=== PATIENT | female | born 1960 | race Caucasian/White ===

== ENCOUNTER 2017-10-04 19:43 | Emergency (ER) | payer OTHER ==
[2017-10-04 20:24] VITALS: BP 194/84
[2017-10-04] MEDS ORDERED: LORazepam 0.5 MG Tab PO ONE (21:39)
--- NOTE | 2017-10-04 23:25 | EDM.PDOC ---
ED HPI GENERAL MEDICAL PROBLEM - General Chief Complaint: Cardiovascular Problem Stated Complaint: HIGH BLOOD PRES. Time Seen by Provider: 10/04/17 20:50 Source of Information: Reports: Patient History Limitations: Reports: No Limitations - History of Present Illness INITIAL COMMENTS - FREE TEXT/NARRATIVE: 57-year-old female presents for evaluation and treatment of high blood pressure. Patient reports that her blood pressure was 190/106 at home. She contacted her primary care provider who instructed her to take a second dose of 5 mg amlodipine as well as 25 mg of HCTZ. In addition to these medications she did take her normal 5 mg of amlodipine and valsartan 320 mg. Upon arrival to the ER the patient's blood pressure is 194/84. Due to the ER being dizzy when I entered the room her blood pressure is now 142/68. Patient Denies any chest pain, shortness of breath, vision changes. Reports that she does have a headache but attributes this to a right ear ache. She is currently on amoxicillin for a right otitis media. She did feel nauseous earlier but has not had any vomiting. - Related Data Allergies Allergy/AdvReac Type Severity Reaction Status Date / Time No Known Allergies Allergy Verified 10/04/17 20:24 Home Meds: Home Meds LORazepam [Ativan] 0.5 mg PO ASDIRECTED PRN #10 tablet 03/26/16 [Rx] Levothyroxine 25 mcg PO ACBREAKFAST 03/26/16 [History] Sertraline [Zoloft] 50 mg PO BEDTIME 03/26/16 [History] Valsartan [Diovan] 160 mg PO BID #30 tablet 03/26/16 [Rx] Amoxicillin [Amoxil] 875 mg PO BID 10/04/17 [History] Past Medical History Cardiovascular History: Reports: Hypertension Psychiatric History: Reports: Depression Endocrine/Metabolic History: Reports: Hypothyroidism Social & Family History - Family History Cardiac: Reports: Hypertension, Stent - Tobacco Use Smoking Status *Q: Never Smoker Second Hand Smoke Exposure: No - Caffeine Use Caffeine Use: Reports: Coffee - Alcohol Use Days Per Week of Alcohol Use: 0 - Recreational Drug Use Recreational Drug Use: No ED ROS GENERAL - Review of Systems Review Of Systems: See Below HEENT: Reports: Ear Pain (Right). Denies: Vision Change Respiratory: Denies: Shortness of Breath Cardiovascular: Reports: Blood Pressure Problem. Denies: Chest Pain GI/Abdominal: Reports: Nausea (Earlier now resolved). Denies: Vomiting Neurological: Reports: Headache ED EXAM, GENERAL - Physical Exam Exam: See Below Exam Limited By: No Limitations General Appearance: Alert, WD/WN, No Apparent Distress Eye Exam: Bilateral Eye: Normal Inspection, PERRL Ears: Normal External Exam Ear Exam: Left Ear: TM normal (Right tympanic membrane is obscured by cerumen) Nose: Normal Inspection Throat/Mouth: Normal Inspection, Normal Lips, Normal Voice, No Airway Compromise Respiratory/Chest: No Respiratory Distress, Lungs Clear, Normal Breath Sounds Cardiovascular: Normal Peripheral Pulses, Regular Rate, Rhythm, No Murmur Neurological: Alert, Oriented, Normal Cognition Psychiatric: Normal Affect, Normal Mood Skin Exam: Warm, Dry, Normal Color EKG INTERPRETATION EKG Date: 10/04/17 Time: 21:55 Rhythm: NSR Rate (Beats/Min): 54 Lebeau: Normal P-Wave: Present QRS: Normal ST-T: Normal QT: Normal EKG Interpretation Comments: NSR at 54 bpm. No acute changes. Reviewed by myself and Dr. Moctezuma. Course - Vital Signs Last Recorded V/S: Last Vital Signs Temp 36.2 C 10/04/17 20:17 Pulse 62 10/04/17 20:17 Resp 17 10/04/17 20:17 BP 194/84 H 10/04/17 20:17 Pulse Ox 100 10/04/17 20:17 - Orders/Labs/Meds Labs: Laboratory Tests 10/04/17 10/04/17 10/04/17 Range/Units 21:50 21:50 21:52 WBC 12.06 H (3.98-10.04) K/mm3 RBC 4.67 (3.98-5.22) M/mm3 Hgb 13.5 (11.2-15.7) gm/L Hct 40.4 (34.1-44.9) % MCV 86.5 (79.4-94.8) fl MCH 28.9 (25.6-32.2) pg MCHC 33.4 (32.2-35.5) g/dl RDW Std Deviation 41.8 (36.4-46.3) fL Plt Count 354 (182-369) K/mm3 MPV 9.9 (9.4-12.3) fl Neut % (Auto) 70.5 (34.0-71.1) % Lymph % (Auto) 17.0 L (19.3-51.7) % Glynn % (Auto) 7.0 (4.7-12.5) % Eos % (Auto) 4.9 (0.7-5.8) Baso % (Auto) 0.2 (0.1-1.2) % Neut # (Auto) 8.50 H (1.56-6.13) K/mm3 Lymph # (Auto) 2.05 (1.18-3.74) K/mm3 Glynn # (Auto) 0.84 H (0.24-0.36) K/mm3 Eos # (Auto) 0.59 H (0.04-0.36) K/mm3 Baso # (Auto) 0.03 (0.01-0.08) K/mm3 Sodium 141 (136-145) mEq/L Potassium 3.8 (3.5-5.1) mEq/L Chloride 102 (98-107) mEq/L Carbon Dioxide 29 (21-32) mEq/L Anion Gap 13.8 (5-15) BUN 14 (7-18) mg/dL Creatinine 0.8 (0.55-1.02) mg/dL Est Cr Clr Drug Dosing 59.89 mL/min Estimated GFR (MDRD) > 60 (>60) mL/min BUN/Creatinine Ratio 17.5 (14-18) Glucose 116 H (74-106) mg/dL Calcium 9.4 (8.5-10.1) mg/dL Total Bilirubin 0.3 (0.2-1.0) mg/dL AST 20 (15-37) U/L ALT 44 (14-59) U/L Alkaline Phosphatase 104 (46-116) U/L Total Protein 7.3 (6.4-8.2) g/dl Albumin 3.9 (3.4-5.0) g/dl Globulin 3.4 gm/dL Albumin/Globulin Ratio 1.2 (1-2) Urine Color Yellow (Yellow) Urine Appearance Clear (Clear) Urine pH 5.5 (5.0-8.0) Ur Specific [place] 1.020 (1.005-1.030) Urine Protein Negative (Negative) Urine Glucose (UA) Negative (Negative) Urine Ketones Negative (Negative) Urine Occult Blood Negative (Negative) Urine Nitrite Negative (Negative) Urine Bilirubin Negative (Negative) Urine Urobilinogen 0.2 (0.2-1.0) Ur Leukocyte Esterase Negative (Negative) Urine RBC 0-5 (0-5) /hpf Urine WBC 0-5 (0-5) /hpf Ur Epithelial Cells 0-5 (0-5) /hpf Urine Bacteria Not seen (FEW) /hpf Urine Mucus Not seen (FEW) /hpf Meds: Medications Discontinued Medications Generic Name Dose Route Start Last Admin Trade Name Freq PRN Reason Stop Dose Admin Lorazepam 0.5 mg 10/04/17 21:39 10/04/17 21:47 Ativan PO 10/04/17 21:40 0.5 mg ONETIME ONE Administration - Re-Assessments/Exams Free Text/Narrative Re-Assessment/Exam: 10/04/17 23:23 I did give the patient some Ativan here in the ER as her blood pressures likely due to anxiety upon my arrival her blood pressure is greatly improved treating her at this point would cause hypotension. I reviewed the labs and EKG with the patient. Nothing emergent tonight. I informed her we'll discharge her as we try to lower blood pressure slowly over time. Sounds like she needs some medication adjustments. She is working with her primary care provider already on this and encouraged her to continue doing so. She should check her blood pressure at home and she is not doing this already. Patient's blood pressure has consistently been in the 140s systolic since receiving Ativan. I will discharge her home tonight. Discharge instructions as documented. Departure - Departure Time of Disposition: 23:23 Disposition: Home, Self-Care 01 Condition: Fair Clinical Impression: Hypertension Instructions: Hypertension, [id number] Referrals: Saad Macias MD [Primary Care Provider] - Forms: ED Department Discharge Additional Instructions: Check your blood pressure 2 or 3 times a week at different points throughout the day after a 5-15 minute rest. Do not take your blood pressure if your are experiencing any pain, or anxious or ill. If your blood pressure is high, wait 10-15 minutes and recheck your b/p. Record this in a log. continue with your current plan of care. May take your HCTZ daily as prescribed by your PCP. Follow-up with your primary care provider within 2 weeks for recheck of your symptoms. Recommend bringing your blood pressure log to that appointment. Please return to the ER if your symptoms change or worsen.
== END 2017-10-04 23:30 | disposition home or self-care (01) ==
LOC: JD.ED 19:43
DX: I10 Essential (primary) hypertension (principal)
CPT/HCPCS: 36415; 80053; 81001; 85025; 93005; 99283; A9270

== ENCOUNTER 2020-04-23 14:36 | Inpatient (IN) | payer OTHER ==
[2020-04-23] MEDS ORDERED: Sodium Chloride 0.9% 10 ML Syringe FLUSH PRN (15:11)
[2020-04-23] MEDS ORDERED: Sodium Chloride 0.9% 1,000 ML IV SCH (15:15)
--- NOTE | 2020-04-23 15:57 | CR ---
PROCEDURE INFORMATION: Exam: XR Chest, 1 View Exam date and time: 04/23/2020 3:00 PM Age: 60 years old Clinical indication: Chest pain; Patient HX: Covid positive, short of breath when walking and has cough TECHNIQUE: Imaging protocol: XR of the chest Views: 1 view. COMPARISON: No relevant prior studies available. FINDINGS: Lungs: Very minimal patchy opacity right mid and left lower lungs. Pleural space: Unremarkable. No pleural effusion. No pneumothorax. Heart/Mediastinum: Unremarkable. No cardiomegaly. Bones/joints: Unremarkable. IMPRESSION: Minimal bilateral ground-glass lung opacities suggest minimal bilateral pneumonia. Thank you for allowing us to participate in the care of your patient. Dictated and Authenticated by: Chas Hughes MD 04/23/2020 4:49 PM Central Time ([place] & [place]) [facility]
--- NOTE | 2020-04-23 15:58 | EDM.PDOC ---
ED HPI GENERAL MEDICAL PROBLEM - General Chief Complaint: Respiratory Problem Stated Complaint: COVID + AND SOB Time Seen by Provider: 04/23/20 14:50 Source of Information: Reports: Patient History Limitations: Reports: No Limitations - History of Present Illness INITIAL COMMENTS - FREE TEXT/NARRATIVE: The patient presents with shortness of breath, cough and fever. She was isis gnosed with COVID 19 and she is about 7 days out from symptoms start. She has pulse oximeter at home and her oxygen saturations have gone down to the mid 80s. She has a productive cough. She also has no appetite. She has no chest pain. She has no abdominal pain, nausea or vomiting. She has a history of asthma and she is on medications for that. Her is a technology coach and teacher and he brou ght it home. He is better and back at work. Onset: Gradual Duration: Day(s): (7) Severity: Moderate Improves with: Reports: None Worsens with: Reports: None Associated Symptoms: Reports: Cough, Fever/Chills, Shortness of Breath. Denies: Chest Pain, Headaches, Nausea/Vomiting Chest Pain Score (Numeric/FACES): 3 - Related Data Allergies Allergy/AdvReac Type Severity Reaction Status Date / Time No Known Allergies Allergy Verified 04/23/20 14:49 Home Meds: Home Meds LORazepam [Ativan] 0.5 mg PO ASDIRECTED PRN #10 tablet 03/26/16 [Rx] Levothyroxine 25 mcg PO ACBREAKFAST 03/26/16 [History] Sertraline [Zoloft] 50 mg PO BEDTIME 03/26/16 [History] Valsartan [Diovan] 160 mg PO BID #30 tablet 03/26/16 [Rx] Amoxicillin [Amoxil] 875 mg PO BID 10/04/17 [History] Past Medical History Cardiovascular History: Reports: Hypertension Respiratory History: Reports: Asthma Psychiatric History: Reports: Depression Endocrine/Metabolic History: Reports: Hypothyroidism - Infectious Disease History Infectious Disease History: Reports: Novel Coronavirus Social & Family History - Family History Cardiac: Reports: Hypertension, Stent - Tobacco Use Tobacco Use Status *Q: Never Tobacco User Second Hand Smoke Exposure: No - Caffeine Use Caffeine Use: Reports: Coffee - Recreational Drug Use Recreational Drug Use: No ED ROS GENERAL - Review of Systems Review Of Systems: See Below Constitutional: Reports: Fever, Chills, Malaise, Weakness, Fatigue HEENT: Reports: No Symptoms Respiratory: Reports: Shortness of Breath, Cough Cardiovascular: Reports: No Symptoms Endocrine: Reports: No Symptoms GI/Abdominal: Reports: No Symptoms : Reports: No Symptoms Musculoskeletal: Reports: No Symptoms ED EXAM, GENERAL - Physical Exam Exam: See Below Exam Limited By: No Limitations General Appearance: Alert, No Apparent Distress Ears: Normal External Exam Nose: Normal Inspection Head: Atraumatic, Normocephalic Neck: Normal Inspection Respiratory/Chest: No Respiratory Distress, Lungs Clear, Normal Breath Sounds Cardiovascular: Regular Rate, Rhythm, No Edema, No Murmur GI/Abdominal: Soft, Non-Tender, No Organomegaly, No Mass Back Exam: Normal Inspection Course - Vital Signs Last Recorded V/S: Last Vital Signs Temp 97.3 F 04/23/20 14:44 Pulse 73 04/23/20 14:44 Resp 20 04/23/20 14:44 BP 161/59 H 04/23/20 14:44 Pulse Ox 95 04/23/20 14:44 - Orders/Labs/Meds Orders: Active Orders 24 hr Category Date Time Status Cardiac Monitoring [RC] . DIRECTED Care 04/23/20 15:11 Active Oxygen Therapy [RC] PRN Care 04/23/20 15:11 Active Peripheral IV Care [RC] . DIRECTED Care 04/23/20 15:12 Active Sodium Chloride 0.9% [Normal Saline] 1,000 ml Med 04/23/20 15:15 Active IV .BOLUS Sodium Chloride 0.9% [Saline Flush] Med 04/23/20 15:11 Active 10 ml FLUSH ASDIRECTED PRN Peripheral IV Insertion Adult [OM.PC] Stat Oth 04/23/20 15:11 Ordered Medication Orders Sodium Chloride (Normal Saline) 1,000 mls @ 1,000 mls/hr IV .BOLUS CORBY Last Admin: 04/23/20 15:33 Dose: 1,000 mls/hr Documented by: CARROL Sodium Chloride (Saline Flush) 10 ml FLUSH ASDIRECTED PRN PRN Reason: Keep Vein Open Last Admin: 04/23/20 15:33 Dose: 10 ml Documented by: CARROL Labs: Laboratory Tests 04/23/20 04/23/20 04/23/20 Range/Units 15:41 15:41 15:41 WBC 7.50 (3.98-10.04) K/mm3 RBC 4.52 (3.98-5.22) M/mm3 Hgb 12.8 (11.2-15.7) gm/dl Hct 38.9 (34.1-44.9) % MCV 86.1 (79.4-94.8) fl MCH 28.3 (25.6-32.2) pg MCHC 32.9 (32.2-35.5) g/dl RDW Std Deviation 42.0 (36.4-46.3) fL Plt Count 289 (182-369) K/mm3 MPV 9.4 (9.4-12.3) fl Neut % (Auto) 73.2 H (34.0-71.1) % Lymph % (Auto) 16.4 L (19.3-51.7) % Benson % (Auto) 9.3 (4.7-12.5) % Eos % (Auto) 0.5 L (0.7-5.8) Baso % (Auto) 0.3 (0.1-1.2) % Neut # (Auto) 5.49 (1.56-6.13) K/mm3 Lymph # (Auto) 1.23 (1.18-3.74) K/mm3 Benson # (Auto) 0.70 H (0.24-0.36) K/mm3 Eos # (Auto) 0.04 (0.04-0.36) K/mm3 Baso # (Auto) 0.02 (0.01-0.08) K/mm3 Manual Slide Review Not Reportable D-Dimer, Quantitative 0.56 H (0.19-0.50) mg/L Sodium 138 (136-145) mEq/L Potassium 3.0 L (3.5-5.1) mEq/L Chloride 99 (98-107) mEq/L Carbon Dioxide 31 (21-32) mEq/L Anion Gap 11.0 (5-15) BUN 13 (7-18) mg/dL Creatinine 0.9 (0.55-1.02) mg/dL Est Cr Clr Drug Dosing 51.26 mL/min Estimated GFR (MDRD) > 60 (>60) mL/min BUN/Creatinine Ratio 14.4 (14-18) Glucose 100 (80-115) mg/dL Lactic Acid (0.4-2.0) mmol/L Calcium 8.7 (8.5-10.1) mg/dL Total Bilirubin 0.4 (0.2-1.0) mg/dL AST 24 (15-37) U/L ALT 44 (14-59) U/L Alkaline Phosphatase 77 (46-116) U/L C-Reactive Protein 5.3 H* (<1.0) mg/dL Total Protein 6.9 (6.4-8.2) g/dl Albumin 3.2 L (3.4-5.0) g/dl Globulin 3.7 gm/dL Albumin/Globulin Ratio 0.9 L (1-2) 04/23/20 Range/Units 15:41 WBC (3.98-10.04) K/mm3 RBC (3.98-5.22) M/mm3 Hgb (11.2-15.7) gm/dl Hct (34.1-44.9) % MCV (79.4-94.8) fl MCH (25.6-32.2) pg MCHC (32.2-35.5) g/dl RDW Std Deviation (36.4-46.3) fL Plt Count (182-369) K/mm3 MPV (9.4-12.3) fl Neut % (Auto) (34.0-71.1) % Lymph % (Auto) (19.3-51.7) % Benson % (Auto) (4.7-12.5) % Eos % (Auto) (0.7-5.8) Baso % (Auto) (0.1-1.2) % Neut # (Auto) (1.56-6.13) K/mm3 Lymph # (Auto) (1.18-3.74) K/mm3 Benson # (Auto) (0.24-0.36) K/mm3 Eos # (Auto) (0.04-0.36) K/mm3 Baso # (Auto) (0.01-0.08) K/mm3 Manual Slide Review D-Dimer, Quantitative (0.19-0.50) mg/L Sodium (136-145) mEq/L Potassium (3.5-5.1) mEq/L Chloride (98-107) mEq/L Carbon Dioxide (21-32) mEq/L Anion Gap (5-15) BUN (7-18) mg/dL Creatinine (0.55-1.02) mg/dL Est Cr Clr Drug Dosing mL/min Estimated GFR (MDRD) (>60) mL/min BUN/Creatinine Ratio (14-18) Glucose (80-115) mg/dL Lactic Acid 1.3 (0.4-2.0) mmol/L Calcium (8.5-10.1) mg/dL Total Bilirubin (0.2-1.0) mg/dL AST (15-37) U/L ALT (14-59) U/L Alkaline Phosphatase (46-116) U/L C-Reactive Protein (<1.0) mg/dL Total Protein (6.4-8.2) g/dl Albumin (3.4-5.0) g/dl Globulin gm/dL Albumin/Globulin Ratio (1-2) Meds: Medications Generic Name Dose Route Start Last Admin Trade Name Freq PRN Reason Stop Dose Admin Sodium Chloride 1,000 mls @ 1,000 mls/hr 04/23/20 15:15 04/23/20 15:33 Normal Saline IV 1,000 mls/hr .BOLUS CORBY Administration Sodium Chloride 10 ml 04/23/20 15:11 04/23/20 15:33 Saline Flush FLUSH 10 ml ASDIRECTED PRN Administration Keep Vein Open Discontinued Medications Generic Name Dose Route Start Last Admin Trade Name Ric PRN Reason Stop Dose Admin Dexamethasone 6 mg 04/23/20 16:37 Dexamethasone IVPUSH 04/23/20 16:38 ONETIME ONE - Re-Assessments/Exams Free Text/Narrative Re-Assessment/Exam: 04/23/20 15:58 I ordered oxygen PRN, IV NS 1L bolus, CXR and labs. 04/23/20 16:44 Her CXR shows minimal bilateral ground-glass lung opacities suggest minimal jumana ateral pneumonia. Her CBC looks good. Her D-dimer is elevated slightly at 0.56. Her K is low at 3. Her CRP is elevated at 5.3. Her oxygen saturations dropped down to 87% here. I put her on some oxygen and ordered dexamethasone 6mg IV. I feel she needs to be admitted. I called Dr Fernando and he agreed to the admission. Departure - Departure Time of Disposition: 16:50 Disposition: Admitted As Inpatient 64 Condition: Poor Clinical Impression: COVID-19, Pneumonia due to COVID-19 virus, Hypoxia - Discharge Information Forms: ED Department Discharge Sepsis Event Note (ED) - Evaluation Sepsis Screening Result: No Definite Risk - Focused Exam Vital Signs: Vital Signs Temp Pulse Resp BP Pulse Ox 04/23/20 14:44 97.3 F 73 20 161/59 H 95 - My Orders Last 24 Hours: My Active Orders 04/23/20 15:11 Cardiac Monitoring [RC] . DIRECTED Oxygen Therapy [RC] PRN Sodium Chloride 0.9% [Saline Flush] 10 ml FLUSH ASDIRECTED PRN Peripheral IV Insertion Adult [OM.PC] Stat 04/23/20 15:12 Peripheral IV Care [RC] . DIRECTED 04/23/20 15:15 Sodium Chloride 0.9% [Normal Saline] 1,000 ml IV .BOLUS - Assessment/Plan Last 24 Hours: My Active Orders 04/23/20 15:11 Cardiac Monitoring [RC] . DIRECTED Oxygen Therapy [RC] PRN Sodium Chloride 0.9% [Saline Flush] 10 ml FLUSH ASDIRECTED PRN Peripheral IV Insertion Adult [OM.PC] Stat 04/23/20 15:12 Peripheral IV Care [RC] . DIRECTED 04/23/20 15:15 Sodium Chloride 0.9% [Normal Saline] 1,000 ml IV .BOLUS
[2020-04-23] MEDS ORDERED: Dexamethasone 4 MG/ML SDV IVPUSH ONE (16:37)
[2020-04-23] MEDS ORDERED: Potassium Chloride 20 MEQ Tab.ER PO ONE ×2 (19:30→22:45)
[2020-04-23] MEDS ORDERED: Acetaminophen 325 MG Tab PO PRN (20:06)
[2020-04-23] MEDS ORDERED: Ondansetron 4 MG/2 ML SDV IV PRN (20:06)
--- NOTE | 2020-04-23 20:12 | PCM.HP.2 ---
H&P History of Present Illness - General Date of Service: 04/23/20 Admit Problem/Dx: Admission Diagnosis/Problem Admission Diagnosis/Problem Hypoxia - History of Present Illness Initial Comments - Free Text/Narative: Patient comes in today with worsening shortness of breath, cough, and fever. Patient's developed Covid my couple of weeks ago when she tested positive, and started developing symptoms, 7 days ago. She had a higher fever today and her pulse oximetry at home had gone down into the mid 80s. She has a friend who is a respiratory therapist who could Mr. to go to the emergency room for further evaluation. Patient does have a history of asthma that sounds like a cough variant asthma. She is had a decrease in appetite but denies any nausea, vomiting, or diarrhea. In the emergency department patient was found to be hypoxemic requiring 2 L to keep her oxygen saturations above 90%. Re commendation for her to be admitted for further treatment and respiratory support Chest Pain Score (Numeric/FACES): 3 - Related Data Allergies/Adverse Reactions: Allergies Allergy/AdvReac Type Severity Reaction Status Date / Time No Known Allergies Allergy Verified 04/23/20 18:40 Home Medications: Home Meds Sertraline [Zoloft] 100 mg PO BEDTIME 03/26/16 [History] Azelastine HCl 2 spray NASBOTH BEDTIME 04/23/20 [History] Fluticasone Propionate [Flonase] 2 spray NASBOTH DAILY 04/23/20 [History] Fluticasone/Vilanterol [Breo Ellipta 200-25 MCG Inhalation Kit] 1 puff INH BEDTIME 04/23/20 [History] LORazepam [Ativan] 0.5 mg PO Q6H PRN 04/23/20 [History] Tiotropium [place] [Spiriva Respimat] 2 puff INH DAILY 04/23/20 [History] amLODIPine [Norvasc] 10 mg PO BEDTIME 04/23/20 [History] hydroCHLOROthiazide [Hydrochlorothiazide] 25 mg PO BEDTIME 04/23/20 [History] Past Medical History HEENT History: Reports: Allergic Rhinitis, Impaired Vision, Other (See Below) Other HEENT History: wears glasses Cardiovascular History: Reports: Heart Murmur, Hypertension Respiratory History: Reports: Asthma, Bronchitis, Recurrent, Other (See Below) Other Respiratory History: chronic cough Psychiatric History: Reports: Anxiety, Depression Endocrine/Metabolic History: Reports: Hypothyroidism - Infectious Disease History Infectious Disease History: Reports: Novel Coronavirus - Past Surgical History HEENT Surgical History: Reports: None Cardiovascular Surgical History: Reports: None Respiratory Surgical History: Reports: None Social & Family History - Family History Family Medical History: Noncontributory Cardiac: Reports: Hypertension, Stent - Tobacco Use Tobacco Use Status *Q: Never Tobacco User Second Hand Smoke Exposure: No - Caffeine Use Caffeine Use: Reports: Coffee Caffeine Use Comment: 1 coffee per day - Recreational Drug Use Recreational Drug Use: No H&P Review of Systems - Review of Systems: Review Of Systems: Comprehensive ROS is negative, except as noted in HPI. Exam - Exam Exam: See Below - Vital Signs Vital Signs: Last Vital Signs Temp 99.3 F 04/23/20 18:34 Pulse 67 04/23/20 18:38 Resp 20 04/23/20 18:34 BP 142/77 H 04/23/20 18:38 Pulse Ox 96 04/23/20 18:38 Weight: 220 lb 11.2 oz - Exam Quality Assessment: Supplemental Oxygen General: Alert, Oriented, 4 HEENT: Conjunctiva Clear, EOMI, Hearing Intact, Mucosa Moist & [place]: Supple, Trachea Midline, 2 Lungs: Clear to Auscultation, Normal Respiratory Effort Cardiovascular: Regular Rate, Regular Rhythm GI/Abdominal Exam: Normal Bowel Sounds, Soft, Non-Tender, No Organomegaly, No Distention, No Abnormal Bruit, No Mass Back Exam: Normal Inspection Extremities: Normal Inspection, Normal Range of Motion, Non-Tender, No Pedal Edema, Normal Capillary Refill Peripheral Pulses: 2+: Posterior Tibial (L), Posterior Tibial (R), Dorsalis Pedis (L), Dorsalis Pedis (R) Skin: Warm, Dry, Intact Neuro Extensive - Mental Status: Alert, Oriented x3, Normal Mood/Affect, Normal Cognition, Memory Intact Neuro Extensive - Motor, Sensory, Reflexes: CN II-XII Intact Psychiatric: Alert, Normal Affect, Normal Mood - Patient Data Lab Results Last 24 hrs: Laboratory Results - last 24 hr 04/23/20 04/23/20 04/23/20 Range/Units 15:41 15:41 15:41 WBC 7.50 (3.98-10.04) K/mm3 RBC 4.52 (3.98-5.22) M/mm3 Hgb 12.8 (11.2-15.7) gm/dl Hct 38.9 (34.1-44.9) % MCV 86.1 (79.4-94.8) fl MCH 28.3 (25.6-32.2) pg MCHC 32.9 (32.2-35.5) g/dl RDW Std Deviation 42.0 (36.4-46.3) fL Plt Count 289 (182-369) K/mm3 MPV 9.4 (9.4-12.3) fl Neut % (Auto) 73.2 H (34.0-71.1) % Lymph % (Auto) 16.4 L (19.3-51.7) % [place] % (Auto) 9.3 (4.7-12.5) % Eos % (Auto) 0.5 L (0.7-5.8) Baso % (Auto) 0.3 (0.1-1.2) % Neut # (Auto) 5.49 (1.56-6.13) K/mm3 Lymph # (Auto) 1.23 (1.18-3.74) K/mm3 [place] # (Auto) 0.70 H (0.24-0.36) K/mm3 Eos # (Auto) 0.04 (0.04-0.36) K/mm3 Baso # (Auto) 0.02 (0.01-0.08) K/mm3 Manual Slide Review Not Reportable D-Dimer, Quantitative 0.56 H (0.19-0.50) mg/L Sodium 138 (136-145) mEq/L Potassium 3.0 L (3.5-5.1) mEq/L Chloride 99 (98-107) mEq/L Carbon Dioxide 31 (21-32) mEq/L Anion Gap 11.0 (5-15) BUN 13 (7-18) mg/dL Creatinine 0.9 (0.55-1.02) mg/dL Est Cr Clr Drug Dosing 51.26 mL/min Estimated GFR (MDRD) > 60 (>60) mL/min BUN/Creatinine Ratio 14.4 (14-18) Glucose 100 (80-115) mg/dL Lactic Acid (0.4-2.0) mmol/L Calcium 8.7 (8.5-10.1) mg/dL Total Bilirubin 0.4 (0.2-1.0) mg/dL AST 24 (15-37) U/L ALT 44 (14-59) U/L Alkaline Phosphatase 77 (46-116) U/L C-Reactive Protein 5.3 H* (<1.0) mg/dL Total Protein 6.9 (6.4-8.2) g/dl Albumin 3.2 L (3.4-5.0) g/dl Globulin 3.7 gm/dL Albumin/Globulin Ratio 0.9 L (1-2) 04/23/20 Range/Units 15:41 WBC (3.98-10.04) K/mm3 RBC (3.98-5.22) M/mm3 Hgb (11.2-15.7) gm/dl Hct (34.1-44.9) % MCV (79.4-94.8) fl MCH (25.6-32.2) pg MCHC (32.2-35.5) g/dl RDW Std Deviation (36.4-46.3) fL Plt Count (182-369) K/mm3 MPV (9.4-12.3) fl Neut % (Auto) (34.0-71.1) % Lymph % (Auto) (19.3-51.7) % [place] % (Auto) (4.7-12.5) % Eos % (Auto) (0.7-5.8) Baso % (Auto) (0.1-1.2) % Neut # (Auto) (1.56-6.13) K/mm3 Lymph # (Auto) (1.18-3.74) K/mm3 [place] # (Auto) (0.24-0.36) K/mm3 Eos # (Auto) (0.04-0.36) K/mm3 Baso # (Auto) (0.01-0.08) K/mm3 Manual Slide Review D-Dimer, Quantitative (0.19-0.50) mg/L Sodium (136-145) mEq/L Potassium (3.5-5.1) mEq/L Chloride (98-107) mEq/L Carbon Dioxide (21-32) mEq/L Anion Gap (5-15) BUN (7-18) mg/dL Creatinine (0.55-1.02) mg/dL Est Cr Clr Drug Dosing mL/min Estimated GFR (MDRD) (>60) mL/min BUN/Creatinine Ratio (14-18) Glucose (80-115) mg/dL Lactic Acid 1.3 (0.4-2.0) mmol/L Calcium (8.5-10.1) mg/dL Total Bilirubin (0.2-1.0) mg/dL AST (15-37) U/L ALT (14-59) U/L Alkaline Phosphatase (46-116) U/L C-Reactive Protein (<1.0) mg/dL Total Protein (6.4-8.2) g/dl Albumin (3.4-5.0) g/dl Globulin gm/dL Albumin/Globulin Ratio (1-2) Result Diagrams: 04/23/20 15:41 04/23/20 15:41 Imaging Impressions Last 24 hrs: Chest x-ray: Minimal bilateral groundglass lung opacities suggest minimal bilateral pneumonia. Sepsis Event Note - Evaluation Sepsis Screening Result: No Definite Risk - Focused Exam Vital Signs: Vital Signs Temp Temp Pulse Pulse Resp BP BP 04/23/20 18:38 67 142/77 H 04/23/20 18:34 99.3 F 67 20 04/23/20 14:44 97.3 F 73 20 161/59 H Pulse Ox 04/23/20 18:38 96 04/23/20 18:34 96 04/23/20 14:44 95 - Problem List (1) Asthma SNOMED Code(s): 034428648 ICD Code: J45.909 - UNSPECIFIED ASTHMA, UNCOMPLICATED Status: Acute Current Visit: Yes (2) Hypoxia SNOMED Code(s): 797579459 ICD Code: R09.02 - HYPOXEMIA Status: Acute Current Visit: Yes (3) Pneumonia due to COVID-19 virus SNOMED Code(s): 728936574147915077 ICD Code: U07.1 - COVID-19; J12.89 - OTHER VIRAL PNEUMONIA Status: Acute Current Visit: Yes Problem List Initiated/Reviewed/Updated: Yes Orders Last 24hrs: Active Orders 24 hr Category Date Time Status Patient Status [ADT] Routine ADT 04/23/20 18:47 Active Cardiac Monitoring [RC] . DIRECTED Care 04/23/20 15:11 Active Nurse Communication: Isolation [RC] ASDIRECTED Care 04/23/20 20:07 Ordered Oxygen Therapy [RC] PRN Care 04/23/20 15:11 Active Peripheral IV Care [RC] . DIRECTED Care 04/23/20 15:12 Active RT Incentive Spirometry [RC] ASDIRECTED Care 04/23/20 20:06 Ordered Up ad Amina [RC] ASDIRECTED Care 04/23/20 20:06 Ordered VTE/DVT Education [RC] PER UNIT ROUTINE Care 04/23/20 20:06 Ordered Verify Patient Consent Obtain [RC] ASDIRECTED Care 04/23/20 20:06 Ordered Vital Signs [RC] Q4H Care 04/23/20 20:06 Ordered Regular Diet [DIET] Diet 04/23/20 Dinner Ordered ABO/RH TYPE [BBK] Routine Lab 04/23/20 20:06 Ordered FRESH FROZEN PLASMA [BBK] Routine Lab 04/23/20 20:06 Ordered Acetaminophen [TylenoL] Med 04/23/20 20:06 Ordered 650 mg PO Q4H PRN Aspirin [Halfprin] Med 04/23/20 20:15 Ordered 81 mg PO DAILY Azelastine HCl [Azelastine HCl] Med 04/23/20 21:00 Ordered 2 spray NASBOTH BEDTIME Enoxaparin [Lovenox] Med 04/24/20 09:00 Ordered 40 mg SUBCUT DAILY Fluticasone Propionate [[place] Digihaler] Med 04/24/20 09:00 Ordered 2 spray NASBOTH DAILY Fluticasone/Vilanterol Med 04/23/20 21:00 Ordered 1 puff INH BEDTIME LORazepam Med 04/23/20 20:10 Ordered 0.5 mg PO Q6H PRN Ondansetron [Zofran] Med 04/23/20 20:06 Ordered 4 mg IV Q4H PRN Remdesivir (Eua) [Remdesivir (EUA)] 100 mg Med 04/24/20 20:15 Ordered Sodium Chloride 0.9% [Normal Saline] 100 ml IV Q24H Remdesivir (Eua) [Remdesivir (EUA)] 200 mg Med 04/23/20 20:06 Ordered Sodium Chloride 0.9% [Normal Saline] 250 ml IV ONETIME Sertraline [Zoloft] Med 04/23/20 21:00 Ordered 100 mg PO BEDTIME Sodium Chloride 0.9% [Normal Saline] 1,000 ml Med 04/23/20 15:15 Active IV .BOLUS Sodium Chloride 0.9% [Saline Flush] Med 04/23/20 15:11 Active 10 ml FLUSH ASDIRECTED PRN Tiotropium [place] [Spiriva Respimat] Med 04/24/20 09:00 Ordered 2 puff INH DAILY amLODIPine [Norvasc] Med 04/23/20 21:00 Ordered 10 mg PO BEDTIME dexAMETHasone Med 04/24/20 09:00 Ordered 6 mg PO DAILY hydroCHLOROthiazide Med 04/23/20 21:00 Ordered 25 mg PO BEDTIME Isolation [COMM] Stat Oth 04/23/20 20:06 Ordered Peripheral IV Insertion Adult [OM.PC] Stat Oth 04/23/20 15:11 Ordered RT Acapella [RESPCARE] Routine Oth 04/23/20 20:06 Ordered Transfuse Fresh Frozen Plasma [COMM] Routine Oth 04/23/20 20:06 Ordered Resuscitation Status Routine Resus Stat 04/23/20 20:06 Ordered Medication Orders Acetaminophen (Tylenol) 650 mg PO Q4H PRN PRN Reason: Pain (Mild 1-3)/fever Amlodipine Besylate (Norvasc) 10 mg PO BEDTIME CORBY Aspirin (Halfprin) 81 mg PO DAILY CORBY Dexamethasone (Dexamethasone) 6 mg PO DAILY CORBY Stop: 05/03/20 09:01 Enoxaparin Sodium (Lovenox) 40 mg SUBCUT DAILY CORBY Hydrochlorothiazide (Hydrochlorothiazide) 25 mg PO BEDTIME CORBY Sodium Chloride (Normal Saline) 1,000 mls @ 1,000 mls/hr IV .BOLUS CORBY Last Admin: 04/23/20 15:33 Dose: 1,000 mls/hr Documented by: CARROL Remdesivir 200 mg/ Sodium (Chloride) 250 mls @ 250 mls/hr IV ONETIME ONE Stop: 04/23/20 20:07 Remdesivir 100 mg/ Sodium (Chloride) 100 mls @ 100 mls/hr IV Q24H CORBY Stop: 04/27/20 21:14 Non-Formulary Medication (Azelastine Hcl [Azelastine Hcl]) 2 spray NASBOTH BEDTIME CORBY Non-Formulary Medication (Fluticasone Propionate [[place] Digihaler]) 2 spray NASBOTH DAILY CORBY Non-Formulary Medication (Fluticasone/Vilanterol) 1 puff INH BEDTIME CORBY Non-Formulary Medication (Lorazepam) 0.5 mg PO Q6H PRN PRN Reason: Anxiety Non-Formulary Medication (Tiotropium [place] [Spiriva Respimat]) 2 puff INH DAILY CORBY Ondansetron HCl (Zofran) 4 mg IV Q4H PRN PRN Reason: Nausea/Vomiting Sertraline HCl (Zoloft) 100 mg PO BEDTIME CORBY Sodium Chloride (Saline Flush) 10 ml FLUSH ASDIRECTED PRN PRN Reason: Keep Vein Open Last Admin: 04/23/20 15:33 Dose: 10 ml Documented by: CARROL Assessment/Plan Comment:: Assessment 60-year-old female with asthma, hypertension, and morbid obesity presents with worsening COVID-19 symptoms and hypoxemia. Chest x-ray consistent with mild pneumonia. She requires 2 L of oxygen per minute via nasal cannula to keep oxygen saturations in the mid 90s. Hypokalemia Plan * Admit to medical floor on telemetry and continuous pulse oximetry * Start remdesivir, dexamethasone (given in ER), and convalescent plasma * I spoke with Suzanne Lu to provide information about convalescent p lasma. I offered the "fax sheet for patients and parents/caregivers, for COVID-19 convalescent plasma to read and review. I stated that therapy has been approved by an emergency use authorization process and has not fully been FDA reviewed or approved. I shared potential risks from the therapy including transmission of blood borne pathogen such as HIV and hepatitis C, allergic and transfusion related reactions, post transfusion purpura. Additionally theoretical risks include a phenomenon called antibodydependent enhancement of infection such as is seen in dengue or attenuation of an immune response that may make patients more susceptible to reinfection. * FiO2 to keep SPO2 between 88 and 94%. * Incentive spirometer and Acapella * RT to consult and treat * VTE prophylaxis with Lovenox. Patient will be started on Lovenox 40 mg every 12 hours secondary to her obesity. * Aspirin 81 mg daily * Potassium 40 mEq p.o. x1 * Repeat lab work in the morning * Continue home medications for asthma and hypertension * No antibiotics at this time. * Encourage good nutrition high-protein intake. * CODE STATUS: Full code - Mortality Measure Prognosis:: Good
[2020-04-23] MEDS ORDERED: LORazepam 0.5 MG Tab PO PRN (20:18)
[2020-04-23] MEDS ORDERED: amLODIPine 5 MG Tab PO SCH (21:00)
[2020-04-23] MEDS: Formoterol/Mometasone 200-5 MCG 8.8 GM Inhaler IH SCH (21:02)
[2020-04-23] MEDS: Glycopyrrolate 15.6 MCG Cap.W.Dev Kit of 6 IH SCH (21:03)
[2020-04-23] MEDS: Sertraline 50 MG Tab PO SCH (22:02)
[2020-04-23] MEDS: Hydrochlorothiazide 25 MG Tab PO SCH (22:03)
[2020-04-23] MEDS: Aspirin 81 MG Tab.EC PO SCH (22:03)
[2020-04-23] MEDS ORDERED: Albuterol 6.7 GM Inhaler INH PRN (22:52)
[2020-04-23] MEDS ORDERED: Sodium Chloride 0.9% 250 ML ONE (23:16)
[2020-04-24] MEDS: Formoterol/Mometasone 200-5 MCG 8.8 GM Inhaler IH SCH ×2 (05:34→20:24)
[2020-04-24] MEDS: Glycopyrrolate 15.6 MCG Cap.W.Dev Kit of 6 IH SCH ×2 (05:35→20:24)
[2020-04-24] MEDS ORDERED: FLUTICASONE PROPIONATE NASBOTH SCH (09:00)
[2020-04-24] MEDS: Aspirin 81 MG Tab.EC PO SCH (10:35)
[2020-04-24] MEDS: Enoxaparin 40 MG/0.4 ML Syringe SUBCUT SCH (10:35)
--- NOTE | 2020-04-24 11:54 | PCM.PN ---
- General Info Date of Service: 04/24/20 Admission Dx/Problem (Free Text): Admission Diagnosis/Problem Admission Diagnosis/Problem Hypoxia Subjective Update: Patient reports that she feels much better than yesterday. However, she states she still does not have a taste or smell. Continues on 2 L per nasal cannula. Functional Status: Reports: Pain Controlled, Tolerating Diet, Urinating, Incentive Spirometry - Review of Systems General: Reports: Fatigue. Denies: Appetite (Is not able to taste or smell.) HEENT: Reports: No Symptoms Pulmonary: Reports: Shortness of Breath, Cough. Denies: Sputum Cardiovascular: Reports: No Symptoms Gastrointestinal: Reports: No Symptoms Genitourinary: Reports: No Symptoms Musculoskeletal: Reports: No Symptoms Skin: Reports: No Symptoms Neurological: Reports: No Symptoms Psychiatric: Reports: No Symptoms - Patient Data Vitals - Most Recent: Last Vital Signs Temp 98.1 F 04/24/20 08:04 Pulse 60 04/24/20 11:09 Resp 16 04/24/20 11:09 BP 135/96 H 04/24/20 11:09 Pulse Ox 95 04/24/20 11:09 Weight - Most Recent: 222 lb 4.8 oz I&O - Last 24 Hours: Intake & Output 04/23/20 04/24/20 04/24/20 22:59 06:59 14:59 Intake Total 2084 Output Total 2300 Balance -216 Lab Results Last 24 Hours: Laboratory Results - last 24 hr 04/23/20 04/23/20 04/23/20 Range/Units 15:41 15:41 15:41 WBC 7.50 (3.98-10.04) K/mm3 RBC 4.52 (3.98-5.22) M/mm3 Hgb 12.8 (11.2-15.7) gm/dl Hct 38.9 (34.1-44.9) % MCV 86.1 (79.4-94.8) fl MCH 28.3 (25.6-32.2) pg MCHC 32.9 (32.2-35.5) g/dl RDW Std Deviation 42.0 (36.4-46.3) fL Plt Count 289 (182-369) K/mm3 MPV 9.4 (9.4-12.3) fl Neut % (Auto) 73.2 H (34.0-71.1) % Lymph % (Auto) 16.4 L (19.3-51.7) % [place] % (Auto) 9.3 (4.7-12.5) % Eos % (Auto) 0.5 L (0.7-5.8) Baso % (Auto) 0.3 (0.1-1.2) % Neut # (Auto) 5.49 (1.56-6.13) K/mm3 Lymph # (Auto) 1.23 (1.18-3.74) K/mm3 [place] # (Auto) 0.70 H (0.24-0.36) K/mm3 Eos # (Auto) 0.04 (0.04-0.36) K/mm3 Baso # (Auto) 0.02 (0.01-0.08) K/mm3 Manual Slide Review Not Reportable D-Dimer, Quantitative 0.56 H (0.19-0.50) mg/L Sodium 138 (136-145) mEq/L Potassium 3.0 L (3.5-5.1) mEq/L Chloride 99 (98-107) mEq/L Carbon Dioxide 31 (21-32) mEq/L Anion Gap 11.0 (5-15) BUN 13 (7-18) mg/dL Creatinine 0.9 (0.55-1.02) mg/dL Est Cr Clr Drug Dosing 51.26 mL/min Estimated GFR (MDRD) > 60 (>60) mL/min BUN/Creatinine Ratio 14.4 (14-18) Glucose 100 (80-115) mg/dL Lactic Acid (0.4-2.0) mmol/L Calcium 8.7 (8.5-10.1) mg/dL Phosphorus (2.6-4.7) mg/dL Magnesium (1.8-2.4) mg/dl Total Bilirubin 0.4 (0.2-1.0) mg/dL AST 24 (15-37) U/L ALT 44 (14-59) U/L Alkaline Phosphatase 77 (46-116) U/L C-Reactive Protein 5.3 H* (<1.0) mg/dL Total Protein 6.9 (6.4-8.2) g/dl Albumin 3.2 L (3.4-5.0) g/dl Globulin 3.7 gm/dL Albumin/Globulin Ratio 0.9 L (1-2) Blood Type 04/23/20 04/23/20 04/24/20 Range/Units 15:41 15:41 09:04 WBC 6.47 (3.98-10.04) K/mm3 RBC 4.75 (3.98-5.22) M/mm3 Hgb 13.4 (11.2-15.7) gm/dl Hct 40.4 (34.1-44.9) % MCV 85.1 (79.4-94.8) fl MCH 28.2 (25.6-32.2) pg MCHC 33.2 (32.2-35.5) g/dl RDW Std Deviation 42.0 (36.4-46.3) fL Plt Count 313 (182-369) K/mm3 MPV 9.5 (9.4-12.3) fl Neut % (Auto) 81.0 H (34.0-71.1) % Lymph % (Auto) 15.1 L (19.3-51.7) % [place] % (Auto) 3.1 L (4.7-12.5) % Eos % (Auto) 0 L (0.7-5.8) Baso % (Auto) 0.2 (0.1-1.2) % Neut # (Auto) 5.24 (1.56-6.13) K/mm3 Lymph # (Auto) 0.98 L (1.18-3.74) K/mm3 [place] # (Auto) 0.20 L (0.24-0.36) K/mm3 Eos # (Auto) 0.00 L (0.04-0.36) K/mm3 Baso # (Auto) 0.01 (0.01-0.08) K/mm3 Manual Slide Review D-Dimer, Quantitative (0.19-0.50) mg/L Sodium (136-145) mEq/L Potassium (3.5-5.1) mEq/L Chloride (98-107) mEq/L Carbon Dioxide (21-32) mEq/L Anion Gap (5-15) BUN (7-18) mg/dL Creatinine (0.55-1.02) mg/dL Est Cr Clr Drug Dosing mL/min Estimated GFR (MDRD) (>60) mL/min BUN/Creatinine Ratio (14-18) Glucose (80-115) mg/dL Lactic Acid 1.3 (0.4-2.0) mmol/L Calcium (8.5-10.1) mg/dL Phosphorus (2.6-4.7) mg/dL Magnesium (1.8-2.4) mg/dl Total Bilirubin (0.2-1.0) mg/dL AST (15-37) U/L ALT (14-59) U/L Alkaline Phosphatase (46-116) U/L C-Reactive Protein (<1.0) mg/dL Total Protein (6.4-8.2) g/dl Albumin (3.4-5.0) g/dl Globulin gm/dL Albumin/Globulin Ratio (1-2) Blood Type B POSITIVE 04/24/20 04/24/20 Range/Units 09:04 09:04 WBC (3.98-10.04) K/mm3 RBC (3.98-5.22) M/mm3 Hgb (11.2-15.7) gm/dl Hct (34.1-44.9) % MCV (79.4-94.8) fl MCH (25.6-32.2) pg MCHC (32.2-35.5) g/dl RDW Std Deviation (36.4-46.3) fL Plt Count (182-369) K/mm3 MPV (9.4-12.3) fl Neut % (Auto) (34.0-71.1) % Lymph % (Auto) (19.3-51.7) % [place] % (Auto) (4.7-12.5) % Eos % (Auto) (0.7-5.8) Baso % (Auto) (0.1-1.2) % Neut # (Auto) (1.56-6.13) K/mm3 Lymph # (Auto) (1.18-3.74) K/mm3 [place] # (Auto) (0.24-0.36) K/mm3 Eos # (Auto) (0.04-0.36) K/mm3 Baso # (Auto) (0.01-0.08) K/mm3 Manual Slide Review D-Dimer, Quantitative 0.50 (0.19-0.50) mg/L Sodium 139 (136-145) mEq/L Potassium 3.3 L (3.5-5.1) mEq/L Chloride 100 (98-107) mEq/L Carbon Dioxide 28 (21-32) mEq/L Anion Gap 14.3 (5-15) BUN 10 (7-18) mg/dL Creatinine 0.8 (0.55-1.02) mg/dL Est Cr Clr Drug Dosing 57.67 mL/min Estimated GFR (MDRD) > 60 (>60) mL/min BUN/Creatinine Ratio 12.5 L (14-18) Glucose 160 H (80-115) mg/dL Lactic Acid (0.4-2.0) mmol/L Calcium 9.1 (8.5-10.1) mg/dL Phosphorus 2.4 L (2.6-4.7) mg/dL Magnesium 1.9 (1.8-2.4) mg/dl Total Bilirubin 0.4 (0.2-1.0) mg/dL AST 20 (15-37) U/L ALT 47 (14-59) U/L Alkaline Phosphatase 84 (46-116) U/L C-Reactive Protein 6.0 H* (<1.0) mg/dL Total Protein 7.6 (6.4-8.2) g/dl Albumin 3.4 (3.4-5.0) g/dl Globulin 4.2 gm/dL Albumin/Globulin Ratio 0.8 L (1-2) Blood Type Med Orders - Current: Current Medications Acetaminophen (Tylenol) 650 mg PO Q4H PRN PRN Reason: Pain (Mild 1-3)/fever Albuterol (Proventil Hfa) 0 gm INH Q4H PRN PRN Reason: Shortness of Breath Amlodipine Besylate (Norvasc) 10 mg PO BEDTIME [facility] Aspirin (Halfprin) 81 mg PO DAILY [facility] Last Admin: 04/24/20 10:35 Dose: 81 mg Documented by: Dexamethasone (Dexamethasone) 6 mg PO DAILY [facility] Stop: 05/02/20 09:01 Enoxaparin Sodium (Lovenox) 40 mg SUBCUT DAILY [facility] Last Admin: 04/24/20 10:35 Dose: 40 mg Documented by: Fluticasone Propionate (Flonase) 0 gm NASBOTH DAILY [facility] Glycopyrrolate (Seebri Neohaler) 15.6 mcg IH BIDRT [facility] Last Admin: 04/24/20 05:35 Dose: 1 cap Documented by: Hydrochlorothiazide (Hydrochlorothiazide) 25 mg PO BEDTIME [facility] Last Admin: 04/23/20 22:03 Dose: 25 mg Documented by: Remdesivir 100 mg/ Sodium (Chloride) 100 mls @ 100 mls/hr IV Q24H [facility] Stop: 04/27/20 21:59 Lorazepam (Ativan) 0.5 mg PO Q6H PRN PRN Reason: Anxiety Mometasone Furoate/Formoterol Fumar (Dulera 200-5 Mcg) 2 puff [facility] BIDRT [facility] Last Admin: 04/24/20 05:34 Dose: 2 puff Documented by: Azelastine Hcl Nasal (Pinole Ptom) 2 spray .XX BEDTIME [facility] Ondansetron HCl (Zofran) 4 mg IV Q4H PRN PRN Reason: Nausea/Vomiting Potassium Chloride (Klor-Con M20) 40 meq PO Q4H [facility] Stop: 04/24/20 15:31 Sertraline HCl (Zoloft) 100 mg PO BEDTIME [facility] Last Admin: 04/23/20 22:02 Dose: 100 mg Documented by: Sodium Chloride (Saline Flush) 10 ml FLUSH ASDIRECTED PRN PRN Reason: Keep Vein Open Last Admin: 04/23/20 15:33 Dose: 10 ml Documented by: Discontinued Medications Amlodipine Besylate (Norvasc) 10 mg PO BEDTIME [facility] Last Admin: 04/23/20 22:04 Dose: 10 mg Documented by: Dexamethasone (Dexamethasone) 6 mg IVPUSH ONETIME ONE Stop: 04/23/20 16:38 Last Admin: 04/23/20 16:44 Dose: 6 mg Documented by: Sodium Chloride (Normal Saline) 1,000 mls @ 1,000 mls/hr IV .BOLUS [facility] Last Admin: 04/23/20 15:33 Dose: 1,000 mls/hr Documented by: Remdesivir 200 mg/ Sodium (Chloride) 250 mls @ 250 mls/hr IV ONETIME ONE Stop: 04/23/20 21:59 Last Admin: 04/23/20 22:07 Dose: 250 mls/hr Documented by: Sodium Chloride (Normal Saline) Confirm Administered Dose 250 mls @ as directed .ROUTE .STK-MED ONE Stop: 04/23/20 23:17 Last Admin: 04/24/20 00:32 Dose: Not Given Documented by: Potassium Chloride (Klor-Con M20) 40 meq PO ONETIME ONE Stop: 04/23/20 22:46 Last Admin: 04/23/20 22:49 Dose: 40 meq Documented by: - Exam Quality Assessment: Supplemental Oxygen (2 L per nasal cannula.), DVT Prophylaxis (Lovenox) General: Alert, Oriented, Cooperative, No Acute Distress HEENT: Pupils Equal, Pupils Reactive, Mucous Membr. Moist/[place]: Supple, Trachea Midline. No: Lymphadenopathy Lungs: Clear to Auscultation, Normal Respiratory Effort Cardiovascular: Regular Rate, Regular Rhythm, No Murmurs GI/Abdominal Exam: Normal Bowel Sounds, Soft, Non-Tender, No Distention (Female) Exam: Deferred Back Exam: Normal Inspection, Full Range of Motion Extremities: Normal Inspection, Normal Range of Motion, Non-Tender, No Pedal Edema, Normal Capillary Refill Peripheral Pulses: 2+: Radial (L), Radial (R), Dorsalis Pedis (L), Dorsalis Pedis (R) Skin: Warm, Dry, Intact Neurological: No New Focal Deficit Psy/Mental Status: Alert, Normal Affect, Normal Mood Sepsis Event Note - Evaluation Sepsis Screening Result: No Definite Risk - Focused Exam Vital Signs: Vital Signs Temp Pulse Pulse Resp BP BP Pulse Ox 04/24/20 11:09 60 16 135/96 H 95 04/24/20 08:38 04/24/20 08:04 98.1 F 56 L 16 137/87 99 04/24/20 07:37 04/24/20 06:16 98.2 F 62 20 111/58 L 95 04/24/20 05:35 04/24/20 01:06 98.2 F 58 L 20 115/63 95 04/24/20 00:55 98.2 F 58 L 20 115/63 95 04/24/20 00:40 98.2 F 61 61 20 107/53 L 107/53 L 95 04/24/20 00:20 98.2 F 62 20 108/58 L 93 L 04/24/20 00:19 98.2 F 62 20 108/58 L 93 L 04/24/20 00:02 98.2 F 61 20 108/58 L 93 L 04/23/20 23:47 98.2 F 65 65 22 H 117/68 117/68 95 Pulse Ox 04/24/20 11:09 04/24/20 08:38 92 L 04/24/20 08:04 04/24/20 07:37 97 04/24/20 06:16 04/24/20 05:35 96 04/24/20 01:06 04/24/20 00:55 04/24/20 00:40 04/24/20 00:20 04/24/20 00:19 04/24/20 00:02 04/23/20 23:47 - Problem List & Annotations (1) Asthma SNOMED Code(s): 011089589 Code(s): J45.909 - UNSPECIFIED ASTHMA, UNCOMPLICATED Status: Acute Priority: High Current Visit: Yes (2) COVID-19 SNOMED Code(s): 982231626 Code(s): U07.1 - COVID-19 Status: Acute Priority: High Current Visit: Yes (3) Hypoxia SNOMED Code(s): 413834588 Code(s): R09.02 - HYPOXEMIA Status: Acute Priority: High Current Visit: Yes (4) Pneumonia due to COVID-19 virus SNOMED Code(s): 739196346953440025 Code(s): U07.1 - COVID-19; J12.89 - OTHER VIRAL PNEUMONIA Status: Acute Priority: High Current Visit: Yes - Problem List Review Problem List Initiated/Reviewed/Updated: Yes - My Orders Last 24 Hours: My Active Orders 04/24/20 11:30 Potassium Chloride [Klor-Con M20] 40 meq PO Q4H 04/25/20 05:11 C-REACTIVE PROTEIN [CHEM] DAILY COMPREHENSIVE METABOLIC PN,CMP [CHEM] DAILY D-DIMER QUANTITATIVE [COAG] DAILY MAGNESIUM [CHEM] DAILY PHOSPHORUS [CHEM] DAILY 04/25/20 08:45 CBC WITH AUTO DIFF [HEME] DAILY 04/26/20 05:11 C-REACTIVE PROTEIN [CHEM] DAILY COMPREHENSIVE METABOLIC PN,CMP [CHEM] DAILY D-DIMER QUANTITATIVE [COAG] DAILY MAGNESIUM [CHEM] DAILY PHOSPHORUS [CHEM] DAILY 04/26/20 08:45 CBC WITH AUTO DIFF [HEME] DAILY 04/27/20 05:11 C-REACTIVE PROTEIN [CHEM] DAILY COMPREHENSIVE METABOLIC PN,CMP [CHEM] DAILY D-DIMER QUANTITATIVE [COAG] DAILY MAGNESIUM [CHEM] DAILY PHOSPHORUS [CHEM] DAILY 04/27/20 08:45 CBC WITH AUTO DIFF [HEME] DAILY 04/28/20 05:11 C-REACTIVE PROTEIN [CHEM] DAILY COMPREHENSIVE METABOLIC PN,CMP [CHEM] DAILY D-DIMER QUANTITATIVE [COAG] DAILY MAGNESIUM [CHEM] DAILY PHOSPHORUS [CHEM] DAILY 04/28/20 08:45 CBC WITH AUTO DIFF [HEME] DAILY 04/29/20 05:11 C-REACTIVE PROTEIN [CHEM] DAILY COMPREHENSIVE METABOLIC PN,CMP [CHEM] DAILY D-DIMER QUANTITATIVE [COAG] DAILY MAGNESIUM [CHEM] DAILY PHOSPHORUS [CHEM] DAILY 04/29/20 08:45 CBC WITH AUTO DIFF [HEME] DAILY - Assessment Assessment:: Assessment 60-year-old female with asthma, hypertension, and morbid obesity presents with worsening COVID-19 symptoms and hypoxemia. Chest x-ray consistent with mild pneumonia. She requires 2 L of oxygen per minute via nasal cannula to keep oxygen saturations in the mid 90s. Hypokalemia 04/24/20 * Patient has received 2 units of convalescent plasma * Day 2 of remdesivir and dexamethasone. * Incentive spirometer and Acapella every hour while awake. * Respiratory therapy to titrate oxygen. * Lab work reveals: D-dimer 0.50 down from 0.56, potassium 3.3 which is up from 3.0, phosphorus 2.4, magnesium 1.9, C-reactive protein 6.0 which is down from 5.3. * Albuterol HFA as needed for shortness of breath and/or wheezing. - Plan Plan:: Assessment 60-year-old female with asthma, hypertension, and morbid obesity presents with worsening COVID-19 symptoms and hypoxemia. Chest x-ray consistent with mild pneumonia. She requires 2 L of oxygen per minute via nasal cannula to keep oxygen saturations in the mid 90s. Hypokalemia Plan * Admit to medical floor on telemetry and continuous pulse oximetry * Start remdesivir, dexamethasone (given in ER), and convalescent plasma * I spoke with Suzanne Lu to provide information about convalescent plasma. I offered the "fax sheet for patients and parents/caregivers, for COVID-19 convalescent plasma to read and review. I stated that therapy has been approved by an emergency use authorization process and has not fully been FDA reviewed or approved. I shared potential risks from the therapy including transmission of blood borne pathogen such as HIV and hepatitis C, allergic and transfusion related reactions, post transfusion purpura. Additionally theoretical risks include a phenomenon called antibodydependent enhancement of infection such as is seen in dengue or attenuation of an immune response that may make patients more susceptible to reinfection. * FiO2 to keep SPO2 between 88 and 94%. * Incentive spirometer and Acapella * RT to consult and treat * VTE prophylaxis with Lovenox. Patient will be started on Lovenox 40 mg every 12 hours secondary to her obesity. * Aspirin 81 mg daily * Potassium 40 mEq p.o. x1 * Repeat lab work in the morning * Continue home medications for asthma and hypertension * No antibiotics at this time. * Encourage good nutrition high-protein intake. * CODE STATUS: Full code 04/24/20 * Continue remdesivir and dexamethasone. * Respiratory therapy to continue titrating oxygen. * Continue incentive spirometer and Acapella. * Lovenox for DVT prophylaxis * Potassium 40 mEq every 4 hours x 2 doses today. * Repeat labs in the morning. * Patient is a full code. * Patient will be here for at least 5 days due to the treatment for Covid.
[2020-04-24] MEDS: Fluticasone Propionate Nasal Spray 16 GM Bottle NASBOTH SCH (11:55)
[2020-04-24] MEDS: Potassium Chloride 20 MEQ Tab.ER PO SCH ×2 (11:56→15:50)
[2020-04-24] MEDS: Dexamethasone 4 MG Tab PO SCH (11:58)
[2020-04-24] MEDS ORDERED: AZELASTINE HCL SCH (21:00)
[2020-04-24] MEDS: amLODIPine 10 MG Tab PO SCH (21:23)
[2020-04-24] MEDS: Hydrochlorothiazide 25 MG Tab PO SCH (21:23)
[2020-04-24] MEDS: REMDESIVIR (EUA) 100 MG in Sodium Chloride 0.9% 100 ML IV SCH (21:24)
[2020-04-24] MEDS: Sertraline 50 MG Tab PO SCH (21:24)
[2020-04-25] MEDS: Glycopyrrolate 15.6 MCG Cap.W.Dev Kit of 6 IH SCH ×2 (05:36→20:17)
[2020-04-25] MEDS: Formoterol/Mometasone 200-5 MCG 8.8 GM Inhaler IH SCH ×2 (05:36→20:17)
[2020-04-25] MEDS: Dexamethasone 4 MG Tab PO SCH (09:38)
[2020-04-25] MEDS: Hydrochlorothiazide 25 MG Tab PO SCH (09:39)
[2020-04-25] MEDS: Aspirin 81 MG Tab.EC PO SCH (09:39)
[2020-04-25] MEDS: Fluticasone Propionate Nasal Spray 16 GM Bottle NASBOTH SCH (09:39)
[2020-04-25] MEDS: Enoxaparin 40 MG/0.4 ML Syringe SUBCUT SCH (09:39)
[2020-04-25] MEDS ORDERED: Calcium Carbonate 500 MG Tab.Chew PO PRN (10:27)
[2020-04-25] MEDS ORDERED: Melatonin 3 MG Tab PO PRN (10:27)
--- NOTE | 2020-04-25 13:44 | PCM.PN ---
<Canales,DeAnn M - Last Filed: 04/25/20 13:39> - General Info Date of Service: 04/25/20 Admission Dx/Problem (Free Text): Admission Diagnosis/Problem Admission Diagnosis/Problem Hypoxia Subjective Update: Reports that she is feeling so much better. She is currently on room air. States she still does not have any taste or smell. Functional Status: Reports: Pain Controlled, Tolerating Diet, Ambulating, Urinating, Incentive Spirometry - Review of Systems General: Reports: No Symptoms HEENT: Reports: No Symptoms Pulmonary: Reports: Shortness of Breath, Cough, Sputum. Denies: Wheezing Cardiovascular: Reports: No Symptoms Gastrointestinal: Reports: No Symptoms Genitourinary: Reports: No Symptoms Musculoskeletal: Reports: No Symptoms Skin: Reports: No Symptoms Neurological: Reports: No Symptoms Psychiatric: Reports: No Symptoms - Patient Data Vitals - Most Recent: Last Vital Signs Temp 98.6 F 04/25/20 07:57 Pulse 61 04/25/20 07:57 Resp 16 04/25/20 07:57 BP 120/84 04/25/20 07:57 Pulse Ox 94 L 04/25/20 07:57 Weight - Most Recent: 101.786 kg I&O - Last 24 Hours: Intake & Output 04/24/20 04/25/20 04/25/20 22:59 06:59 14:59 Intake Total 2220 1600 Output Total 1850 1200 Balance 370 400 Lab Results Last 24 Hours: Laboratory Results - last 24 hr 04/25/20 04/25/20 04/25/20 Range/Units 05:11 05:11 05:11 WBC 9.35 (3.98-10.04) K/mm3 RBC 4.51 (3.98-5.22) M/mm3 Hgb 12.6 (11.2-15.7) gm/dl Hct 39.3 (34.1-44.9) % MCV 87.1 (79.4-94.8) fl MCH 27.9 (25.6-32.2) pg MCHC 32.1 L (32.2-35.5) g/dl RDW Std Deviation 42.8 (36.4-46.3) fL Plt Count 348 (182-369) K/mm3 MPV 10.7 (9.4-12.3) fl Neut % (Auto) 77.4 H (34.0-71.1) % Lymph % (Auto) 15.8 L (19.3-51.7) % [place] % (Auto) 6.2 (4.7-12.5) % Eos % (Auto) 0 L (0.7-5.8) Baso % (Auto) 0.1 (0.1-1.2) % Neut # (Auto) 7.23 H (1.56-6.13) K/mm3 Lymph # (Auto) 1.48 (1.18-3.74) K/mm3 [place] # (Auto) 0.58 H (0.24-0.36) K/mm3 Eos # (Auto) 0.00 L (0.04-0.36) K/mm3 Baso # (Auto) 0.01 (0.01-0.08) K/mm3 D-Dimer, Quantitative 0.27 (0.19-0.50) mg/L Sodium 140 (136-145) mEq/L Potassium 4.1 (3.5-5.1) mEq/L Chloride 104 (98-107) mEq/L Carbon Dioxide 25 (21-32) mEq/L Anion Gap 15.1 H (5-15) BUN 15 (7-18) mg/dL Creatinine 0.9 (0.55-1.02) mg/dL Est Cr Clr Drug Dosing 51.26 mL/min Estimated GFR (MDRD) > 60 (>60) mL/min BUN/Creatinine Ratio 16.7 (14-18) Glucose 147 H (80-115) mg/dL Calcium 8.8 (8.5-10.1) mg/dL Phosphorus 2.7 (2.6-4.7) mg/dL Magnesium 2.0 (1.8-2.4) mg/dl Total Bilirubin 0.2 (0.2-1.0) mg/dL AST 23 (15-37) U/L ALT 50 (14-59) U/L Alkaline Phosphatase 78 (46-116) U/L C-Reactive Protein 3.4 H* (<1.0) mg/dL Total Protein 7.1 (6.4-8.2) g/dl Albumin 3.3 L (3.4-5.0) g/dl Globulin 3.8 gm/dL Albumin/Globulin Ratio 0.9 L (1-2) Med Orders - Current: Current Medications Acetaminophen (Tylenol) 650 mg PO Q4H PRN PRN Reason: Pain (Mild 1-3)/fever Albuterol (Proventil Hfa) 0 gm INH Q4H PRN PRN Reason: Shortness of Breath Amlodipine Besylate (Norvasc) 10 mg PO BEDTIME PENDING SALE TO [facility] Last Admin: 04/24/20 21:23 Dose: 10 mg Documented by: Aspirin (Halfprin) 81 mg PO DAILY PENDING SALE TO [facility] Last Admin: 04/25/20 09:39 Dose: 81 mg Documented by: Calcium Carbonate/Glycine (Tums) 1,000 mg PO Q2HR PRN PRN Reason: Indigestion Dexamethasone (Dexamethasone) 6 mg PO DAILY PENDING SALE TO [facility] Stop: 05/02/20 09:01 Last Admin: 04/25/20 09:38 Dose: 6 mg Documented by: Enoxaparin Sodium (Lovenox) 40 mg SUBCUT DAILY PENDING SALE TO [facility] Last Admin: 04/25/20 09:39 Dose: 40 mg Documented by: Fluticasone Propionate (Flonase) 0 gm NASBOTH DAILY PENDING SALE TO [facility] Last Admin: 04/25/20 09:39 Dose: 1 spray Documented by: Glycopyrrolate (Seebri Neohaler) 15.6 mcg IH BIDRT PENDING SALE TO [facility] Last Admin: 04/25/20 05:36 Dose: 1 cap Documented by: Hydrochlorothiazide (Hydrochlorothiazide) 25 mg PO DAILY PENDING SALE TO [facility] Last Admin: 04/25/20 09:39 Dose: 25 mg Documented by: Remdesivir 100 mg/ Sodium (Chloride) 100 mls @ 100 mls/hr IV Q24H PENDING SALE TO [facility] Stop: 04/27/20 21:59 Last Admin: 04/24/20 21:24 Dose: 100 mls/hr Documented by: Lorazepam (Ativan) 0.5 mg PO Q6H PRN PRN Reason: Anxiety Melatonin (Melatonin) 9 mg PO BEDTIME PRN PRN Reason: Insomnia Mometasone Furoate/Formoterol Fumar (Dulera 200-5 Mcg) 2 puff IH BIDRT PENDING SALE TO [facility] Last Admin: 04/25/20 05:36 Dose: 2 puff Documented by: Azelastine Hcl Nasal ([place]tom) 2 spray .XX BEDTIME PENDING SALE TO [facility] Last Admin: 04/24/20 21:00 Dose: Not Given Documented by: Ondansetron HCl (Zofran) 4 mg IV Q4H PRN PRN Reason: Nausea/Vomiting Sertraline HCl (Zoloft) 100 mg PO BEDTIME PENDING SALE TO [facility] Last Admin: 04/24/20 21:24 Dose: 100 mg Documented by: Sodium Chloride (Saline Flush) 10 ml FLUSH ASDIRECTED PRN PRN Reason: Keep Vein Open Last Admin: 04/23/20 15:33 Dose: 10 ml Documented by: Discontinued Medications Amlodipine Besylate (Norvasc) 10 mg PO BEDTIME PENDING SALE TO [facility] Last Admin: 04/23/20 22:04 Dose: 10 mg Documented by: Dexamethasone (Dexamethasone) 6 mg IVPUSH ONETIME ONE Stop: 04/23/20 16:38 Last Admin: 04/23/20 16:44 Dose: 6 mg Documented by: Hydrochlorothiazide (Hydrochlorothiazide) 25 mg PO BEDTIME PENDING SALE TO [facility] Last Admin: 04/24/20 21:23 Dose: Not Given Documented by: Sodium Chloride (Normal Saline) 1,000 mls @ 1,000 mls/hr IV .BOLUS PENDING SALE TO [facility] Last Admin: 04/23/20 15:33 Dose: 1,000 mls/hr Documented by: Remdesivir 200 mg/ Sodium (Chloride) 250 mls @ 250 mls/hr IV ONETIME ONE Stop: 04/23/20 21:59 Last Admin: 04/23/20 22:07 Dose: 250 mls/hr Documented by: Sodium Chloride (Normal Saline) Confirm Administered Dose 250 mls @ as directed .ROUTE .STK-MED ONE Stop: 04/23/20 23:17 Last Admin: 04/24/20 00:32 Dose: Not Given Documented by: Potassium Chloride (Klor-Con M20) 40 meq PO ONETIME ONE Stop: 04/23/20 22:46 Last Admin: 04/23/20 22:49 Dose: 40 meq Documented by: Potassium Chloride (Klor-Con M20) 40 meq PO Q4H [facility] Stop: 04/24/20 15:31 Last Admin: 04/24/20 15:50 Dose: 40 meq Documented by: - Exam Quality Assessment: DVT Prophylaxis (Lovenox). No: Supplemental Oxygen General: Alert, Oriented, Cooperative, No Acute Distress HEENT: Pupils Equal, Pupils Reactive, Mucous Membr. Moist/[place] Neck: Supple, Trachea Midline. No: Lymphadenopathy Lungs: Clear to Auscultation, Normal Respiratory Effort Cardiovascular: Regular Rate, Regular Rhythm, No Murmurs GI/Abdominal Exam: Normal Bowel Sounds, Soft, Non-Tender, No Distention (Female) Exam: Deferred Back Exam: Normal Inspection, Full Range of Motion Extremities: Normal Inspection, Normal Range of Motion, Non-Tender, No Pedal Edema, Normal Capillary Refill Peripheral Pulses: 2+: Radial (L), Radial (R), Dorsalis Pedis (L), Dorsalis Pedis (R) Skin: Warm, Dry, Intact Neurological: No New Focal Deficit Psy/Mental Status: Alert, Normal Affect, Normal Mood Sepsis Event Note - Evaluation Sepsis Screening Result: No Definite Risk - Focused Exam Vital Signs: Vital Signs Temp Pulse Resp BP Pulse Ox Pulse Ox 04/25/20 07:57 98.6 F 61 16 120/84 94 L 04/25/20 07:38 92 L 04/25/20 05:54 98.1 F 60 18 125/69 93 L 04/25/20 05:37 94 L - Problem List & Annotations (1) Asthma SNOMED Code(s): 558146839 Code(s): J45.909 - UNSPECIFIED ASTHMA, UNCOMPLICATED Status: Acute Priority: High Current Visit: Yes (2) COVID-19 SNOMED Code(s): 177025759 Code(s): U07.1 - COVID-19 Status: Acute Priority: High Current Visit: Yes (3) Hypoxia SNOMED Code(s): 900502835 Code(s): R09.02 - HYPOXEMIA Status: Acute Priority: High Current Visit: Yes (4) Pneumonia due to COVID-19 virus SNOMED Code(s): 940958129984882400 Code(s): U07.1 - COVID-19; J12.89 - OTHER VIRAL PNEUMONIA Status: Acute Priority: High Current Visit: Yes - Problem List Review Problem List Initiated/Reviewed/Updated: Yes - My Orders Last 24 Hours: My Active Orders 04/25/20 10:27 Calcium Carbonate [Tums] 1,000 mg PO Q2HR PRN Melatonin 9 mg PO BEDTIME PRN 04/26/20 05:11 C-REACTIVE PROTEIN [CHEM] DAILY COMPREHENSIVE METABOLIC PN,CMP [CHEM] DAILY D-DIMER QUANTITATIVE [COAG] DAILY MAGNESIUM [CHEM] DAILY PHOSPHORUS [CHEM] DAILY 04/26/20 08:45 CBC WITH AUTO DIFF [HEME] DAILY 04/27/20 05:11 C-REACTIVE PROTEIN [CHEM] DAILY COMPREHENSIVE METABOLIC PN,CMP [CHEM] DAILY D-DIMER QUANTITATIVE [COAG] DAILY MAGNESIUM [CHEM] DAILY PHOSPHORUS [CHEM] DAILY 04/27/20 08:45 CBC WITH AUTO DIFF [HEME] DAILY 04/28/20 05:11 C-REACTIVE PROTEIN [CHEM] DAILY COMPREHENSIVE METABOLIC PN,CMP [CHEM] DAILY D-DIMER QUANTITATIVE [COAG] DAILY MAGNESIUM [CHEM] DAILY PHOSPHORUS [CHEM] DAILY 04/28/20 08:45 CBC WITH AUTO DIFF [HEME] DAILY 04/29/20 05:11 C-REACTIVE PROTEIN [CHEM] DAILY COMPREHENSIVE METABOLIC PN,CMP [CHEM] DAILY D-DIMER QUANTITATIVE [COAG] DAILY MAGNESIUM [CHEM] DAILY PHOSPHORUS [CHEM] DAILY 04/29/20 08:45 CBC WITH AUTO DIFF [HEME] DAILY - Assessment Assessment:: Assessment 60-year-old female with asthma, hypertension, and morbid obesity presents with worsening COVID-19 symptoms and hypoxemia. Chest x-ray consistent with mild pneumonia. She requires 2 L of oxygen per minute via nasal cannula to keep oxygen saturations in the mid 90s. Hypokalemia 04/24/20 * Patient has received 2 units of convalescent plasma * Day 2 of remdesivir and dexamethasone. * Incentive spirometer and Acapella every hour while awake. * Respiratory therapy to titrate oxygen. * Lab work reveals: D-dimer 0.50 down from 0.56, potassium 3.3 which is up from 3.0, phosphorus 2.4, magnesium 1.9, C-reactive protein 6.0 which is down from 5.3. * Albuterol HFA as needed for shortness of breath and/or wheezing. 04/25/20 * Day 3 of remdesivir and dexamethasone * Patient is on room air * Incentive spirometer and Acapella every hour while awake * Up independently in her room. * Albuterol HFA as needed for shortness of breath and/or wheezing * States she was actually able to sleep last night however would like some melatonin tonight. * States she did have some heartburn yesterday due to eating onions on her burger that she was not able to taste. - Plan Plan:: Assessment 60-year-old female with asthma, hypertension, and morbid obesity presents with worsening COVID-19 symptoms and hypoxemia. Chest x-ray consistent with mild pneumonia. She requires 2 L of oxygen per minute via nasal cannula to keep oxygen saturations in the mid 90s. Hypokalemia Plan * Admit to medical floor on telemetry and continuous pulse oximetry * Start remdesivir, dexamethasone (given in ER), and convalescent plasma * I spoke with Suzanne Lu to provide information about convalescent plasma. I offered the "fax sheet for patients and parents/caregivers, for COVID-19 convalescent plasma to read and review. I stated that therapy has been approved by an emergency use authorization process and has not fully been FDA reviewed or approved. I shared potential risks from the therapy including transmission of blood borne pathogen such as HIV and hepatitis C, allergic and transfusion related reactions, post transfusion purpura. Additionally theoretical risks include a phenomenon called antibodydependent enhancement of infection such as is seen in dengue or attenuation of an immune response that may make patients more susceptible to reinfection. * FiO2 to keep SPO2 between 88 and 94%. * Incentive spirometer and Acapella * RT to consult and treat * VTE prophylaxis with Lovenox. Patient will be started on Lovenox 40 mg every 12 hours secondary to her obesity. * Aspirin 81 mg daily * Potassium 40 mEq p.o. x1 * Repeat lab work in the morning * Continue home medications for asthma and hypertension * No antibiotics at this time. * Encourage good nutrition high-protein intake. * CODE STATUS: Full code 04/24/20 * Continue remdesivir and dexamethasone. * Respiratory therapy to continue titrating oxygen. * Continue incentive spirometer and Acapella. * Lovenox for DVT prophylaxis * Potassium 40 mEq every 4 hours x 2 doses today. * Repeat labs in the morning. * Patient is a full code. * Patient will be here for at least 5 days due to the treatment for Covid. 04/25/20 * Continue remdesivir and dexamethasone * Continue incentive spirometer and Acapella * Lovenox for DVT prophylaxis * Melatonin as needed at bedtime * Tums as needed for heartburn * Will repeat lab work in the morning. * Plan for discharge Thursday morning once patient has completed her full course of remdesivir. <Sugar Snow - Last Filed: 04/26/20 16:33> - Patient Data Vitals - Most Recent: Last Vital Signs Temp 36.8 C 04/26/20 15:15 Pulse 57 L 04/26/20 15:15 Resp 16 04/26/20 15:15 BP 142/93 H 04/26/20 15:15 Pulse Ox 95 04/26/20 15:15 I&O - Last 24 Hours: Intake & Output 04/26/20 04/26/20 04/26/20 06:59 14:59 22:59 Intake Total 1100 1300 Output Total 1250 1300 Balance -150 0 Lab Results Last 24 Hours: Laboratory Results - last 24 hr 04/26/20 04/26/20 04/26/20 Range/Units 05:50 05:50 05:50 WBC 9.01 (3.98-10.04) K/mm3 RBC 4.42 (3.98-5.22) M/mm3 Hgb 12.5 (11.2-15.7) gm/dl Hct 38.5 (34.1-44.9) % MCV 87.1 (79.4-94.8) fl MCH 28.3 (25.6-32.2) pg MCHC 32.5 (32.2-35.5) g/dl RDW Std Deviation 43.1 (36.4-46.3) fL Plt Count 363 (182-369) K/mm3 MPV 10.3 (9.4-12.3) fl Neut % (Auto) 67.0 (34.0-71.1) % Lymph % (Auto) 22.5 (19.3-51.7) % [place] % (Auto) 8.4 (4.7-12.5) % Eos % (Auto) 0 L (0.7-5.8) Baso % (Auto) 0.2 (0.1-1.2) % Neut # (Auto) 6.03 (1.56-6.13) K/mm3 Lymph # (Auto) 2.03 (1.18-3.74) K/mm3 [place] # (Auto) 0.76 H (0.24-0.36) K/mm3 Eos # (Auto) 0.00 L (0.04-0.36) K/mm3 Baso # (Auto) 0.02 (0.01-0.08) K/mm3 Manual Slide Review Abnormal smear D-Dimer, Quantitative 0.25 (0.19-0.50) mg/L Sodium 140 (136-145) mEq/L Potassium 3.6 (3.5-5.1) mEq/L Chloride 103 (98-107) mEq/L Carbon Dioxide 27 (21-32) mEq/L Anion Gap 13.6 (5-15) BUN 15 (7-18) mg/dL Creatinine 0.8 (0.55-1.02) mg/dL Est Cr Clr Drug Dosing 57.67 mL/min Estimated GFR (MDRD) > 60 (>60) mL/min BUN/Creatinine Ratio 18.8 H (14-18) Glucose 117 H (80-115) mg/dL Calcium 8.6 (8.5-10.1) mg/dL Phosphorus 2.9 (2.6-4.7) mg/dL Magnesium 2.0 (1.8-2.4) mg/dl Total Bilirubin 0.3 (0.2-1.0) mg/dL AST 32 (15-37) U/L ALT 65 H (14-59) U/L Alkaline Phosphatase 71 (46-116) U/L C-Reactive Protein 2.0 H* (<1.0) mg/dL Total Protein 7.0 (6.4-8.2) g/dl Albumin 3.2 L (3.4-5.0) g/dl Globulin 3.8 gm/dL Albumin/Globulin Ratio 0.8 L (1-2) Med Orders - Current: Current Medications Acetaminophen (Tylenol) 650 mg PO Q4H PRN PRN Reason: Pain (Mild 1-3)/fever Albuterol (Proventil Hfa) 0 gm INH Q4H PRN PRN Reason: Shortness of Breath Amlodipine Besylate (Norvasc) 10 mg PO BEDTIME PENDING SALE TO [facility] Last Admin: 04/25/20 20:43 Dose: 10 mg Documented by: Aspirin (Halfprin) 81 mg PO DAILY PENDING SALE TO [facility] Last Admin: 04/26/20 08:50 Dose: 81 mg Documented by: Calcium Carbonate/Glycine (Tums) 1,000 mg PO Q2HR PRN PRN Reason: Indigestion Dexamethasone (Dexamethasone) 6 mg PO DAILY PENDING SALE TO [facility] Stop: 05/02/20 09:01 Last Admin: 04/26/20 08:49 Dose: 6 mg Documented by: Enoxaparin Sodium (Lovenox) 40 mg SUBCUT DAILY PENDING SALE TO [facility] Last Admin: 04/26/20 08:49 Dose: 40 mg Documented by: Fluticasone Propionate (Flonase) 0 gm NASBOTH DAILY PENDING SALE TO [facility] Last Admin: 04/26/20 08:50 Dose: 2 spray Documented by: Glycopyrrolate (Seebri Neohaler) 15.6 mcg IH BIDRT PENDING SALE TO [facility] Last Admin: 04/26/20 05:26 Dose: 1 cap Documented by: Hydrochlorothiazide (Hydrochlorothiazide) 25 mg PO DAILY PENDING SALE TO [facility] Last Admin: 04/26/20 08:50 Dose: 25 mg Documented by: Remdesivir 100 mg/ Sodium (Chloride) 100 mls @ 100 mls/hr IV Q24H PENDING SALE TO [facility] Stop: 04/27/20 21:59 Last Admin: 04/25/20 20:43 Dose: 100 mls/hr Documented by: Lorazepam (Ativan) 0.5 mg PO Q6H PRN PRN Reason: Anxiety Melatonin (Melatonin) 9 mg PO BEDTIME PRN PRN Reason: Insomnia Mometasone Furoate/Formoterol Fumar (Dulera 200-5 Mcg) 2 puff IH BIDRT PENDING SALE TO [facility] Last Admin: 04/26/20 05:26 Dose: 2 puff Documented by: Azelastine Hcl Nasal ([place]tom) 2 spray INH BEDTIME PENDING SALE TO [facility] Last Admin: 04/25/20 21:04 Dose: 2 spray Documented by: Ondansetron HCl (Zofran) 4 mg IV Q4H PRN PRN Reason: Nausea/Vomiting Sertraline HCl (Zoloft) 100 mg PO BEDTIME PENDING SALE TO [facility] Last Admin: 04/25/20 20:43 Dose: 100 mg Documented by: Sodium Chloride (Saline Flush) 10 ml FLUSH ASDIRECTED PRN PRN Reason: Keep Vein Open Last Admin: 04/23/20 15:33 Dose: 10 ml Documented by: Discontinued Medications Amlodipine Besylate (Norvasc) 10 mg PO BEDTIME PENDING SALE TO [facility] Last Admin: 04/23/20 22:04 Dose: 10 mg Documented by: Dexamethasone (Dexamethasone) 6 mg IVPUSH ONETIME ONE Stop: 04/23/20 16:38 Last Admin: 04/23/20 16:44 Dose: 6 mg Documented by: Hydrochlorothiazide (Hydrochlorothiazide) 25 mg PO BEDTIME [facility] Last Admin: 04/24/20 21:23 Dose: Not Given Documented by: Sodium Chloride (Normal Saline) 1,000 mls @ 1,000 mls/hr IV .BOLUS [facility] Last Admin: 04/23/20 15:33 Dose: 1,000 mls/hr Documented by: Remdesivir 200 mg/ Sodium (Chloride) 250 mls @ 250 mls/hr IV ONETIME ONE Stop: 04/23/20 21:59 Last Admin: 04/23/20 22:07 Dose: 250 mls/hr Documented by: Sodium Chloride (Normal Saline) Confirm Administered Dose 250 mls @ as directed .ROUTE .STK-MED ONE Stop: 04/23/20 23:17 Last Admin: 04/24/20 00:32 Dose: Not Given Documented by: Azelastine Hcl Nasal ([place]tom) 2 spray .XX BEDTIME PENDING SALE TO [facility] Last Admin: 04/24/20 21:00 Dose: Not Given Documented by: Potassium Chloride (Klor-Con M20) 40 meq PO ONETIME ONE Stop: 04/23/20 22:46 Last Admin: 04/23/20 22:49 Dose: 40 meq Documented by: Potassium Chloride (Klor-Con M20) 40 meq PO Q4H [facility] Stop: 04/24/20 15:31 Last Admin: 04/24/20 15:50 Dose: 40 meq Documented by: Potassium Chloride (Klor-Con M20) 40 meq PO ONETIME ONE Stop: 04/26/20 12:37 Last Admin: 04/26/20 14:05 Dose: 40 meq Documented by: Sepsis Event Note - Focused Exam Vital Signs: Vital Signs Temp Pulse Resp BP Pulse Ox Pulse Ox 04/26/20 15:15 36.8 C 57 L 16 142/93 H 95 04/26/20 11:25 36.7 C 55 L 16 133/82 92 L 04/26/20 07:37 36.8 C 53 L 16 126/79 95 04/26/20 07:21 94 L 04/26/20 05:27 94 L 04/26/20 04:38 54 L 147/85 H 95 04/26/20 04:36 36.6 C 57 L 18 147/94 H 94 L - Plan Plan:: Covid-19 improving with standard treatment; agree with assessment and plan of care as amended.
[2020-04-25] MEDS: Sertraline 50 MG Tab PO SCH (20:43)
[2020-04-25] MEDS: amLODIPine 10 MG Tab PO SCH (20:43)
[2020-04-25] MEDS: REMDESIVIR (EUA) 100 MG in Sodium Chloride 0.9% 100 ML IV SCH (20:43)
[2020-04-25] MEDS: AZELASTINE HCL INH SCH (21:04)
[2020-04-26] MEDS: Glycopyrrolate 15.6 MCG Cap.W.Dev Kit of 6 IH SCH ×2 (05:26→20:04)
[2020-04-26] MEDS: Formoterol/Mometasone 200-5 MCG 8.8 GM Inhaler IH SCH ×2 (05:26→20:04)
[2020-04-26] MEDS: Dexamethasone 4 MG Tab PO SCH (08:49)
[2020-04-26] MEDS: Enoxaparin 40 MG/0.4 ML Syringe SUBCUT SCH (08:49)
[2020-04-26] MEDS: Fluticasone Propionate Nasal Spray 16 GM Bottle NASBOTH SCH (08:50)
[2020-04-26] MEDS: Aspirin 81 MG Tab.EC PO SCH (08:50)
[2020-04-26] MEDS: Hydrochlorothiazide 25 MG Tab PO SCH (08:50)
[2020-04-26] MEDS ORDERED: Potassium Chloride 20 MEQ Tab.ER PO ONE (12:36)
--- NOTE | 2020-04-26 12:43 | PCM.PN ---
<Halina Canales M - Last Filed: 04/26/20 12:37> - General Info Date of Service: 04/26/20 Admission Dx/Problem (Free Text): Admission Diagnosis/Problem Admission Diagnosis/Problem Hypoxia Subjective Update: Patient remains on room air. She states she is feeling well. Eating 100% of her meals. Functional Status: Reports: Pain Controlled, Tolerating Diet, Ambulating, Urinating, Incentive Spirometry - Review of Systems General: Reports: No Symptoms HEENT: Reports: No Symptoms Pulmonary: Reports: Cough. Denies: Shortness of Breath, Sputum, Wheezing Cardiovascular: Reports: No Symptoms Gastrointestinal: Reports: No Symptoms Genitourinary: Reports: No Symptoms Musculoskeletal: Reports: No Symptoms Skin: Reports: No Symptoms Neurological: Reports: No Symptoms Psychiatric: Reports: No Symptoms - Patient Data Vitals - Most Recent: Last Vital Signs Temp 98.2 F 04/26/20 07:37 Pulse 53 L 04/26/20 07:37 Resp 16 04/26/20 07:37 BP 126/79 04/26/20 07:37 Pulse Ox 95 04/26/20 07:37 Weight - Most Recent: 101.605 kg I&O - Last 24 Hours: Intake & Output 04/25/20 04/26/20 04/26/20 22:59 06:59 14:59 Intake Total 1600 1100 Output Total 1300 1250 Balance 300 -150 Lab Results Last 24 Hours: Laboratory Results - last 24 hr 04/26/20 04/26/20 04/26/20 Range/Units 05:50 05:50 05:50 WBC 9.01 (3.98-10.04) K/mm3 RBC 4.42 (3.98-5.22) M/mm3 Hgb 12.5 (11.2-15.7) gm/dl Hct 38.5 (34.1-44.9) % MCV 87.1 (79.4-94.8) fl MCH 28.3 (25.6-32.2) pg MCHC 32.5 (32.2-35.5) g/dl RDW Std Deviation 43.1 (36.4-46.3) fL Plt Count 363 (182-369) K/mm3 MPV 10.3 (9.4-12.3) fl Neut % (Auto) 67.0 (34.0-71.1) % Lymph % (Auto) 22.5 (19.3-51.7) % Russell % (Auto) 8.4 (4.7-12.5) % Eos % (Auto) 0 L (0.7-5.8) Baso % (Auto) 0.2 (0.1-1.2) % Neut # (Auto) 6.03 (1.56-6.13) K/mm3 Lymph # (Auto) 2.03 (1.18-3.74) K/mm3 Russell # (Auto) 0.76 H (0.24-0.36) K/mm3 Eos # (Auto) 0.00 L (0.04-0.36) K/mm3 Baso # (Auto) 0.02 (0.01-0.08) K/mm3 Manual Slide Review Abnormal smear D-Dimer, Quantitative 0.25 (0.19-0.50) mg/L Sodium 140 (136-145) mEq/L Potassium 3.6 (3.5-5.1) mEq/L Chloride 103 (98-107) mEq/L Carbon Dioxide 27 (21-32) mEq/L Anion Gap 13.6 (5-15) BUN 15 (7-18) mg/dL Creatinine 0.8 (0.55-1.02) mg/dL Est Cr Clr Drug Dosing 57.67 mL/min Estimated GFR (MDRD) > 60 (>60) mL/min BUN/Creatinine Ratio 18.8 H (14-18) Glucose 117 H (80-115) mg/dL Calcium 8.6 (8.5-10.1) mg/dL Phosphorus 2.9 (2.6-4.7) mg/dL Magnesium 2.0 (1.8-2.4) mg/dl Total Bilirubin 0.3 (0.2-1.0) mg/dL AST 32 (15-37) U/L ALT 65 H (14-59) U/L Alkaline Phosphatase 71 (46-116) U/L C-Reactive Protein 2.0 H* (<1.0) mg/dL Total Protein 7.0 (6.4-8.2) g/dl Albumin 3.2 L (3.4-5.0) g/dl Globulin 3.8 gm/dL Albumin/Globulin Ratio 0.8 L (1-2) Med Orders - Current: Current Medications Acetaminophen (Tylenol) 650 mg PO Q4H PRN PRN Reason: Pain (Mild 1-3)/fever Albuterol (Proventil Hfa) 0 gm INH Q4H PRN PRN Reason: Shortness of Breath Amlodipine Besylate (Norvasc) 10 mg PO BEDTIME [facility] Last Admin: 04/25/20 20:43 Dose: 10 mg Documented by: Aspirin (Halfprin) 81 mg PO DAILY [facility] Last Admin: 04/26/20 08:50 Dose: 81 mg Documented by: Calcium Carbonate/Glycine (Tums) 1,000 mg PO Q2HR PRN PRN Reason: Indigestion Dexamethasone (Dexamethasone) 6 mg PO DAILY [facility] Stop: 05/02/20 09:01 Last Admin: 04/26/20 08:49 Dose: 6 mg Documented by: Enoxaparin Sodium (Lovenox) 40 mg SUBCUT DAILY [facility] Last Admin: 04/26/20 08:49 Dose: 40 mg Documented by: Fluticasone Propionate (Flonase) 0 gm NASBOTH DAILY [facility] Last Admin: 04/26/20 08:50 Dose: 2 spray Documented by: Glycopyrrolate (Seebri Neohaler) 15.6 mcg IH BIDRT [facility] Last Admin: 04/26/20 05:26 Dose: 1 cap Documented by: Hydrochlorothiazide (Hydrochlorothiazide) 25 mg PO DAILY [facility] Last Admin: 04/26/20 08:50 Dose: 25 mg Documented by: Remdesivir 100 mg/ Sodium (Chloride) 100 mls @ 100 mls/hr IV Q24H [facility] Stop: 04/27/20 21:59 Last Admin: 04/25/20 20:43 Dose: 100 mls/hr Documented by: Lorazepam (Ativan) 0.5 mg PO Q6H PRN PRN Reason: Anxiety Melatonin (Melatonin) 9 mg PO BEDTIME PRN PRN Reason: Insomnia Mometasone Furoate/Formoterol Fumar (Dulera 200-5 Mcg) 2 puff IH BIDRT [facility] Last Admin: 04/26/20 05:26 Dose: 2 puff Documented by: Azelastine Hcl Nasal ([place] Ptom) 2 spray INH BEDTIME [facility] Last Admin: 04/25/20 21:04 Dose: 2 spray Documented by: Ondansetron HCl (Zofran) 4 mg IV Q4H PRN PRN Reason: Nausea/Vomiting Sertraline HCl (Zoloft) 100 mg PO BEDTIME [facility] Last Admin: 04/25/20 20:43 Dose: 100 mg Documented by: Sodium Chloride (Saline Flush) 10 ml FLUSH ASDIRECTED PRN PRN Reason: Keep Vein Open Last Admin: 04/23/20 15:33 Dose: 10 ml Documented by: Discontinued Medications Amlodipine Besylate (Norvasc) 10 mg PO BEDTIME [facility] Last Admin: 04/23/20 22:04 Dose: 10 mg Documented by: Dexamethasone (Dexamethasone) 6 mg IVPUSH ONETIME ONE Stop: 04/23/20 16:38 Last Admin: 04/23/20 16:44 Dose: 6 mg Documented by: Hydrochlorothiazide (Hydrochlorothiazide) 25 mg PO BEDTIME [facility] Last Admin: 04/24/20 21:23 Dose: Not Given Documented by: Sodium Chloride (Normal Saline) 1,000 mls @ 1,000 mls/hr IV .BOLUS [facility] Last Admin: 04/23/20 15:33 Dose: 1,000 mls/hr Documented by: Remdesivir 200 mg/ Sodium (Chloride) 250 mls @ 250 mls/hr IV ONETIME ONE Stop: 04/23/20 21:59 Last Admin: 04/23/20 22:07 Dose: 250 mls/hr Documented by: Sodium Chloride (Normal Saline) Confirm Administered Dose 250 mls @ as directed .ROUTE .STK-MED ONE Stop: 04/23/20 23:17 Last Admin: 04/24/20 00:32 Dose: Not Given Documented by: Azelastine Hcl Nasal ([place] Ptom) 2 spray .XX BEDTIME [facility] Last Admin: 04/24/20 21:00 Dose: Not Given Documented by: Potassium Chloride (Klor-Con M20) 40 meq PO ONETIME ONE Stop: 04/23/20 22:46 Last Admin: 04/23/20 22:49 Dose: 40 meq Documented by: Potassium Chloride (Klor-Con M20) 40 meq PO Q4H [facility] Stop: 04/24/20 15:31 Last Admin: 04/24/20 15:50 Dose: 40 meq Documented by: Potassium Chloride (Klor-Con M20) 40 meq PO ONETIME ONE Stop: 04/26/20 12:37 - Exam Quality Assessment: DVT Prophylaxis (Lovenox). No: Supplemental Oxygen General: Alert, Oriented, Cooperative, No Acute Distress HEENT: Pupils Equal, Pupils Reactive, Mucous Membr. Moist/[place] Neck: Supple, Trachea Midline. No: Lymphadenopathy Lungs: Normal Respiratory Effort, Crackles (Left posterior lobe) Cardiovascular: Regular Rate, Regular Rhythm, No Murmurs GI/Abdominal Exam: Normal Bowel Sounds, Soft, Non-Tender, No Distention (Female) Exam: Deferred Back Exam: Normal Inspection, Full Range of Motion Extremities: Normal Inspection, Normal Range of Motion, Non-Tender, No Pedal Edema, Normal Capillary Refill Peripheral Pulses: 2+: Radial (L), Radial (R), Dorsalis Pedis (L), Dorsalis Pedis (R) Skin: Warm, Dry, Intact Neurological: No New Focal Deficit Psy/Mental Status: Alert, Normal Affect, Normal Mood Sepsis Event Note - Evaluation Sepsis Screening Result: No Definite Risk - Focused Exam Vital Signs: Vital Signs Temp Pulse Resp BP Pulse Ox Pulse Ox 04/26/20 07:37 98.2 F 53 L 16 126/79 95 04/26/20 07:21 94 L 04/26/20 05:27 94 L 04/26/20 04:38 54 L 147/85 H 95 04/26/20 04:36 97.9 F 57 L 18 147/94 H 94 L - Problem List & Annotations (1) Asthma SNOMED Code(s): 321019361 Code(s): J45.909 - UNSPECIFIED ASTHMA, UNCOMPLICATED Status: Acute Priority: High Current Visit: Yes (2) COVID-19 SNOMED Code(s): 111615739 Code(s): U07.1 - COVID-19 Status: Acute Priority: High Current Visit: Yes (3) Hypoxia SNOMED Code(s): 347482685 Code(s): R09.02 - HYPOXEMIA Status: Acute Priority: High Current Visit: Yes (4) Pneumonia due to COVID-19 virus SNOMED Code(s): 351513812724758950 Code(s): U07.1 - COVID-19; J12.89 - OTHER VIRAL PNEUMONIA Status: Acute Priority: High Current Visit: Yes - Problem List Review Problem List Initiated/Reviewed/Updated: Yes - My Orders Last 24 Hours: My Active Orders 04/27/20 05:11 C-REACTIVE PROTEIN [CHEM] DAILY COMPREHENSIVE METABOLIC PN,CMP [CHEM] DAILY D-DIMER QUANTITATIVE [COAG] DAILY MAGNESIUM [CHEM] DAILY PHOSPHORUS [CHEM] DAILY 04/27/20 08:45 CBC WITH AUTO DIFF [HEME] DAILY 04/28/20 05:11 C-REACTIVE PROTEIN [CHEM] DAILY COMPREHENSIVE METABOLIC PN,CMP [CHEM] DAILY D-DIMER QUANTITATIVE [COAG] DAILY MAGNESIUM [CHEM] DAILY PHOSPHORUS [CHEM] DAILY 04/28/20 08:45 CBC WITH AUTO DIFF [HEME] DAILY 04/29/20 05:11 C-REACTIVE PROTEIN [CHEM] DAILY COMPREHENSIVE METABOLIC PN,CMP [CHEM] DAILY D-DIMER QUANTITATIVE [COAG] DAILY MAGNESIUM [CHEM] DAILY PHOSPHORUS [CHEM] DAILY 04/29/20 08:45 CBC WITH AUTO DIFF [HEME] DAILY - Assessment Assessment:: Assessment 60-year-old female with asthma, hypertension, and morbid obesity presents with worsening COVID-19 symptoms and hypoxemia. Chest x-ray consistent with mild pneumonia. She requires 2 L of oxygen per minute via nasal cannula to keep oxygen saturations in the mid 90s. Hypokalemia 04/24/20 * Patient has received 2 units of convalescent plasma * Day 2 of remdesivir and dexamethasone. * Incentive spirometer and Acapella every hour while awake. * Respiratory therapy to titrate oxygen. * Lab work reveals: D-dimer 0.50 down from 0.56, potassium 3.3 which is up from 3.0, phosphorus 2.4, magnesium 1.9, C-reactive protein 6.0 which is down from 5.3. * Albuterol HFA as needed for shortness of breath and/or wheezing. 04/25/20 * Day 3 of remdesivir and dexamethasone * Patient is on room air * Incentive spirometer and Acapella every hour while awake * Up independently in her room. * Albuterol HFA as needed for shortness of breath and/or wheezing * States she was actually able to sleep last night however would like some melatonin tonight. * States she did have some heartburn yesterday due to eating onions on her burger that she was not able to taste. 04/26/20 * Day 4 of remdesivir and dexamethasone * Remains on room air * Is using her incentive spirometer and Acapella every hour * Is up and ambulating in her room independently * Denies any shortness of breath and cough is decreasing significantly. * Potassium level 3.6 today. - Plan Plan:: Assessment 60-year-old female with asthma, hypertension, and morbid obesity presents with worsening COVID-19 symptoms and hypoxemia. Chest x-ray consistent with mild pneumonia. She requires 2 L of oxygen per minute via nasal cannula to keep oxygen saturations in the mid 90s. Hypokalemia Plan * Admit to medical floor on telemetry and continuous pulse oximetry * Start remdesivir, dexamethasone (given in ER), and convalescent plasma * I spoke with Suzanne Lu to provide information about convalescent plasma. I offered the "fax sheet for patients and parents/caregivers, for COVID-19 convalescent plasma to read and review. I stated that therapy has been approved by an emergency use authorization process and has not fully been FDA reviewed or approved. I shared potential risks from the therapy including transmission of blood borne pathogen such as HIV and hepatitis C, allergic and transfusion related reactions, post transfusion purpura. Additionally theoretical risks include a phenomenon called antibodydependent enhancement of infection such as is seen in dengue or attenuation of an immune response that may make patients more susceptible to reinfection. * FiO2 to keep SPO2 between 88 and 94%. * Incentive spirometer and Acapella * RT to consult and treat * VTE prophylaxis with Lovenox. Patient will be started on Lovenox 40 mg every 12 hours secondary to her obesity. * Aspirin 81 mg daily * Potassium 40 mEq p.o. x1 * Repeat lab work in the morning * Continue home medications for asthma and hypertension * No antibiotics at this time. * Encourage good nutrition high-protein intake. * CODE STATUS: Full code 04/24/20 * Continue remdesivir and dexamethasone. * Respiratory therapy to continue titrating oxygen. * Continue incentive spirometer and Acapella. * Lovenox for DVT prophylaxis * Potassium 40 mEq every 4 hours x 2 doses today. * Repeat labs in the morning. * Patient is a full code. * Patient will be here for at least 5 days due to the treatment for Covid. 04/25/20 * Continue remdesivir and dexamethasone * Continue incentive spirometer and Acapella * Lovenox for DVT prophylaxis * Melatonin as needed at bedtime * Tums as needed for heartburn * Will repeat lab work in the morning. * Plan for discharge Thursday once patient has completed her full course of remdesivir. 04/26/20 * Lovenox for DVT prophylaxis * Continue remdesivir and dexamethasone * Continuous pulse oximetry to monitor O2 saturations * Incentive spirometer and Acapella at the bedside every 1 hour while awake * Continue to monitor vital signs * Tentative plan for discharge Thursday. * Potassium 40 mEq p.o. x1 dose <Sugar Snow M - Last Filed: 04/26/20 16:35> - Patient Data Vitals - Most Recent: Last Vital Signs Temp 36.8 C 04/26/20 15:15 Pulse 57 L 04/26/20 15:15 Resp 16 04/26/20 15:15 BP 142/93 H 04/26/20 15:15 Pulse Ox 95 04/26/20 15:15 I&O - Last 24 Hours: Intake & Output 04/26/20 04/26/20 04/26/20 06:59 14:59 22:59 Intake Total 1100 1300 Output Total 1250 1300 Balance -150 0 Lab Results Last 24 Hours: Laboratory Results - last 24 hr 04/26/20 04/26/20 04/26/20 Range/Units 05:50 05:50 05:50 WBC 9.01 (3.98-10.04) K/mm3 RBC 4.42 (3.98-5.22) M/mm3 Hgb 12.5 (11.2-15.7) gm/dl Hct 38.5 (34.1-44.9) % MCV 87.1 (79.4-94.8) fl MCH 28.3 (25.6-32.2) pg MCHC 32.5 (32.2-35.5) g/dl RDW Std Deviation 43.1 (36.4-46.3) fL Plt Count 363 (182-369) K/mm3 MPV 10.3 (9.4-12.3) fl Neut % (Auto) 67.0 (34.0-71.1) % Lymph % (Auto) 22.5 (19.3-51.7) % Russell % (Auto) 8.4 (4.7-12.5) % Eos % (Auto) 0 L (0.7-5.8) Baso % (Auto) 0.2 (0.1-1.2) % Neut # (Auto) 6.03 (1.56-6.13) K/mm3 Lymph # (Auto) 2.03 (1.18-3.74) K/mm3 Russell # (Auto) 0.76 H (0.24-0.36) K/mm3 Eos # (Auto) 0.00 L (0.04-0.36) K/mm3 Baso # (Auto) 0.02 (0.01-0.08) K/mm3 Manual Slide Review Abnormal smear D-Dimer, Quantitative 0.25 (0.19-0.50) mg/L Sodium 140 (136-145) mEq/L Potassium 3.6 (3.5-5.1) mEq/L Chloride 103 (98-107) mEq/L Carbon Dioxide 27 (21-32) mEq/L Anion Gap 13.6 (5-15) BUN 15 (7-18) mg/dL Creatinine 0.8 (0.55-1.02) mg/dL Est Cr Clr Drug Dosing 57.67 mL/min Estimated GFR (MDRD) > 60 (>60) mL/min BUN/Creatinine Ratio 18.8 H (14-18) Glucose 117 H (80-115) mg/dL Calcium 8.6 (8.5-10.1) mg/dL Phosphorus 2.9 (2.6-4.7) mg/dL Magnesium 2.0 (1.8-2.4) mg/dl Total Bilirubin 0.3 (0.2-1.0) mg/dL AST 32 (15-37) U/L ALT 65 H (14-59) U/L Alkaline Phosphatase 71 (46-116) U/L C-Reactive Protein 2.0 H* (<1.0) mg/dL Total Protein 7.0 (6.4-8.2) g/dl Albumin 3.2 L (3.4-5.0) g/dl Globulin 3.8 gm/dL Albumin/Globulin Ratio 0.8 L (1-2) Med Orders - Current: Current Medications Acetaminophen (Tylenol) 650 mg PO Q4H PRN PRN Reason: Pain (Mild 1-3)/fever Albuterol (Proventil Hfa) 0 gm INH Q4H PRN PRN Reason: Shortness of Breath Amlodipine Besylate (Norvasc) 10 mg PO BEDTIME [facility] Last Admin: 04/25/20 20:43 Dose: 10 mg Documented by: Aspirin (Halfprin) 81 mg PO DAILY [facility] Last Admin: 04/26/20 08:50 Dose: 81 mg Documented by: Calcium Carbonate/Glycine (Tums) 1,000 mg PO Q2HR PRN PRN Reason: Indigestion Dexamethasone (Dexamethasone) 6 mg PO DAILY [facility] Stop: 05/02/20 09:01 Last Admin: 04/26/20 08:49 Dose: 6 mg Documented by: Enoxaparin Sodium (Lovenox) 40 mg SUBCUT DAILY [facility] Last Admin: 04/26/20 08:49 Dose: 40 mg Documented by: Fluticasone Propionate (Flonase) 0 gm NASBOTH DAILY [facility] Last Admin: 04/26/20 08:50 Dose: 2 spray Documented by: Glycopyrrolate (Seebri Neohaler) 15.6 mcg IH BIDRT [facility] Last Admin: 04/26/20 05:26 Dose: 1 cap Documented by: Hydrochlorothiazide (Hydrochlorothiazide) 25 mg PO DAILY [facility] Last Admin: 04/26/20 08:50 Dose: 25 mg Documented by: Remdesivir 100 mg/ Sodium (Chloride) 100 mls @ 100 mls/hr IV Q24H [facility] Stop: 04/27/20 21:59 Last Admin: 04/25/20 20:43 Dose: 100 mls/hr Documented by: Lorazepam (Ativan) 0.5 mg PO Q6H PRN PRN Reason: Anxiety Melatonin (Melatonin) 9 mg PO BEDTIME PRN PRN Reason: Insomnia Mometasone Furoate/Formoterol Fumar (Dulera 200-5 Mcg) 2 puff IH BIDRT [facility] Last Admin: 04/26/20 05:26 Dose: 2 puff Documented by: Azelastine Hcl Nasal ([place] Ptom) 2 spray INH BEDTIME [facility] Last Admin: 04/25/20 21:04 Dose: 2 spray Documented by: Ondansetron HCl (Zofran) 4 mg IV Q4H PRN PRN Reason: Nausea/Vomiting Sertraline HCl (Zoloft) 100 mg PO BEDTIME [facility] Last Admin: 04/25/20 20:43 Dose: 100 mg Documented by: Sodium Chloride (Saline Flush) 10 ml FLUSH ASDIRECTED PRN PRN Reason: Keep Vein Open Last Admin: 04/23/20 15:33 Dose: 10 ml Documented by: Discontinued Medications Amlodipine Besylate (Norvasc) 10 mg PO BEDTIME [facility] Last Admin: 04/23/20 22:04 Dose: 10 mg Documented by: Dexamethasone (Dexamethasone) 6 mg IVPUSH ONETIME ONE Stop: 04/23/20 16:38 Last Admin: 04/23/20 16:44 Dose: 6 mg Documented by: Hydrochlorothiazide (Hydrochlorothiazide) 25 mg PO BEDTIME [facility] Last Admin: 04/24/20 21:23 Dose: Not Given Documented by: Sodium Chloride (Normal Saline) 1,000 mls @ 1,000 mls/hr IV .BOLUS [facility] Last Admin: 04/23/20 15:33 Dose: 1,000 mls/hr Documented by: Remdesivir 200 mg/ Sodium (Chloride) 250 mls @ 250 mls/hr IV ONETIME ONE Stop: 04/23/20 21:59 Last Admin: 04/23/20 22:07 Dose: 250 mls/hr Documented by: Sodium Chloride (Normal Saline) Confirm Administered Dose 250 mls @ as directed .ROUTE .STK-MED ONE Stop: 04/23/20 23:17 Last Admin: 04/24/20 00:32 Dose: Not Given Documented by: Azelastine Hcl Nasal ([place] Ptom) 2 spray .XX BEDTIME [facility] Last Admin: 04/24/20 21:00 Dose: Not Given Documented by: Potassium Chloride (Klor-Con M20) 40 meq PO ONETIME ONE Stop: 04/23/20 22:46 Last Admin: 04/23/20 22:49 Dose: 40 meq Documented by: Potassium Chloride (Klor-Con M20) 40 meq PO Q4H [facility] Stop: 04/24/20 15:31 Last Admin: 04/24/20 15:50 Dose: 40 meq Documented by: Potassium Chloride (Klor-Con M20) 40 meq PO ONETIME ONE Stop: 04/26/20 12:37 Last Admin: 04/26/20 14:05 Dose: 40 meq Documented by: Sepsis Event Note - Focused Exam Vital Signs: Vital Signs Temp Pulse Resp BP Pulse Ox Pulse Ox 11/05/20 15:15 36.8 C 57 L 16 142/93 H 95 04/26/20 11:25 36.7 C 55 L 16 133/82 92 L 04/26/20 07:37 36.8 C 53 L 16 126/79 95 04/26/20 07:21 94 L 04/26/20 05:27 94 L 04/26/20 04:38 54 L 147/85 H 95 04/26/20 04:36 36.6 C 57 L 18 147/94 H 94 L - Plan Plan:: Patient continues to improve; agree with assessment and plan of care as amended.
[2020-04-26] MEDS: Sertraline 50 MG Tab PO SCH (20:45)
[2020-04-26] MEDS: amLODIPine 10 MG Tab PO SCH (20:45)
[2020-04-26] MEDS: AZELASTINE HCL INH SCH (20:46)
[2020-04-26] MEDS: REMDESIVIR (EUA) 100 MG in Sodium Chloride 0.9% 100 ML IV SCH (20:46)
[2020-04-27] MEDS: Glycopyrrolate 15.6 MCG Cap.W.Dev Kit of 6 IH SCH ×2 (06:05→21:23)
[2020-04-27] MEDS: Formoterol/Mometasone 200-5 MCG 8.8 GM Inhaler IH SCH ×2 (06:05→21:22)
[2020-04-27] MEDS: Dexamethasone 4 MG Tab PO SCH (08:54)
[2020-04-27] MEDS: Enoxaparin 40 MG/0.4 ML Syringe SUBCUT SCH (08:55)
[2020-04-27] MEDS: Aspirin 81 MG Tab.EC PO SCH (08:55)
[2020-04-27] MEDS: Hydrochlorothiazide 25 MG Tab PO SCH (08:55)
[2020-04-27] MEDS: Fluticasone Propionate Nasal Spray 16 GM Bottle NASBOTH SCH (08:56)
--- NOTE | 2020-04-27 10:27 | PCM.PN ---
- General Info Date of Service: 04/27/20 Admission Dx/Problem (Free Text): Admission Diagnosis/Problem Admission Diagnosis/Problem Hypoxia Subjective Update: Patient states she feels well and is ready to go home tomorrow. She still is not able to taste or smell. Currently on room air. Functional Status: Reports: Pain Controlled, Tolerating Diet, Ambulating, Urinating, Incentive Spirometry - Review of Systems General: Reports: No Symptoms HEENT: Reports: No Symptoms Pulmonary: Reports: No Symptoms. Denies: Cough, Sputum Cardiovascular: Reports: No Symptoms Gastrointestinal: Reports: No Symptoms Genitourinary: Reports: No Symptoms Musculoskeletal: Reports: No Symptoms Skin: Reports: No Symptoms Neurological: Reports: No Symptoms Psychiatric: Reports: No Symptoms - Patient Data Vitals - Most Recent: Last Vital Signs Temp 97.5 F 04/27/20 08:04 Pulse 61 04/27/20 08:04 Resp 18 04/27/20 08:04 BP 141/69 H 04/27/20 08:04 Pulse Ox 92 L 04/27/20 08:04 Weight - Most Recent: 224 lb I&O - Last 24 Hours: Intake & Output 04/26/20 04/27/20 04/27/20 22:59 06:59 14:59 Intake Total 1480 600 Output Total 1300 900 Balance 180 -300 Lab Results Last 24 Hours: Laboratory Results - last 24 hr 04/27/20 04/27/20 04/27/20 Range/Units 04:25 04:25 04:25 WBC 10.10 H (3.98-10.04) K/mm3 RBC 4.71 (3.98-5.22) M/mm3 Hgb 13.3 (11.2-15.7) gm/dl Hct 41.1 (34.1-44.9) % MCV 87.3 (79.4-94.8) fl MCH 28.2 (25.6-32.2) pg MCHC 32.4 (32.2-35.5) g/dl RDW Std Deviation 43.2 (36.4-46.3) fL Plt Count 394 H (182-369) K/mm3 MPV 10.7 (9.4-12.3) fl Neut % (Auto) 69.9 (34.0-71.1) % Lymph % (Auto) 19.8 (19.3-51.7) % [place] % (Auto) 8.1 (4.7-12.5) % Eos % (Auto) 0 L (0.7-5.8) Baso % (Auto) 0.3 (0.1-1.2) % Neut # (Auto) 7.06 H (1.56-6.13) K/mm3 Lymph # (Auto) 2.00 (1.18-3.74) K/mm3 [place] # (Auto) 0.82 H (0.24-0.36) K/mm3 Eos # (Auto) 0.00 L (0.04-0.36) K/mm3 Baso # (Auto) 0.03 (0.01-0.08) K/mm3 Manual Slide Review Abnormal smear D-Dimer, Quantitative 0.24 (0.19-0.50) mg/L Sodium 139 (136-145) mEq/L Potassium 4.0 (3.5-5.1) mEq/L Chloride 99 (98-107) mEq/L Carbon Dioxide 28 (21-32) mEq/L Anion Gap 16.0 H (5-15) BUN 17 (7-18) mg/dL Creatinine 0.9 (0.55-1.02) mg/dL Est Cr Clr Drug Dosing 51.26 mL/min Estimated GFR (MDRD) > 60 (>60) mL/min BUN/Creatinine Ratio 18.9 H (14-18) Glucose 195 H (80-115) mg/dL Calcium 8.9 (8.5-10.1) mg/dL Phosphorus 3.0 (2.6-4.7) mg/dL Magnesium 2.0 (1.8-2.4) mg/dl Total Bilirubin 0.3 (0.2-1.0) mg/dL AST 48 H (15-37) U/L ALT 133 H (14-59) U/L Alkaline Phosphatase 79 (46-116) U/L C-Reactive Protein 1.4 H* (<1.0) mg/dL Total Protein 7.4 (6.4-8.2) g/dl Albumin 3.4 (3.4-5.0) g/dl Globulin 4.0 gm/dL Albumin/Globulin Ratio 0.9 L (1-2) Med Orders - Current: Current Medications Acetaminophen (Tylenol) 650 mg PO Q4H PRN PRN Reason: Pain (Mild 1-3)/fever Albuterol (Proventil Hfa) 0 gm INH Q4H PRN PRN Reason: Shortness of Breath Amlodipine Besylate (Norvasc) 10 mg PO BEDTIME [facility] Last Admin: 04/26/20 20:45 Dose: 10 mg Documented by: Aspirin (Halfprin) 81 mg PO DAILY [facility] Last Admin: 04/27/20 08:55 Dose: 81 mg Documented by: Calcium Carbonate/Glycine (Tums) 1,000 mg PO Q2HR PRN PRN Reason: Indigestion Last Admin: 04/26/20 20:45 Dose: 1,000 mg Documented by: Dexamethasone (Dexamethasone) 6 mg PO DAILY [facility] Stop: 05/02/20 09:01 Last Admin: 04/27/20 08:54 Dose: 6 mg Documented by: Enoxaparin Sodium (Lovenox) 40 mg SUBCUT DAILY [facility] Last Admin: 04/27/20 08:55 Dose: 40 mg Documented by: Fluticasone Propionate (Flonase) 0 gm NASBOTH DAILY [facility] Last Admin: 04/27/20 08:56 Dose: 2 spray Documented by: Glycopyrrolate (Seebri Neohaler) 15.6 mcg IH BIDRT [facility] Last Admin: 04/27/20 06:05 Dose: 1 cap Documented by: Hydrochlorothiazide (Hydrochlorothiazide) 25 mg PO DAILY [facility] Last Admin: 04/27/20 08:55 Dose: 25 mg Documented by: Remdesivir 100 mg/ Sodium (Chloride) 100 mls @ 100 mls/hr IV Q24H [facility] Stop: 04/27/20 21:59 Last Admin: 04/26/20 20:46 Dose: 100 mls/hr Documented by: Lorazepam (Ativan) 0.5 mg PO Q6H PRN PRN Reason: Anxiety Melatonin (Melatonin) 9 mg PO BEDTIME PRN PRN Reason: Insomnia Mometasone Furoate/Formoterol Fumar (Dulera 200-5 Mcg) 2 puff IH BIDRT [facility] Last Admin: 04/27/20 06:05 Dose: 2 puff Documented by: Azelastine Hcl Nasal ([place]) 2 spray INH BEDTIME [facility] Last Admin: 04/26/20 20:46 Dose: 2 spray Documented by: Ondansetron HCl (Zofran) 4 mg IV Q4H PRN PRN Reason: Nausea/Vomiting Sertraline HCl (Zoloft) 100 mg PO BEDTIME [facility] Last Admin: 04/26/20 20:45 Dose: 100 mg Documented by: Sodium Chloride (Saline Flush) 10 ml FLUSH ASDIRECTED PRN PRN Reason: Keep Vein Open Last Admin: 04/23/20 15:33 Dose: 10 ml Documented by: Discontinued Medications Amlodipine Besylate (Norvasc) 10 mg PO BEDTIME [facility] Last Admin: 04/23/20 22:04 Dose: 10 mg Documented by: Dexamethasone (Dexamethasone) 6 mg IVPUSH ONETIME ONE Stop: 04/23/20 16:38 Last Admin: 04/23/20 16:44 Dose: 6 mg Documented by: Hydrochlorothiazide (Hydrochlorothiazide) 25 mg PO BEDTIME [facility] Last Admin: 04/24/20 21:23 Dose: Not Given Documented by: Sodium Chloride (Normal Saline) 1,000 mls @ 1,000 mls/hr IV .BOLUS [facility] Last Admin: 04/23/20 15:33 Dose: 1,000 mls/hr Documented by: Remdesivir 200 mg/ Sodium (Chloride) 250 mls @ 250 mls/hr IV ONETIME ONE Stop: 04/23/20 21:59 Last Admin: 04/23/20 22:07 Dose: 250 mls/hr Documented by: Sodium Chloride (Normal Saline) Confirm Administered Dose 250 mls @ as directed .ROUTE .STK-MED ONE Stop: 04/23/20 23:17 Last Admin: 04/24/20 00:32 Dose: Not Given Documented by: Azelastine Hcl Nasal ([place]) 2 spray .XX BEDTIME [facility] Last Admin: 04/24/20 21:00 Dose: Not Given Documented by: Potassium Chloride (Klor-Con M20) 40 meq PO ONETIME ONE Stop: 04/23/20 22:46 Last Admin: 04/23/20 22:49 Dose: 40 meq Documented by: Potassium Chloride (Klor-Con M20) 40 meq PO Q4H [facility] Stop: 04/24/20 15:31 Last Admin: 04/24/20 15:50 Dose: 40 meq Documented by: Potassium Chloride (Klor-Con M20) 40 meq PO ONETIME ONE Stop: 04/26/20 12:37 Last Admin: 04/26/20 14:05 Dose: 40 meq Documented by: - Exam Quality Assessment: DVT Prophylaxis (Lovenox). No: Supplemental Oxygen (On room air.) General: Alert, Oriented, Cooperative, No Acute Distress HEENT: Pupils Equal, Pupils Reactive, Mucous Membr. Moist/[place] Neck: Supple, Trachea Midline. No: Lymphadenopathy Lungs: Clear to Auscultation, Normal Respiratory Effort Cardiovascular: Regular Rate, Regular Rhythm, No Murmurs GI/Abdominal Exam: Normal Bowel Sounds, Soft, Non-Tender, No Distention (Female) Exam: Deferred Back Exam: Normal Inspection, Full Range of Motion Extremities: Normal Inspection, Normal Range of Motion, Non-Tender, No Pedal Edema, Normal Capillary Refill Peripheral Pulses: 2+: Radial (L), Radial (R), Dorsalis Pedis (L), Dorsalis Pedis (R) Skin: Warm, Dry, Intact Neurological: No New Focal Deficit Psy/Mental Status: Alert, Normal Affect, Normal Mood Sepsis Event Note - Evaluation Sepsis Screening Result: No Definite Risk - Focused Exam Vital Signs: Vital Signs Temp Pulse Resp BP Pulse Ox Pulse Ox 04/27/20 08:04 97.5 F 61 18 141/69 H 92 L 04/27/20 07:37 91 L 04/27/20 06:06 91 L 04/27/20 04:54 98.2 F 52 L 18 146/91 H 95 - Problem List & Annotations (1) Asthma SNOMED Code(s): 043178416 Code(s): J45.909 - UNSPECIFIED ASTHMA, UNCOMPLICATED Status: Acute Priority: High Current Visit: Yes (2) COVID-19 SNOMED Code(s): 677502086 Code(s): U07.1 - COVID-19 Status: Acute Priority: High Current Visit: Yes (3) Hypoxia SNOMED Code(s): 195837372 Code(s): R09.02 - HYPOXEMIA Status: Acute Priority: High Current Visit: Yes (4) Pneumonia due to COVID-19 virus SNOMED Code(s): 407928114810567164 Code(s): U07.1 - COVID-19; J12.89 - OTHER VIRAL PNEUMONIA Status: Acute Priority: High Current Visit: Yes - Problem List Review Problem List Initiated/Reviewed/Updated: Yes - My Orders Last 24 Hours: My Active Orders 04/28/20 05:11 C-REACTIVE PROTEIN [CHEM] DAILY COMPREHENSIVE METABOLIC PN,CMP [CHEM] DAILY D-DIMER QUANTITATIVE [COAG] DAILY MAGNESIUM [CHEM] DAILY PHOSPHORUS [CHEM] DAILY 04/28/20 08:45 CBC WITH AUTO DIFF [HEME] DAILY 04/29/20 05:11 C-REACTIVE PROTEIN [CHEM] DAILY COMPREHENSIVE METABOLIC PN,CMP [CHEM] DAILY D-DIMER QUANTITATIVE [COAG] DAILY MAGNESIUM [CHEM] DAILY PHOSPHORUS [CHEM] DAILY 04/29/20 08:45 CBC WITH AUTO DIFF [HEME] DAILY - Assessment Assessment:: Assessment 60-year-old female with asthma, hypertension, and morbid obesity presents with worsening COVID-19 symptoms and hypoxemia. Chest x-ray consistent with mild pneumonia. She requires 2 L of oxygen per minute via nasal cannula to keep oxygen saturations in the mid 90s. Hypokalemia 04/24/20 * Patient has received 2 units of convalescent plasma * Day 2 of remdesivir and dexamethasone. * Incentive spirometer and Acapella every hour while awake. * Respiratory therapy to titrate oxygen. * Lab work reveals: D-dimer 0.50 down from 0.56, potassium 3.3 which is up from 3.0, phosphorus 2.4, magnesium 1.9, C-reactive protein 6.0 which is down from 5.3. * Albuterol HFA as needed for shortness of breath and/or wheezing. 04/25/20 * Day 3 of remdesivir and dexamethasone * Patient is on room air * Incentive spirometer and Acapella every hour while awake * Up independently in her room. * Albuterol HFA as needed for shortness of breath and/or wheezing * States she was actually able to sleep last night however would like some melatonin tonight. * States she did have some heartburn yesterday due to eating onions on her burger that she was not able to taste. 04/26/20 * Day 4 of remdesivir and dexamethasone * Remains on room air * Is using her incentive spirometer and Acapella every hour * Is up and ambulating in her room independently * Denies any shortness of breath and cough is decreasing significantly. * Potassium level 3.6 today. 04/27/20 * Day 5 of remdesivir and dexamethasone * Remains on room air * Up independently in her room * Incentive spirometer and Acapella every hour while awake patient is compliant with this * Labs are unremarkable today. - Plan Plan:: Patient continues to improve; agree with assessment and plan of care as amended. 04/27/20 * Repeat labs in the a.m. * Continue to monitor vital signs * Plan is for discharge to home tomorrow * Complete 10-day course of dexamethasone * Encourage incentive spirometry use once discharged to home.
[2020-04-27] MEDS: AZELASTINE HCL INH SCH (21:40)
[2020-04-27] MEDS: Sertraline 50 MG Tab PO SCH (21:41)
[2020-04-27] MEDS: amLODIPine 10 MG Tab PO SCH (21:41)
[2020-04-27] MEDS: REMDESIVIR (EUA) 100 MG in Sodium Chloride 0.9% 100 ML IV SCH (21:41)
[2020-04-28] MEDS: Glycopyrrolate 15.6 MCG Cap.W.Dev Kit of 6 IH SCH (06:58)
[2020-04-28] MEDS: Formoterol/Mometasone 200-5 MCG 8.8 GM Inhaler IH SCH (06:58)
[2020-04-28] MEDS: Hydrochlorothiazide 25 MG Tab PO SCH (08:46)
[2020-04-28] MEDS: Aspirin 81 MG Tab.EC PO SCH (08:46)
[2020-04-28] MEDS: Dexamethasone 4 MG Tab PO SCH (08:47)
[2020-04-28] MEDS: Fluticasone Propionate Nasal Spray 16 GM Bottle NASBOTH SCH (08:48)
[2020-04-28] MEDS: Enoxaparin 40 MG/0.4 ML Syringe SUBCUT SCH (08:48)
[2020-04-28 10:41] VITALS: BP 146/96; PULSE 59
--- NOTE | 2020-04-28 12:17 | PCM.DCSUM1 ---
Discharge Summary - Hospital Course Free Text/Narrative:: 60 year old female with astham as exposed to Covid-19 from her spouse. She developed more symptoms including fever/chills and more SOB.. The patient had a productive cough as well. She presented to [facility] ED and was hypoxic. She was subsequently admitted for Covid-19 PNA. ATBs/treatment approved for Covid-19 was completed, the last dose of Remdesivir was given last night. She will be DCd with a prescription to complete the full course of dexamethasone for 10 days, 10 had been completed. ASA will also be given as well as a prescription for Albuterol INH. Diagnosis: Stroke: No - Discharge Data Discharge Date: 04/28/20 Discharge Disposition: Home, Self-Care 01 Condition: Good - Referral to Home Health Primary Care Physician: Irina Rabago MD - Discharge Diagnosis/Problem(s) (1) Asthma SNOMED Code(s): 288586514 ICD Code: J45.909 - UNSPECIFIED ASTHMA, UNCOMPLICATED Status: Acute Priority: High (2) COVID-19 SNOMED Code(s): 080940361 ICD Code: U07.1 - COVID-19 Status: Acute Priority: High (3) Hypoxia SNOMED Code(s): 235416633 ICD Code: R09.02 - HYPOXEMIA Status: Acute Priority: High (4) Pneumonia due to COVID-19 virus SNOMED Code(s): 596227479606193760 ICD Code: U07.1 - COVID-19; J12.89 - OTHER VIRAL PNEUMONIA Status: Acute Priority: High (5) Dizziness SNOMED Code(s): 815098908 ICD Code: R42 - DIZZINESS AND GIDDINESS Status: Acute (6) Hypertension SNOMED Code(s): 48426250 ICD Code: I10 - ESSENTIAL (PRIMARY) HYPERTENSION Status: Acute - Patient Summary/Data Hospital Course: See above - Patient Instructions Diet: Usual Diet as Tolerated Activity: As Tolerated Driving: May Drive Today Showering/Bathing: May Shower Notify Provider of: Fever, Increased Pain, Nausea and/or Vomiting - Discharge Plan *PRESCRIPTION DRUG MONITORING PROGRAM REVIEWED*: No *COPY OF PRESCRIPTION DRUG MONITORING REPORT IN PATIENT RAND: No Prescriptions/Med Rec: dexAMETHasone [Dexamethasone] 6 mg PO DAILY #5 tablet Aspirin [Halfprin] 81 mg PO DAILY #100 tab.ec Albuterol [Proventil HFA] 2 puff INH Q4H PRN #1 inhaler PRN Reason: Shortness Of Breath Home Medications: Home Meds Sertraline [Zoloft] 100 mg PO BEDTIME 03/26/16 [History] Azelastine HCl 2 spray NASBOTH BEDTIME 04/23/20 [History] Fluticasone Propionate [Flonase] 2 spray NASBOTH DAILY 04/23/20 [History] Fluticasone/Vilanterol [Breo Ellipta 200-25 MCG Inhalation Kit] 1 puff INH BEDTIME 04/23/20 [History] LORazepam [Ativan] 0.5 mg PO Q6H PRN 04/23/20 [History] Tiotropium [place] [Spiriva Respimat] 2 puff INH DAILY 04/23/20 [History] amLODIPine [Norvasc] 10 mg PO BEDTIME 04/23/20 [History] hydroCHLOROthiazide [Hydrochlorothiazide] 25 mg PO BEDTIME 04/23/20 [History] Acetaminophen [Tylenol] 650 mg PO Q4H PRN #0 tablet 04/28/20 [Rx] Albuterol [Proventil HFA] 2 puff INH Q4H PRN #1 inhaler 04/28/20 [Rx] Aspirin [Halfprin] 81 mg PO DAILY #100 tab.ec 04/28/20 [Rx] Melatonin 9 mg PO BEDTIME PRN tablet 04/28/20 [Rx] dexAMETHasone [Dexamethasone] 6 mg PO DAILY #5 tablet 04/28/20 [Rx] Oxygen Therapy Mode: Room Air Patient Handouts: COVID-19 Frequently Asked Questions, COVID-19, Sepsis, Diagnosis, Adult, Prevent the Spread of COVID-19 if You Are Sick - CDC Forms: ED Department Discharge Referrals: Irina Rabago MD [Primary Care Provider] - (You will need to call and schedule an apt. in two weeks with Dr. Rabago. ) - Discharge Summary/Plan Comment DC Time >30 min.: No Discharge Summary/Plan Comment: Impression/Plan: --Covid-19 PNA --Asthma --O2 as needed --Remdesivir, Dexamethasone --Albuterol INH --DVT prophylaxis OP follow up in 2 weeks with PCP, Dr Smalls Social Distance >/= 6 feet; quarantine 7 more days. - General Info Date of Service: 04/23/20 Functional Status: Reports: Pain Controlled, Tolerating Diet, Ambulating, Urinating - Review of Systems General: Reports: No Symptoms HEENT: Reports: No Symptoms Pulmonary: Reports: No Symptoms Cardiovascular: Reports: No Symptoms Gastrointestinal: Reports: No Symptoms Genitourinary: Reports: No Symptoms Musculoskeletal: Reports: No Symptoms Skin: Reports: No Symptoms Neurological: Reports: No Symptoms Psychiatric: Reports: No Symptoms - Patient Data Vitals - Most Recent: Last Vital Signs Temp 36.8 C 04/28/20 08:44 Pulse 59 L 04/28/20 08:44 Resp 18 04/28/20 09:15 BP 146/96 H 04/28/20 08:44 Pulse Ox 93 L 04/28/20 08:44 Weight - Most Recent: 101.106 kg I&O - Last 24 hours: Intake & Output 04/27/20 04/28/20 04/28/20 22:59 06:59 14:59 Intake Total 1100 400 300 Balance 1100 400 300 Lab Results - Last 24 hrs: Laboratory Results - last 24 hr 04/28/20 04/28/20 04/28/20 Range/Units 06:50 06:50 06:50 WBC 12.13 H (3.98-10.04) K/mm3 RBC 4.75 (3.98-5.22) M/mm3 Hgb 13.6 (11.2-15.7) gm/dl Hct 40.5 (34.1-44.9) % MCV 85.3 (79.4-94.8) fl MCH 28.6 (25.6-32.2) pg MCHC 33.6 (32.2-35.5) g/dl RDW Std Deviation 41.0 (36.4-46.3) fL Plt Count 427 H (182-369) K/mm3 MPV 9.9 (9.4-12.3) fl Neut % (Auto) 64.8 (34.0-71.1) % Lymph % (Auto) 24.1 (19.3-51.7) % [place] % (Auto) 8.6 (4.7-12.5) % Eos % (Auto) 0.1 L (0.7-5.8) Baso % (Auto) 0.2 (0.1-1.2) % Neut # (Auto) 7.87 H (1.56-6.13) K/mm3 Lymph # (Auto) 2.92 (1.18-3.74) K/mm3 [place] # (Auto) 1.04 H (0.24-0.36) K/mm3 Eos # (Auto) 0.01 L (0.04-0.36) K/mm3 Baso # (Auto) 0.02 (0.01-0.08) K/mm3 Manual Slide Review Not Reportable D-Dimer, Quantitative 0.22 (0.19-0.50) mg/L Sodium 139 (136-145) mEq/L Potassium 4.0 (3.5-5.1) mEq/L Chloride 100 (98-107) mEq/L Carbon Dioxide 28 (21-32) mEq/L Anion Gap 15.0 (5-15) BUN 18 (7-18) mg/dL Creatinine 0.9 (0.55-1.02) mg/dL Est Cr Clr Drug Dosing 51.26 mL/min Estimated GFR (MDRD) > 60 (>60) mL/min BUN/Creatinine Ratio 20.0 H (14-18) Glucose 137 H (80-115) mg/dL Calcium 8.8 (8.5-10.1) mg/dL Phosphorus 3.2 (2.6-4.7) mg/dL Magnesium 2.2 (1.8-2.4) mg/dl Total Bilirubin 0.4 (0.2-1.0) mg/dL AST 53 H (15-37) U/L ALT 170 H (14-59) U/L Alkaline Phosphatase 77 (46-116) U/L C-Reactive Protein 0.8 (<1.0) mg/dL Total Protein 7.0 (6.4-8.2) g/dl Albumin 3.4 (3.4-5.0) g/dl Globulin 3.6 gm/dL Albumin/Globulin Ratio 0.9 L (1-2) Med Orders - Current: Current Medications Acetaminophen (Tylenol) 650 mg PO Q4H PRN PRN Reason: Pain (Mild 1-3)/fever Albuterol (Proventil Hfa) 0 gm INH Q4H PRN PRN Reason: Shortness of Breath Amlodipine Besylate (Norvasc) 10 mg PO BEDTIME [facility] Last Admin: 04/27/20 21:41 Dose: 10 mg Documented by: Aspirin (Halfprin) 81 mg PO DAILY [facility] Last Admin: 04/28/20 08:46 Dose: 81 mg Documented by: Calcium Carbonate/Glycine (Tums) 1,000 mg PO Q2HR PRN PRN Reason: Indigestion Last Admin: 04/26/20 20:45 Dose: 1,000 mg Documented by: Dexamethasone (Dexamethasone) 6 mg PO DAILY [facility] Stop: 05/02/20 09:01 Last Admin: 04/28/20 08:47 Dose: 6 mg Documented by: Enoxaparin Sodium (Lovenox) 40 mg SUBCUT DAILY [facility] Last Admin: 04/28/20 08:48 Dose: 40 mg Documented by: Fluticasone Propionate (Flonase) 0 gm NASBOTH DAILY [facility] Last Admin: 04/28/20 08:48 Dose: 2 spray Documented by: Glycopyrrolate (Seebri Neohaler) 15.6 mcg IH BIDRT [facility] Last Admin: 04/28/20 06:58 Dose: 1 cap Documented by: Hydrochlorothiazide (Hydrochlorothiazide) 25 mg PO DAILY [facility] Last Admin: 04/28/20 08:46 Dose: 25 mg Documented by: Lorazepam (Ativan) 0.5 mg PO Q6H PRN PRN Reason: Anxiety Melatonin (Melatonin) 9 mg PO BEDTIME PRN PRN Reason: Insomnia Mometasone Furoate/Formoterol Fumar (Dulera 200-5 Mcg) 2 puff IH BIDRT [facility] Last Admin: 04/28/20 06:58 Dose: 2 puff Documented by: Azelastine Hcl Nasal ([place] Ptom) 2 spray INH BEDTIME [facility] Last Admin: 04/27/20 21:40 Dose: 2 spray Documented by: Ondansetron HCl (Zofran) 4 mg IV Q4H PRN PRN Reason: Nausea/Vomiting Sertraline HCl (Zoloft) 100 mg PO BEDTIME [facility] Last Admin: 04/27/20 21:41 Dose: 100 mg Documented by: Sodium Chloride (Saline Flush) 10 ml FLUSH ASDIRECTED PRN PRN Reason: Keep Vein Open Last Admin: 04/23/20 15:33 Dose: 10 ml Documented by: Discontinued Medications Amlodipine Besylate (Norvasc) 10 mg PO BEDTIME [facility] Last Admin: 04/23/20 22:04 Dose: 10 mg Documented by: Dexamethasone (Dexamethasone) 6 mg IVPUSH ONETIME ONE Stop: 04/23/20 16:38 Last Admin: 04/23/20 16:44 Dose: 6 mg Documented by: Hydrochlorothiazide (Hydrochlorothiazide) 25 mg PO BEDTIME [facility] Last Admin: 04/24/20 21:23 Dose: Not Given Documented by: Sodium Chloride (Normal Saline) 1,000 mls @ 1,000 mls/hr IV .BOLUS [facility] Last Admin: 04/23/20 15:33 Dose: 1,000 mls/hr Documented by: Remdesivir 200 mg/ Sodium (Chloride) 250 mls @ 250 mls/hr IV ONETIME ONE Stop: 04/23/20 21:59 Last Admin: 04/23/20 22:07 Dose: 250 mls/hr Documented by: Remdesivir 100 mg/ Sodium (Chloride) 100 mls @ 100 mls/hr IV Q24H [facility] Stop: 04/27/20 21:59 Last Admin: 04/27/20 21:41 Dose: 100 mls/hr Documented by: Sodium Chloride (Normal Saline) Confirm Administered Dose 250 mls @ as directed .ROUTE .STK-MED ONE Stop: 04/23/20 23:17 Last Admin: 04/24/20 00:32 Dose: Not Given Documented by: Azelastine Hcl Nasal ([place] Ptom) 2 spray .XX BEDTIME [facility] Last Admin: 04/24/20 21:00 Dose: Not Given Documented by: Potassium Chloride (Klor-Con M20) 40 meq PO ONETIME ONE Stop: 04/23/20 22:46 Last Admin: 04/23/20 22:49 Dose: 40 meq Documented by: Potassium Chloride (Klor-Con M20) 40 meq PO Q4H [facility] Stop: 04/24/20 15:31 Last Admin: 04/24/20 15:50 Dose: 40 meq Documented by: Potassium Chloride (Klor-Con M20) 40 meq PO ONETIME ONE Stop: 04/26/20 12:37 Last Admin: 04/26/20 14:05 Dose: 40 meq Documented by: - Exam Quality Assessment: Reports: DVT Prophylaxis General: Reports: Alert, Oriented, Cooperative, No Acute Distress HEENT: Reports: Pupils Equal, Pupils Reactive, EOMI Neck: Reports: Trachea Midline, No JVD Lungs: Reports: Clear to Auscultation, Normal Respiratory Effort Cardiovascular: Reports: Regular Rate, Regular Rhythm GI/Abdominal Exam: Normal Bowel Sounds, Soft, Non-Tender, No Organomegaly, No Distention (Female) Exam: Deferred Rectal (Female) Exam: Deferred Back Exam: Reports: Normal Inspection Extremities: Normal Inspection, No Pedal Edema, Normal Capillary Refill Skin: Reports: Warm, Dry Neurological: Reports: No New Focal Deficit, Normal Gait, Normal Speech Psy/Mental Status: Reports: Alert, Normal Affect, Normal Mood
== END 2020-04-28 13:15 | disposition home or self-care (01) | DRG 177 ==
LOC: JD.ED 14:36 → JD.MS 17:36
PROVIDERS: ADMIT Family Medicine; ATTEND Family Medicine
PROC: XW033E5 Introduction of Remdesivir Anti-infective into Peripheral Vein, Percutaneous Approach, New Technology Group 5 (ICD-10-PCS; principal; 2020-04-23)
PROC: XW13325 Transfusion of Convalescent Plasma (Nonautologous) into Peripheral Vein, Percutaneous Approach, New Technology Group 5 (ICD-10-PCS; principal; 2020-04-23)
PROC: 8E0ZXY6 Isolation (ICD-10-PCS; principal; 2020-04-23)
DX: U07.1 COVID-19 (principal); J12.89 Other viral pneumonia; J45.909 Unspecified asthma, uncomplicated; I10 Essential (primary) hypertension; Z79.899 Other long term (current) drug therapy; Z79.82 Long term (current) use of aspirin; H54.7 Unspecified visual loss; F41.9 Anxiety disorder, unspecified; F32.9 Major depressive disorder, single episode, unspecified; E03.9 Hypothyroidism, unspecified; E66.01 Morbid (severe) obesity due to excess calories
CPT/HCPCS: 36415; 36430; 71045; 71045-26; 80053; 83605; 83735; 84100; 85025; 85379; 86140; 86900; 86901; 94640; 94667; 94668; 94760; 94761; 94762; A9270-GY; J1100; J1650; J7030; J7050; J8540; P9017

== ENCOUNTER 2020-11-12 19:09 | Inpatient (IN) | payer OTHER ==
[2020-11-12] MEDS ORDERED: diphenhydrAMINE 50 MG/ML SDV IVPUSH ONE (19:28)
[2020-11-12] MEDS ORDERED: Metoclopramide 10 MG/2 ML SDV IVPUSH ONE (19:28)
[2020-11-12] MEDS ORDERED: HYDROmorphone 1 MG/ML Syringe IVPUSH ONE (19:29)
[2020-11-12] MEDS ORDERED: Dextrose 5%-0.9% NaCl 1,000 ML IV SCH (19:30)
--- NOTE | 2020-11-12 19:30 | EDM.PDOC ---
ED HPI GENERAL MEDICAL PROBLEM - General Chief Complaint: ENT Problem Stated Complaint: PAIN FROM SINUS SURGERY Time Seen by Provider: 11/12/20 19:23 Source of Information: Reports: Patient History Limitations: Reports: No Limitations - History of Present Illness INITIAL COMMENTS - FREE TEXT/NARRATIVE: 60-year-old female presents to the ED for pain management. Patient underwent bilateral maxillary sinus surgery on Thursday, November 09. This was carried out in [place] at [facility]. She is aware of can persistent drainage down the back of her throat which did precipitate vomiting today. She is taking Tylenol for pain relief as the oxycodone is making her very nauseated. She is getting very minimal relief of the nausea with Zofran sublingual. Has a diffuse facial headache. She has eaten very poorly over the last 2 to 3 days and is dizzy and lightheaded upon standing. Feels generally weak. Onset: Gradual Onset Date: 11/09/20 Duration: Day(s): (Has not felt well since sinus surgery on Thursday last week.), Constant, Getting Worse (Getting weaker from not being able to eat.) Location: Reports: Face (Mid facial pain) Quality: Reports: Ache, Throbbing (From sinus surgery. Deep aching constant throbbing pain), Other Severity: Moderate (Pulsating at times 8-9 out of 10) Improves with: Reports: None Worsens with: Reports: Movement Context: Reports: Other. Denies: Activity, Exercise (Patient is worse with standing and walking.), Lifting, Sick Contact, Trauma Associated Symptoms: Reports: Cough (Mild cough to clear her throat.), Headaches, Loss of Appetite, Malaise, Nausea/Vomiting, Weakness. 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 Headache Pain Score (Numeric/FACES): 9 - Related Data Allergies Allergy/AdvReac Type Severity Reaction Status Date / Time No Known Allergies Allergy Verified 11/12/20 19:20 Home Meds: Home Meds Sertraline [Zoloft] 100 mg PO BEDTIME 03/26/16 [History] amLODIPine [Norvasc] 10 mg PO BEDTIME 04/23/20 [History] hydroCHLOROthiazide [Hydrochlorothiazide] 25 mg PO BEDTIME 04/23/20 [History] Acetaminophen [Tylenol] 650 mg PO Q4H PRN #0 tablet 04/28/20 [Rx] Albuterol [Proventil HFA] 2 puff INH Q4H PRN #1 inhaler 04/28/20 [Rx] Fluticasone/Vilanterol [Breo Ellipta 200-25 MCG Inhalation Kit] 1 dose INH DAILY 11/12/20 [History] HYDROmorphone [Dilaudid] 4 mg PO Q4H PRN #16 tablet 11/12/20 [Rx] Ondansetron [Zofran ODT] 4 mg SL ASDIRECTED PRN 11/12/20 [History] Ondansetron [Zofran] 4 mg BUCCAL Q6H PRN #12 tab 11/12/20 [Rx] Potassium Chloride [Klor-Con M20] 20 meq PO DAILY 11/12/20 [History] Rosuvastatin [Crestor] 10 mg PO BEDTIME 11/12/20 [History] oxyCODONE HCl [Oxycodone HCl] 5 mg PO ASDIRECTED PRN 11/12/20 [History] Past Medical History HEENT History: Reports: Allergic Rhinitis, Impaired Vision, Other (See Below) Other HEENT History: wears glasses Cardiovascular History: Reports: Heart Murmur, Hypertension Respiratory History: Reports: Asthma, Bronchitis, Recurrent, Other (See Below) Other Respiratory History: chronic cough Psychiatric History: Reports: Anxiety, Depression Endocrine/Metabolic History: Reports: Hypothyroidism - Infectious Disease History Infectious Disease History: Reports: Novel Coronavirus - Past Surgical History HEENT Surgical History: Reports: None Cardiovascular Surgical History: Reports: None Respiratory Surgical History: Reports: None Social & Family History - Family History Family Medical History: No Pertinent Family History Cardiac: Reports: Hypertension, Stent - Tobacco Use Tobacco Use Status *Q: Never Tobacco User Second Hand Smoke Exposure: No - Caffeine Use Caffeine Use: Reports: Coffee Caffeine Use Comment: 1 coffee per day - Recreational Drug Use Recreational Drug Use: No - Living Situation & Occupation Living situation: Reports: Occupation: Employed ED ROS ENT - Review of Systems Review Of Systems: See Below Constitutional: Reports: Malaise, Weakness, Fatigue, Decreased Appetite, Weight Loss. Denies: Fever, Chills HEENT: Reports: Glasses, Nose Pain, Sinus Problem (Just underwent bilateral maxillary sinus surgery 3 days ago. Has a severe facial pain and headache.) Respiratory: Reports: Other (History of asthma.). Denies: Shortness of Breath, Wheezing, Pleuritic Chest Pain Cardiovascular: Reports: Blood Pressure Problem, Dyspnea on Exertion. Denies: No Symptoms, Chest Pain, Claudication, Edema, Lightheadedness, Orthopnea Endocrine: Reports: Fatigue GI/Abdominal: Reports: Decreased Appetite, Nausea, Vomiting (Vomited once today.) : Reports: Other (Urine is dark in color.) Skin: Reports: No Symptoms Neurological: Reports: No Symptoms, Change in Speech Psychiatric: Reports: Anxiety, Depression Hematologic/Lymphatic: Reports: No Symptoms Immunologic: Reports: No Symptoms ED EXAM, ENT - Physical Exam Exam: See Below Exam Limited By: No Limitations General Appearance: Alert, WD/WN, Mild Distress, Other (Temperature is 36.4 though she feels slightly warmer than this on palpation. Heart rate was 72 and sinus respiratory is 18 with a pulse ox recorded only at 86%. It was double checked on her earlobe as well and she has a persistent low O2 saturation. Blo od pressure elevated 167/76.) Eye Exam: Bilateral Eye: Normal Inspection, PERRL Nose: Other (Cannot look at her nose as it is covered over by bandage with intranasal packs. She did not have a nasal septoplasty.) Mouth/Throat: Normal Gums, Normal Teeth, Pharyngeal Erythema (Mild from being dried out.), Other (With tenacious mucus on the posterior oropharynx but no sign of infection.). No: Normal Inspection Head: Atraumatic, Normocephalic, Other (Mild facial swelling infraorbitally bilaterally. Slightly worse on the right as compared to the left.) Neck: Normal Inspection, Supple, Non-Tender, Full Range of Motion. No: Carotid Bruit, Lymphadenopathy (L), Lymphadenopathy (R) Respiratory/Chest: No Respiratory Distress, Lungs Clear, Normal Breath Sounds, No Accessory Muscle Use Cardiovascular: Normal Peripheral Pulses, Regular Rate, Rhythm, No Edema, No Gallop, No Murmur, No Rub GI/Abdominal: Normal Bowel Sounds, Soft, Non-Tender, No Organomegaly, No Mass, Pelvis Stable, Other (Mildly obese.) Extremities: Normal Inspection, Normal Range of Motion, Non-Tender, No Pedal Edema, Other (No clinical signs of DVT in either lower extremity.) Neurological: Alert, Oriented, CN II-XII Intact, Normal Cognition, No Motor/Sensory Deficits Psychiatric: Normal Affect, Other (In a good deal of pain and she obviously does not feel well.) Skin: Warm, Dry, Intact, Normal Color, No Rash #1 Interpretation EKG Date: 11/12/20 Time: 20:25 Rhythm: NSR Rate (Beats/Min): 63 [place]: Normal P-Wave: Present QRS: Normal ST-T: Other (Diffuse flattening in multiple leads of the T wave. A diffuse repolarization abnormality) QT: Normal EKG Interpretation Comments: Borderline ECG Course - Vital Signs Last Recorded V/S: Last Vital Signs Temp 36.4 C 11/12/20 19:17 Pulse 72 11/12/20 19:17 Resp 18 11/12/20 19:17 BP 167/76 H 11/12/20 19:17 Pulse Ox 98 11/12/20 20:01 - Orders/Labs/Meds Orders: Active Orders 24 hr Category Date Time Status EKG Documentation Completion [RC] STAT Care 11/12/20 20:13 Active Oxygen Therapy, ED [RC] ASDIRECTED Care 11/12/20 20:01 Active Chest PE [Ang Chest] [CT] Stat Exams 11/12/20 21:03 Taken Dextrose 5%-0.9% NaCl [Dextrose 5%-Normal Saline] 1,000 Med 11/12/20 19:30 Active ml IV ASDIRECTED Medication Orders Dextrose/Sodium Chloride (Dextrose 5%-Normal Saline) 1,000 mls @ 999 mls/hr IV ASDIRECTED CORBY Last Admin: 11/12/20 19:56 Dose: 999 mls/hr Documented by: LAKESHA Labs: Laboratory Tests 11/12/20 11/12/20 11/12/20 Range/Units 19:45 19:45 19:45 WBC 15.98 H (3.98-10.04) K/mm3 RBC 4.42 (3.98-5.22) M/mm3 Hgb 12.5 (11.2-15.7) gm/dl Hct 37.9 (34.1-44.9) % MCV 85.7 (79.4-94.8) fl MCH 28.3 (25.6-32.2) pg MCHC 33.0 (32.2-35.5) g/dl RDW Std Deviation 43.6 (36.4-46.3) fL Plt Count 364 (182-369) K/mm3 MPV 9.7 (9.4-12.3) fl Neut % (Auto) 82.1 H (34.0-71.1) % Lymph % (Auto) 8.7 L (19.3-51.7) % [place] % (Auto) 7.6 (4.7-12.5) % Eos % (Auto) 0.3 L (0.7-5.8) Baso % (Auto) 0.2 (0.1-1.2) % Neut # (Auto) 13.12 H (1.56-6.13) K/mm3 Lymph # (Auto) 1.39 (1.18-3.74) K/mm3 [place] # (Auto) 1.22 H (0.24-0.36) K/mm3 Eos # (Auto) 0.05 (0.04-0.36) K/mm3 Baso # (Auto) 0.03 (0.01-0.08) K/mm3 Manual Slide Review Abnormal smear Puncture Site Lt radial ABG pH 7.42 (7.35-7.45) ABG pCO2 47.7 H (35.0-45.0) mmHg ABG pO2 41.0 L (80.0-100.0) mmHg ABG HCO3 30.3 H (22.0-26.0) meq/L ABG O2 Saturation 75.4 L (96.0-97.0) % ABG Base Excess 5.3 H (-2-2.0) Tramaine Test Positive A-a Gradient 49 mmHg O2 Delivery Device Room air FiO2 21.00 (21.00-100.00) % Sodium 138 (136-145) mEq/L Potassium 3.0 L (3.5-5.1) mEq/L Chloride 96 L (98-107) mEq/L Carbon Dioxide 32 (21-32) mEq/L Anion Gap 13.0 (5-15) BUN 11 (7-18) mg/dL Creatinine 0.8 (0.55-1.02) mg/dL Est Cr Clr Drug Dosing 57.67 mL/min Estimated GFR (MDRD) > 60 (>60) mL/min BUN/Creatinine Ratio 13.8 L (14-18) Glucose 111 H (70-99) mg/dL Calcium 8.9 (8.5-10.1) mg/dL Total Bilirubin 0.6 (0.2-1.0) mg/dL AST 19 (15-37) U/L ALT 37 (14-59) U/L Alkaline Phosphatase 69 (46-116) U/L CK-MB (CK-2) (0-3.6) ng/ml Troponin I (0.00-0.056) ng/mL C-Reactive Protein 11.9 H* (<1.0) mg/dL NT-Pro-B Natriuret Pep (0-125) pg/mL Total Protein 7.3 (6.4-8.2) g/dl Albumin 3.5 (3.4-5.0) g/dl Globulin 3.8 gm/dL Albumin/Globulin Ratio 0.9 L (1-2) 11/12/20 11/12/20 Range/Units 19:45 19:45 WBC (3.98-10.04) K/mm3 RBC (3.98-5.22) M/mm3 Hgb (11.2-15.7) gm/dl Hct (34.1-44.9) % MCV (79.4-94.8) fl MCH (25.6-32.2) pg MCHC (32.2-35.5) g/dl RDW Std Deviation (36.4-46.3) fL Plt Count (182-369) K/mm3 MPV (9.4-12.3) fl Neut % (Auto) (34.0-71.1) % Lymph % (Auto) (19.3-51.7) % [place] % (Auto) (4.7-12.5) % Eos % (Auto) (0.7-5.8) Baso % (Auto) (0.1-1.2) % Neut # (Auto) (1.56-6.13) K/mm3 Lymph # (Auto) (1.18-3.74) K/mm3 [place] # (Auto) (0.24-0.36) K/mm3 Eos # (Auto) (0.04-0.36) K/mm3 Baso # (Auto) (0.01-0.08) K/mm3 Manual Slide Review Puncture Site ABG pH (7.35-7.45) ABG pCO2 (35.0-45.0) mmHg ABG pO2 (80.0-100.0) mmHg ABG HCO3 (22.0-26.0) meq/L ABG O2 Saturation (96.0-97.0) % ABG Base Excess (-2-2.0) Tramaine Test A-a Gradient mmHg O2 Delivery Device FiO2 (21.00-100.00) % Sodium (136-145) mEq/L Potassium (3.5-5.1) mEq/L Chloride (98-107) mEq/L Carbon Dioxide (21-32) mEq/L Anion Gap (5-15) BUN (7-18) mg/dL Creatinine (0.55-1.02) mg/dL Est Cr Clr Drug Dosing mL/min Estimated GFR (MDRD) (>60) mL/min BUN/Creatinine Ratio (14-18) Glucose (70-99) mg/dL Calcium (8.5-10.1) mg/dL Total Bilirubin (0.2-1.0) mg/dL AST (15-37) U/L ALT (14-59) U/L Alkaline Phosphatase (46-116) U/L CK-MB (CK-2) 0.9 (0-3.6) ng/ml Troponin I < 0.017 (0.00-0.056) ng/mL C-Reactive Protein (<1.0) mg/dL NT-Pro-B Natriuret Pep 1033 H (0-125) pg/mL Total Protein (6.4-8.2) g/dl Albumin (3.4-5.0) g/dl Globulin gm/dL Albumin/Globulin Ratio (1-2) Meds: Medications Generic Name Dose Route Start Last Admin Trade Name Freq PRN Reason Stop Dose Admin Dextrose/Sodium Chloride 1,000 mls @ 999 mls/hr 11/12/20 19:30 11/12/20 19:56 Dextrose 5%-Normal Saline IV 999 mls/hr ASDIRECTED CORBY Administration Discontinued Medications Generic Name Dose Route Start Last Admin Trade Name Freq PRN Reason Stop Dose Admin Diphenhydramine HCl 25 mg 11/12/20 19:28 11/12/20 19:57 Diphenhydramine 50 Mg/Ml Sdv IVPUSH 11/12/20 19:29 25 mg ONETIME ONE Administration Furosemide 40 mg 11/12/20 20:42 11/12/20 20:53 Furosemide 40 Mg/4 Ml Vial IVPUSH 11/12/20 20:43 40 mg NOW ONE Administration Hydromorphone HCl 1 mg 11/12/20 19:29 11/12/20 19:57 Hydromorphone 1 Mg/Ml Syringe IVPUSH 11/12/20 19:30 0.5 mg ONETIME ONE Administration Metoclopramide HCl 7.5 mg 11/12/20 19:28 11/12/20 19:57 Metoclopramide 10 Mg/2 Ml Sdv IVPUSH 11/12/20 19:29 7.5 mg ONETIME ONE Administration - Radiology Interpretation Free Text/Narrative:: 60-year-old female presents to the ED primarily for pain management. She underwent bilateral maxillary sinus surgery by maxillofacial surgeon in [facility] on Thursday, November 09. She did not have a septoplasty performed. She has been able to only breathe through her mouth of course. I suspect her nose is packed bilaterally. It is covered over by a bandage. No drainage per nasal nares. She is aware of persistent postnasal drainage which did make her vomit today. Oxycodone that she is taking for pain relief is causing marked nausea. No relief with Zofran sublingual. She was told not to use anti- inflammatories. Other than oropharynx being very dry on examination she has a persistent low O2 sats of 85 to 86% both on her fingertip as well as her earlobe. She will therefore have ABGs done and a portable chest x-ray with some routine labs. Meantime she will receive IV D5 normal saline at open. Plan will be to give her Reglan 7.5 mg IV with Benadryl 25 mg IV for nausea relief and to prevent dystonic reaction as she is on antidepressant medication. Dilaudid 1 mg IV for pain relief. She gives no past history of DVT or PE. Covid screen will not be done since she has had recent sinus surgery and nasal surgery. She had a negative Covid screen done preop last week and she has had both of her vaccines for COVID-19 illness. - Re-Assessments/Exams Free Text/Narrative Re-Assessment/Exam: 11/12/20 19:58 Portable chest x-ray reveals a poor inspirational film. This makes it look like she has mild cardiomegaly. There is a diffuse vascular congestion pattern with no pleural effusion no pneumothorax. ABGs revealed a pH of 7.42 but PCO2 is elevated at 47.7. PO2 is 41. O2 sats are 75.4% on room air. Patient was placed on a mask as her nose is occluded with dressings or splints. Mask at 6 L prior up to 98%. Apparently she does have sleep apnea syndrome and uses CPAP at bedtime. 11/12/20 20:15 White blood cell count is elevated at 15.98. Differential is 82.1% neutrophils. Hemoglobin is 12.5 with hematocrit of 37.9 platelet count 364,000. Sodium is 138 potassium is low at 3.0. Chloride is 96. Bicarb is 32 with an anion gap of 13.0 BUN is 11 with a creatinine of 0.8 and a GFR greater than 60. Glucose 111. Calcium 8.9 . Liver function is normal. C-reactive protein is elevated at 11.9. Total protein 7.3 albumin fraction 3.5 11/12/20 20:40 O2 sats remained 97 to 98% with the mask on. Blood pressure is stable at 140/68. Patient feels better as far as nausea and facial pain/headache goes. BNP has returned elevated at 1033. Troponin is still pending. We will give her Lasix 40 mg IV since I just gave her a liter of IV fluid as she appeared to be dry clinically. 11/12/20 21:02 Troponin has returned at less than 0.017. CK-MB fraction is 0.9. Will therefore proceed with CT pulmonary angiogram to make sure there is no underlying PE to cause her low O2 sats. 11/12/20 22:22 Trial off of oxygen being administered by simple mask at 6 L/min failed miserably with O2 sats dropping to be between 84 [address] 85[address] pulmonary angiogram has been completed. It is a poor study in terms of contrast timing. No definitive evidence of pulmonary embolism identified. She does have bilateral pleural effusions slightly worse on the right as compared to the left. Awaiting radiologist report. It appears that she will require admission to the hospital. Because of new onset congestive heart failure is elusive. Possibly related to having COVID-19 illness in April last year with a myocarditis/cardiomyopathy post illness. 11/12/20 22:44 formal report from [facility] radiology is not available. The to agree that there is no evidence of pulmonary emboli. Aorta is unremarkable with no aortic dissection or aneurysm. There is consolidation and ground glass opacities in the posterior right upper lobe and posterior right and left lower lobes. Mild ground glass opacities in the right middle lobe as well. Small bilateral pleural effusions are present no pneumothorax. No cardiomegaly. Coronary arteries showed no calcified atherosclerosis. No pericardial effusion. Small hiatal hernia appreciated. No enlarged lymph nodes identified. Liver there is a diffuse decrease in hepatic parenchymal density consistent with fatty infiltration. There is focal fatty sparing in the liver parenchyma adjacent to the gallbladder fossa. Indeterminate level, mildly higher than water attenuation lesion in the right hepatic lobe measuring 2.6 x 2.1 cm on image 4. Mild mild bilateral hydronephrosis of the kidneys. Mild chronic degenerative changes of the thoracic spine. 11/12/20 22:[address] Christiano Cruz on-call hospitalist and clarified with him need for admission due to hypoxia which appears to be secondary to congestive heart failure. The cause of this is unclear. I wonder if she does not have a cardiomyopathy secondary to myocarditis from COVID-19 illness back April 23. She had a negative COVID-19 screen prior to her sinus surgery last week plus she has completed both of her COVID-19 vaccinations. Repeat Covid screen was not done today due to recent nasal surgery. I will start her on potassium intravenously on low-dose normal saline infusion. Plan will be to repeat Lasix 40 mg IV at 0600 hrs. tomorrow morning. I will write bridge orders for her to be admitted. Departure - Departure Time of Disposition: 22:55 Disposition: Admitted As Inpatient 64 Condition: Fair Clinical Impression: Hypoxia, Post-operative pain CHF (congestive heart failure) Qualifiers: Heart failure type: unspecified Heart failure chronicity: acute Qualified Code(s): I50.9 - Heart failure, unspecified Nausea and vomiting Qualifiers: Vomiting type: bilious vomiting Qualified Code(s): R11.14 - Bilious vomiting Adverse effects of medication Qualifiers: Encounter type: initial encounter Qualified Code(s): T50.905A - Adverse effect of unspecified drugs, medicaments and biological substances, initial encounter - Discharge Information *PRESCRIPTION DRUG MONITORING PROGRAM REVIEWED*: Not Applicable *COPY OF PRESCRIPTION DRUG MONITORING REPORT IN PATIENT RAND: Not Applicable Prescriptions: HYDROmorphone [Dilaudid] 4 mg PO Q4H PRN #16 tablet PRN Reason: Post op surgical pain Ondansetron [Zofran] 4 mg BUCCAL Q6H PRN #12 tab PRN Reason: nausea or vomiting Referrals: Irina Rabago MD [Primary Care Provider] - Forms: ED Department Discharge Sepsis Event Note (ED) - Evaluation Sepsis Screening Result: No Definite Risk - Focused Exam Vital Signs: Vital Signs Temp Pulse Resp BP Pulse Ox Pulse Ox 11/12/20 20:01 98 11/12/20 19:17 36.4 C 72 18 167/76 H 86 L - My Orders Last 24 Hours: My Active Orders 11/12/20 19:30 Dextrose 5%-0.9% NaCl [Dextrose 5%-Normal Saline] 1,000 ml IV ASDIRECTED 11/12/20 20:01 Oxygen Therapy, ED [RC] ASDIRECTED 11/12/20 20:13 EKG Documentation Completion [RC] STAT 11/12/20 21:03 Chest PE [Ang Chest] [CT] Stat - Assessment/Plan Last 24 Hours: My Active Orders 11/12/20 19:30 Dextrose 5%-0.9% NaCl [Dextrose 5%-Normal Saline] 1,000 ml IV ASDIRECTED 11/12/20 20:01 Oxygen Therapy, ED [RC] ASDIRECTED 11/12/20 20:13 EKG Documentation Completion [RC] STAT 11/12/20 21:03 Chest PE [Ang Chest] [CT] Stat
[2020-11-12] MEDS ORDERED: Furosemide 40 MG/4 ML VIAL IVPUSH ONE (20:42)
--- NOTE | 2020-11-12 21:48 | CR ---
Chest: Portable view of the chest was obtained. Comparison: No prior chest imaging is available. Heart size and mediastinum are felt to be within normal limits for portable technique. Lungs are clear with no acute parenchymal change. No acute osseous abnormality is appreciated. Impression: 1. Nothing acute is definitely appreciated on portable chest x-ray. 2. If patient remains symptomatic, recommend PA and lateral views to further evaluate. Diagnostic code #1
[2020-11-12] MEDS ORDERED: Sodium Chloride 0.9% 1,000 ML IV SCH (23:00)
[2020-11-12] MEDS: Potassium Chloride 10 MEQ in Premix Bag 1 BAG IV SCH (23:11)
[2020-11-13] MEDS ORDERED: Metoclopramide 10 MG/2 ML SDV IVPUSH PRN (00:26)
[2020-11-13] MEDS ORDERED: Sodium Chloride 0.9% 1,000 ML IV SCH (00:30)
[2020-11-13] MEDS: Potassium Chloride 10 MEQ in Premix Bag 1 BAG IV SCH ×4 (01:26→04:39)
[2020-11-13] MEDS: HYDROmorphone 1 MG/ML Syringe IVPUSH PRN ×3 (01:35→09:59)
[2020-11-13] MEDS ORDERED: Furosemide 20 MG/2 ML VIAL IVPUSH ONE (06:00)
--- NOTE | 2020-11-13 06:48 | PCM.HP.2 ---
H&P History of Present Illness - General Date of Service: 11/13/20 Admit Problem/Dx: Admission Diagnosis/Problem Admission Diagnosis/Problem Hypoxia Source of Information: Patient History Limitations: Reports: No Limitations - History of Present Illness Initial Comments - Free Text/Narative: The patient is a 60-year-old lady who had been recently discharged from [facility] for bilateral maxillary and ethmoid sinus surgery. The patient was discharged on November 09, 2020. The patient had presented to the emergency department primarily out of concern for pain control. The patient was noted to be very hypoxic in the emergency department and she also related shortness of breath. The patient has denied any fever or chills. She did have some nausea because the surgery had caused persistent drainage down the back of her throat. The patient also said that she was eating very poorly over the past 2 to 3 days. The patient's oxygen level on room air was at 86%. Onset of Symptoms: Reports: Gradual Duration of Symptoms: Reports: Day(s): Location: Reports: Chest Quality: Reports: Ache Severity: Mild Improves with: Reports: Rest Worsens with: Reports: Breathing Context: Reports: Other (Recent maxillary sinus surgery) Associated Symptoms: Reports: No Other Symptoms Headache Pain Score (Numeric/FACES): 5 - Related Data Allergies/Adverse Reactions: Allergies Allergy/AdvReac Type Severity Reaction Status Date / Time No Known Allergies Allergy Verified 11/12/20 19:20 Home Medications: Home Meds Sertraline [Zoloft] 100 mg PO BEDTIME 03/26/16 [History] amLODIPine [Norvasc] 10 mg PO BEDTIME 04/23/20 [History] hydroCHLOROthiazide [Hydrochlorothiazide] 25 mg PO DAILY 04/23/20 [History] Albuterol [Proventil HFA] 2 puff INH Q4H PRN #1 inhaler 04/28/20 [Rx] Fluticasone/Vilanterol [Breo Ellipta 200-25 MCG Inhalation Kit] 1 dose INH DAILY 11/12/20 [History] HYDROmorphone [Dilaudid] 4 mg PO Q4H PRN #16 tablet 11/12/20 [Rx] Ondansetron [Zofran ODT] 4 mg SL ASDIRECTED PRN 11/12/20 [History] Potassium Chloride [Klor-Con M20] 20 meq PO DAILY 11/12/20 [History] Rosuvastatin [Crestor] 10 mg PO BEDTIME 11/12/20 [History] oxyCODONE HCl [Oxycodone HCl] 5 mg PO ASDIRECTED PRN 11/12/20 [History] Acetaminophen [Tylenol Extra Strength] 2 cap PO Q6HR PRN 11/13/20 [History] Past Medical History HEENT History: Reports: Impaired Vision, Other (See Below) Other HEENT History: wears glasses Cardiovascular History: Reports: Heart Murmur, Hypertension Respiratory History: Reports: Asthma, Bronchitis, Recurrent, Other (See Below) Other Respiratory History: chronic cough, Covid Gastrointestinal History: Reports: None Genitourinary History: Reports: None Musculoskeletal History: Reports: None Neurological History: Reports: None Psychiatric History: Reports: Anxiety, Depression Endocrine/Metabolic History: Reports: Hypothyroidism Hematologic History: Reports: Blood Transfusion(s) - Infectious Disease History Infectious Disease History: Reports: Chicken Pox, Novel Coronavirus - Past Surgical History HEENT Surgical History: Reports: Naso-Sinus Surgery (11/09/2020) Cardiovascular Surgical History: Reports: None Respiratory Surgical History: Reports: None Social & Family History - Family History Family Medical History: No Pertinent Family History Cardiac: Reports: Hypertension, Stent - Tobacco Use Tobacco Use Status *Q: Never Tobacco User Second Hand Smoke Exposure: No - Caffeine Use Caffeine Use: Reports: Coffee Caffeine Use Comment: 1 cup daily - Recreational Drug Use Recreational Drug Use: No - Living Situation & Occupation Living situation: Reports: Occupation: Employed H&P Review of Systems - Review of Systems: Review Of Systems: See Below General: Reports: Weakness, Fatigue HEENT: Reports: Headaches, Post Nasal Drip, Sore Throat Pulmonary: Reports: Shortness of Breath Cardiovascular: Reports: No Symptoms Gastrointestinal: Reports: No Symptoms Genitourinary: Reports: No Symptoms Musculoskeletal: Reports: No Symptoms Skin: Reports: No Symptoms Psychiatric: Reports: No Symptoms Neurological: Reports: No Symptoms Hematologic/Lymphatic: Reports: No Symptoms Immunologic: Reports: No Symptoms Exam - Exam Exam: See Below - Vital Signs Vital Signs: Last Vital Signs Temp 36.8 C 11/13/20 03:42 Pulse 63 11/13/20 03:42 Resp 18 11/13/20 03:42 BP 136/72 11/13/20 03:42 Pulse Ox 93 L 11/13/20 03:42 Weight: 98.928 kg - Exam Quality Assessment: Supplemental Oxygen General: Alert, Oriented, Cooperative, Mild Distress HEENT: Conjunctiva Clear, Mucosa Moist & [place]. No: Nares Patent (Nasal packing present), Normal Nasal Septum Neck: Supple, Trachea Midline Lungs: Clear to Auscultation, Normal Respiratory Effort Cardiovascular: Regular Rate, Regular Rhythm GI/Abdominal Exam: Normal Bowel Sounds, Soft, No Distention (Female) Exam: Deferred Rectal (Female) Exam: Deferred Back Exam: Normal Inspection, Full Range of Motion Extremities: Normal Inspection, No Pedal Edema Skin: Warm, Dry, Intact Neuro Extensive - Mental Status: Alert, Oriented x3 Psychiatric: Alert, Normal Affect - Patient Data Lab Results Last 24 hrs: Laboratory Results - last 24 hr 11/12/20 11/12/20 11/12/20 Range/Units 19:45 19:45 19:45 WBC 15.98 H (3.98-10.04) K/mm3 RBC 4.42 (3.98-5.22) M/mm3 Hgb 12.5 (11.2-15.7) gm/dl Hct 37.9 (34.1-44.9) % MCV 85.7 (79.4-94.8) fl MCH 28.3 (25.6-32.2) pg MCHC 33.0 (32.2-35.5) g/dl RDW Std Deviation 43.6 (36.4-46.3) fL Plt Count 364 (182-369) K/mm3 MPV 9.7 (9.4-12.3) fl Neut % (Auto) 82.1 H (34.0-71.1) % Lymph % (Auto) 8.7 L (19.3-51.7) % [place] % (Auto) 7.6 (4.7-12.5) % Eos % (Auto) 0.3 L (0.7-5.8) Baso % (Auto) 0.2 (0.1-1.2) % Neut # (Auto) 13.12 H (1.56-6.13) K/mm3 Lymph # (Auto) 1.39 (1.18-3.74) K/mm3 [place] # (Auto) 1.22 H (0.24-0.36) K/mm3 Eos # (Auto) 0.05 (0.04-0.36) K/mm3 Baso # (Auto) 0.03 (0.01-0.08) K/mm3 Manual Slide Review Abnormal smear Puncture Site Lt radial ABG pH 7.42 (7.35-7.45) ABG pCO2 47.7 H (35.0-45.0) mmHg ABG pO2 41.0 L (80.0-100.0) mmHg ABG HCO3 30.3 H (22.0-26.0) meq/L ABG O2 Saturation 75.4 L (96.0-97.0) % ABG Base Excess 5.3 H (-2-2.0) Tramaine Test Positive A-a Gradient 49 mmHg O2 Delivery Device Room air FiO2 21.00 (21.00-100.00) % Sodium 138 (136-145) mEq/L Potassium 3.0 L (3.5-5.1) mEq/L Chloride 96 L (98-107) mEq/L Carbon Dioxide 32 (21-32) mEq/L Anion Gap 13.0 (5-15) BUN 11 (7-18) mg/dL Creatinine 0.8 (0.55-1.02) mg/dL Est Cr Clr Drug Dosing 57.67 mL/min Estimated GFR (MDRD) > 60 (>60) mL/min BUN/Creatinine Ratio 13.8 L (14-18) Glucose 111 H (70-99) mg/dL Calcium 8.9 (8.5-10.1) mg/dL Total Bilirubin 0.6 (0.2-1.0) mg/dL AST 19 (15-37) U/L ALT 37 (14-59) U/L Alkaline Phosphatase 69 (46-116) U/L CK-MB (CK-2) (0-3.6) ng/ml Troponin I (0.00-0.056) ng/mL C-Reactive Protein 11.9 H* (<1.0) mg/dL NT-Pro-B Natriuret Pep (0-125) pg/mL Total Protein 7.3 (6.4-8.2) g/dl Albumin 3.5 (3.4-5.0) g/dl Globulin 3.8 gm/dL Albumin/Globulin Ratio 0.9 L (1-2) 11/12/20 11/12/20 Range/Units 19:45 19:45 WBC (3.98-10.04) K/mm3 RBC (3.98-5.22) M/mm3 Hgb (11.2-15.7) gm/dl Hct (34.1-44.9) % MCV (79.4-94.8) fl MCH (25.6-32.2) pg MCHC (32.2-35.5) g/dl RDW Std Deviation (36.4-46.3) fL Plt Count (182-369) K/mm3 MPV (9.4-12.3) fl Neut % (Auto) (34.0-71.1) % Lymph % (Auto) (19.3-51.7) % [place] % (Auto) (4.7-12.5) % Eos % (Auto) (0.7-5.8) Baso % (Auto) (0.1-1.2) % Neut # (Auto) (1.56-6.13) K/mm3 Lymph # (Auto) (1.18-3.74) K/mm3 [place] # (Auto) (0.24-0.36) K/mm3 Eos # (Auto) (0.04-0.36) K/mm3 Baso # (Auto) (0.01-0.08) K/mm3 Manual Slide Review Puncture Site ABG pH (7.35-7.45) ABG pCO2 (35.0-45.0) mmHg ABG pO2 (80.0-100.0) mmHg ABG HCO3 (22.0-26.0) meq/L ABG O2 Saturation (96.0-97.0) % ABG Base Excess (-2-2.0) Tramaine Test A-a Gradient mmHg O2 Delivery Device FiO2 (21.00-100.00) % Sodium (136-145) mEq/L Potassium (3.5-5.1) mEq/L Chloride (98-107) mEq/L Carbon Dioxide (21-32) mEq/L Anion Gap (5-15) BUN (7-18) mg/dL Creatinine (0.55-1.02) mg/dL Est Cr Clr Drug Dosing mL/min Estimated GFR (MDRD) (>60) mL/min BUN/Creatinine Ratio (14-18) Glucose (70-99) mg/dL Calcium (8.5-10.1) mg/dL Total Bilirubin (0.2-1.0) mg/dL AST (15-37) U/L ALT (14-59) U/L Alkaline Phosphatase (46-116) U/L CK-MB (CK-2) 0.9 (0-3.6) ng/ml Troponin I < 0.017 (0.00-0.056) ng/mL C-Reactive Protein (<1.0) mg/dL NT-Pro-B Natriuret Pep 1033 H (0-125) pg/mL Total Protein (6.4-8.2) g/dl Albumin (3.4-5.0) g/dl Globulin gm/dL Albumin/Globulin Ratio (1-2) Result Diagrams: 11/12/20 19:45 11/12/20 19:45 Sepsis Event Note - Evaluation Sepsis Screening Result: No Definite Risk - Focused Exam Vital Signs: Vital Signs Temp Temp Pulse Pulse Resp BP BP 11/13/20 03:42 36.8 C 63 18 136/72 11/12/20 23:59 37.1 C 65 20 128/79 11/12/20 23:45 66 20 11/12/20 20:01 11/12/20 19:17 36.4 C 72 18 167/76 H Pulse Ox Pulse Ox 11/13/20 03:42 93 L 11/12/20 23:59 97 11/12/20 23:45 99 11/12/20 20:01 98 11/12/20 19:17 86 L - Problem List (1) Hypoxia SNOMED Code(s): 128246026 ICD Code: R09.02 - HYPOXEMIA Status: Acute Priority: High Current Visit: Yes (2) CHF (congestive heart failure) SNOMED Code(s): 76986983 ICD Code: I50.9 - HEART FAILURE, UNSPECIFIED Status: Acute Priority: High Current Visit: Yes Qualifiers: Heart failure type: unspecified Heart failure chronicity: acute Qualified Code(s): I50.9 - Heart failure, unspecified (3) Obesity with sleep apnea SNOMED Code(s): 27919123 ICD Code: G47.30 - SLEEP APNEA, UNSPECIFIED; E66.9 - OBESITY, UNSPECIFIED Status: Chronic Priority: Medium Current Visit: Yes (4) Nausea and vomiting SNOMED Code(s): 49315039 ICD Code: R11.2 - NAUSEA WITH VOMITING, UNSPECIFIED Status: Acute Priority: High Current Visit: Yes Qualifiers: Vomiting type: bilious vomiting Qualified Code(s): R11.14 - Bilious vomiting (5) Post-operative pain SNOMED Code(s): 948178374 ICD Code: G89.18 - OTHER ACUTE POSTPROCEDURAL PAIN Status: Chronic Priority: Medium Current Visit: Yes Problem List Initiated/Reviewed/Updated: Yes Orders Last 24hrs: Active Orders 24 hr Category Date Time Status Admission Status [Patient Status] [ADT] Routine ADT 11/12/20 22:57 Active Oxygen Therapy Adult [Oxygen Therapy] [RC] ASDIRECTED Care 11/13/20 00:26 Active Up With Assistance [RC] BID Care 11/13/20 00:21 Active Cardiac [Heart Healthy Diet] [DIET] Diet 11/13/20 Breakfast Active Chest PE [Ang Chest] [CT] Stat Exams 11/12/20 21:03 Taken HYDROmorphone [Dilaudid] Med 11/13/20 00:25 Active 1 mg IVPUSH Q3H PRN Metoclopramide [Reglan] Med 11/13/20 00:26 Active 10 mg IVPUSH Q6H PRN Sodium Chloride 0.9% [Normal Saline] 1,000 ml Med 11/13/20 00:30 Active IV ASDIRECTED Pulse Oximetry Continuous Monitoring [OM.PC] Routine Oth 11/13/20 00:27 Active Code Status [Resuscitation Status] Routine Resus Stat 11/13/20 00:16 Ordered Medication Orders Hydromorphone HCl (Hydromorphone 1 Mg/Ml Syringe) 1 mg IVPUSH Q3H PRN PRN Reason: Pain Last Admin: 11/13/20 06:25 Dose: 1 mg Documented by: Admin: 11/13/20 01:35 Dose: 1 mg Documented by: ROGERS Sodium Chloride (Normal Saline) 1,000 mls @ 100 mls/hr IV ASDIRECTED [facility] Metoclopramide HCl (Metoclopramide 10 Mg/2 Ml Sdv) 10 mg IVPUSH Q6H PRN PRN Reason: Nausea Assessment/Plan Comment:: The patient is a 60-year-old lady who had been admitted to the hospital out of concern for hypoxia. Patient also had elevation of her BNP and a history of COVID-19. I have ordered a 2D echocardiogram to help exclude cardiomyopathy due to COVID-19. The patient also likely has obesity associated pulmonary hypoventilation. She does use a CPAP device at home. With the patient's current nasal packing she is likely unable to use her CPAP device. She will be kept on facemask to help deliver oxygen to keep her saturations around 92%. The patient's pain will be controlled with the use of narcotics as necessary. She w ill have a regular diet as tolerated. Repeat laboratory studies have been ordered for the morning. The patient has been encouraged to ambulate. DVT prophylaxis will be with the use of Lovenox 30 mg subcutaneous on a daily basis. - Mortality Measure Prognosis:: Good
[2020-11-13] MEDS ORDERED: Albuterol 6.7 GM Inhaler INH PRN (07:22)
--- NOTE | 2020-11-13 08:03 | CT ---
CT chest Technique: Multiple axial sections through the chest were obtained. Intravenous contrast was utilized. Reconstructed coronal and sagittal and coronal images were obtained. Comparison: Prior chest x-ray performed earlier on the same day (7:40 PM). Findings: Pulmonary arteries are well opacified. No filling defects are seen to indicate pulmonary embolism. Thoracic aorta shows no aneurysm. Mediastinum and hilar regions show no adenopathy. Very small pleural effusions are seen within both lung bases. Mild increased density is noted within both posterior lungs, findings are worse on the right side. Lungs otherwise are clear. No pericardial thickening is seen. Diffuse fatty infiltration is seen within the liver. Kidneys show slightly prominent collecting systems which are felt to be within normal limits. Bone window settings were reviewed which shows minimal degenerative change within the spine. No acute osseous abnormality is appreciated. Impression: 1. No findings of pulmonary embolism. 2. Small pleural effusions on both sides. Increased density within both posterior lungs, worse on the right side. Increased density could represent areas of pneumonia if patient has infectious symptoms. 3. Fatty infiltration within the liver and other findings believed to be incidental as noted above. Diagnostic code #3 I agree with preliminary report from [facility] finalized on 11/12/20, 11:42 PM CDT, code 1
[2020-11-13] MEDS: Potassium Chloride 20 MEQ Tab.ER PO SCH (09:22)
[2020-11-13] MEDS: Hydrochlorothiazide 25 MG Tab PO SCH (09:22)
[2020-11-13] MEDS: FLUTICASONE INH SCH (09:26)
[2020-11-13] MEDS: VILANTEROL INH SCH (09:26)
[2020-11-13] MEDS: Enoxaparin 40 MG/0.4 ML Syringe SUBCUT SCH (12:33)
[2020-11-13] MEDS ORDERED: Magnesium Hydroxide 400 MG/5 ML Susp 30 ML Cup PO ONE (14:15)
[2020-11-13] MEDS: Furosemide 20 MG Tab PO SCH (14:35)
[2020-11-13] MEDS ORDERED: traZODone 50 MG Tab PO PRN (19:48)
[2020-11-13] MEDS ORDERED: amLODIPine 10 MG Tab PO SCH (21:00)
[2020-11-13] MEDS ORDERED: Rosuvastatin 10 MG Tab PO SCH (21:00)
[2020-11-13] MEDS ORDERED: Sertraline 50 MG Tab PO SCH (21:00)
[2020-11-14] MEDS: Furosemide 20 MG Tab PO SCH ×2 (05:39→14:19)
--- NOTE | 2020-11-14 08:00 | PCM.PN ---
- Patient Data Vitals - Most Recent: Last Vital Signs Temp 37.0 C 11/14/20 04:23 Pulse 64 11/14/20 04:23 Resp 18 11/14/20 04:23 BP 133/57 L 11/14/20 04:23 Pulse Ox 96 11/14/20 06:17 Weight - Most Recent: 97.84 kg I&O - Last 24 Hours: Intake & Output 11/13/20 11/14/20 11/14/20 22:59 06:59 14:59 Intake Total 1427 500 Output Total 1550 875 Balance -123 -375 Lab Results Last 24 Hours: Laboratory Results - last 24 hr 11/14/20 11/14/20 Range/Units 06:01 06:01 WBC 13.36 H (3.98-10.04) K/mm3 RBC 4.71 (3.98-5.22) M/mm3 Hgb 13.1 (11.2-15.7) gm/dl Hct 40.9 (34.1-44.9) % MCV 86.8 (79.4-94.8) fl MCH 27.8 (25.6-32.2) pg MCHC 32.0 L (32.2-35.5) g/dl RDW Std Deviation 45.1 (36.4-46.3) fL Plt Count 444 H D (182-369) K/mm3 MPV 10.0 (9.4-12.3) fl Neut % (Auto) 72.2 H (34.0-71.1) % Lymph % (Auto) 15.7 L (19.3-51.7) % [place] % (Auto) 8.5 (4.7-12.5) % Eos % (Auto) 3.0 (0.7-5.8) Baso % (Auto) 0.2 (0.1-1.2) % Neut # (Auto) 9.63 H (1.56-6.13) K/mm3 Lymph # (Auto) 2.10 (1.18-3.74) K/mm3 [place] # (Auto) 1.14 H (0.24-0.36) K/mm3 Eos # (Auto) 0.40 H (0.04-0.36) K/mm3 Baso # (Auto) 0.03 (0.01-0.08) K/mm3 Sodium 143 (136-145) mEq/L Potassium 3.2 L (3.5-5.1) mEq/L Chloride 99 (98-107) mEq/L Carbon Dioxide 36 H (21-32) mEq/L Anion Gap 11.2 (5-15) BUN 11 (7-18) mg/dL Creatinine 0.8 (0.55-1.02) mg/dL Est Cr Clr Drug Dosing 57.67 mL/min Estimated GFR (MDRD) > 60 (>60) mL/min BUN/Creatinine Ratio 13.8 L (14-18) Glucose 101 H (70-99) mg/dL Calcium 9.1 (8.5-10.1) mg/dL Magnesium 2.1 (1.8-2.4) mg/dL Total Bilirubin 0.5 (0.2-1.0) mg/dL AST 14 L (15-37) U/L ALT 29 (14-59) U/L Alkaline Phosphatase 70 (46-116) U/L Total Protein 7.6 (6.4-8.2) g/dl Albumin 3.4 (3.4-5.0) g/dl Globulin 4.2 gm/dL Albumin/Globulin Ratio 0.8 L (1-2) Med Orders - Current: Current Medications Albuterol (Albuterol 6.7 Gm Inhaler) 0 gm INH Q4H PRN PRN Reason: Shortness of Breath Amlodipine Besylate (Amlodipine 10 Mg Tab) 10 mg PO BEDTIME [facility] Last Admin: 11/13/20 21:07 Dose: 10 mg Documented by: Enoxaparin Sodium (Enoxaparin 40 Mg/0.4 Ml Syringe) 40 mg SUBCUT DAILY [facility] Last Admin: 11/13/20 12:33 Dose: 40 mg Documented by: Furosemide (Furosemide 20 Mg Tab) 20 mg PO BIDDIURETIC [facility] Last Admin: 11/14/20 05:39 Dose: 20 mg Documented by: Hydrochlorothiazide (Hydrochlorothiazide 25 Mg Tab) 25 mg PO DAILY [facility] Last Admin: 11/13/20 09:22 Dose: 25 mg Documented by: Hydromorphone HCl (Hydromorphone 1 Mg/Ml Syringe) 1 mg IVPUSH Q3H PRN PRN Reason: Pain Last Admin: 11/13/20 09:59 Dose: 1 mg Documented by: Metoclopramide HCl (Metoclopramide 10 Mg/2 Ml Sdv) 10 mg IVPUSH Q6H PRN PRN Reason: Nausea Fluticasone/Vilanterol 200 Mcg/25 McgPtom 1 dose INH DAILY [facility] Last Admin: 11/13/20 09:26 Dose: 1 dose Documented by: Potassium Chloride (Potassium Chloride 20 Meq Tab.Er) 20 meq PO DAILY [facility] Last Admin: 11/13/20 09:22 Dose: 20 meq Documented by: Rosuvastatin Calcium (Rosuvastatin 10 Mg Tab) 10 mg PO BEDTIME [facility] Last Admin: 11/13/20 21:07 Dose: 10 mg Documented by: Sertraline HCl (Sertraline 50 Mg Tab) 100 mg PO BEDTIME [facility] Last Admin: 11/13/20 21:07 Dose: 100 mg Documented by: Trazodone HCl (Trazodone 50 Mg Tab) 50 mg PO BEDTIME PRN PRN Reason: Sleep Last Admin: 11/13/20 21:08 Dose: 50 mg Documented by: Discontinued Medications Diphenhydramine HCl (Diphenhydramine 50 Mg/Ml Sdv) 25 mg IVPUSH ONETIME ONE Stop: 11/12/20 19:29 Last Admin: 11/12/20 19:57 Dose: 25 mg Documented by: Furosemide (Furosemide 40 Mg/4 Ml Vial) 40 mg IVPUSH NOW ONE Stop: 11/12/20 20:43 Last Admin: 11/12/20 20:53 Dose: 40 mg Documented by: Furosemide (Furosemide 20 Mg/2 Ml Vial) 40 mg IVPUSH ONETIME ONE Stop: 11/13/20 06:01 Last Admin: 11/13/20 06:19 Dose: 40 mg Documented by: Hydromorphone HCl (Hydromorphone 1 Mg/Ml Syringe) 1 mg IVPUSH ONETIME ONE Stop: 11/12/20 19:30 Last Admin: 11/12/20 19:57 Dose: 0.5 mg Documented by: Dextrose/Sodium Chloride (Dextrose 5%-Normal Saline) 1,000 mls @ 999 mls/hr IV ASDIRECTED [facility] Last Admin: 11/12/20 19:56 Dose: 999 mls/hr Documented by: Sodium Chloride (Normal Saline) 1,000 mls @ 100 mls/hr IV ASDIRECTED [facility] Last Admin: 11/12/20 23:10 Dose: 100 mls/hr Documented by: Potassium Chloride 10 meq/ (Premix) 100 mls @ 100 mls/hr IV Q1H [facility] Stop: 11/13/20 03:59 Last Admin: 11/13/20 04:39 Dose: 100 mls/hr Documented by: Sodium Chloride (Normal Saline) 1,000 mls @ 100 mls/hr IV ASDIRECTED [facility] Last Admin: 11/13/20 09:20 Dose: 100 mls/hr Documented by: Magnesium Hydroxide (Magnesium Hydroxide 400 Mg/5 Ml Susp 30 Ml Cup) 30 ml PO ONETIME ONE Stop: 11/13/20 14:16 Last Admin: 11/13/20 14:35 Dose: 30 ml Documented by: Metoclopramide HCl (Metoclopramide 10 Mg/2 Ml Sdv) 7.5 mg IVPUSH ONETIME ONE Stop: 11/12/20 19:29 Last Admin: 11/12/20 19:57 Dose: 7.5 mg Documented by: - Patient Data Lab Results Last 24 hrs: Laboratory Results - last 24 hr 11/14/20 11/14/20 Range/Units 06:01 06:01 WBC 13.36 H (3.98-10.04) K/mm3 RBC 4.71 (3.98-5.22) M/mm3 Hgb 13.1 (11.2-15.7) gm/dl Hct 40.9 (34.1-44.9) % MCV 86.8 (79.4-94.8) fl MCH 27.8 (25.6-32.2) pg MCHC 32.0 L (32.2-35.5) g/dl RDW Std Deviation 45.1 (36.4-46.3) fL Plt Count 444 H D (182-369) K/mm3 MPV 10.0 (9.4-12.3) fl Neut % (Auto) 72.2 H (34.0-71.1) % Lymph % (Auto) 15.7 L (19.3-51.7) % [place] % (Auto) 8.5 (4.7-12.5) % Eos % (Auto) 3.0 (0.7-5.8) Baso % (Auto) 0.2 (0.1-1.2) % Neut # (Auto) 9.63 H (1.56-6.13) K/mm3 Lymph # (Auto) 2.10 (1.18-3.74) K/mm3 [place] # (Auto) 1.14 H (0.24-0.36) K/mm3 Eos # (Auto) 0.40 H (0.04-0.36) K/mm3 Baso # (Auto) 0.03 (0.01-0.08) K/mm3 Sodium 143 (136-145) mEq/L Potassium 3.2 L (3.5-5.1) mEq/L Chloride 99 (98-107) mEq/L Carbon Dioxide 36 H (21-32) mEq/L Anion Gap 11.2 (5-15) BUN 11 (7-18) mg/dL Creatinine 0.8 (0.55-1.02) mg/dL Est Cr Clr Drug Dosing 57.67 mL/min Estimated GFR (MDRD) > 60 (>60) mL/min BUN/Creatinine Ratio 13.8 L (14-18) Glucose 101 H (70-99) mg/dL Calcium 9.1 (8.5-10.1) mg/dL Magnesium 2.1 (1.8-2.4) mg/dL Total Bilirubin 0.5 (0.2-1.0) mg/dL AST 14 L (15-37) U/L ALT 29 (14-59) U/L Alkaline Phosphatase 70 (46-116) U/L Total Protein 7.6 (6.4-8.2) g/dl Albumin 3.4 (3.4-5.0) g/dl Globulin 4.2 gm/dL Albumin/Globulin Ratio 0.8 L (1-2) Result Diagrams: 11/14/20 06:01 11/14/20 06:01 Sepsis Event Note - Evaluation Sepsis Screening Result: No Definite Risk - Focused Exam Vital Signs: Vital Signs Temp Pulse Resp BP Pulse Ox Pulse Ox 11/14/20 06:17 96 11/14/20 04:23 37.0 C 64 18 133/57 L 97 11/13/20 21:57 95 11/13/20 21:07 131/83 11/13/20 20:48 98 - Problem List & Annotations (1) Hypoxia SNOMED Code(s): 859262786 Code(s): R09.02 - HYPOXEMIA Status: Acute Priority: High Current Visit: Yes (2) CHF (congestive heart failure) SNOMED Code(s): 85562625 Code(s): I50.9 - HEART FAILURE, UNSPECIFIED Status: Acute Priority: High Current Visit: Yes Qualifiers: Heart failure type: unspecified Heart failure chronicity: acute Qualified Code(s): I50.9 - Heart failure, unspecified (3) Obesity with sleep apnea SNOMED Code(s): 36235197 Code(s): G47.30 - SLEEP APNEA, UNSPECIFIED; E66.9 - OBESITY, UNSPECIFIED Status: Chronic Priority: Medium Current Visit: Yes (4) Nausea and vomiting SNOMED Code(s): 93657894 Code(s): R11.2 - NAUSEA WITH VOMITING, UNSPECIFIED Status: Acute Priori ty: High Current Visit: Yes Qualifiers: Vomiting type: bilious vomiting Qualified Code(s): R11.14 - Bilious vomiting (5) Post-operative pain SNOMED Code(s): 191798498 Code(s): G89.18 - OTHER ACUTE POSTPROCEDURAL PAIN Status: Chronic Priority: Medium Current Visit: Yes - My Orders Last 24 Hours: My Active Orders 11/13/20 07:22 RT Post Treatment Assessment [RC] Click to Edit RT Pre-Treatment Assessment [RC] Click to Edit Albuterol [Proventil HFA] 0 gm INH Q4H PRN 11/13/20 08:12 Incentive Spirometry [RT Incentive Spirometry] [RC] ASDIRECTED 11/13/20 09:00 Fluticasone/Vilanterol 1 dose INH DAILY Potassium Chloride [Klor-Con M20] 20 meq PO DAILY hydroCHLOROthiazide 25 mg PO DAILY 11/13/20 12:00 Enoxaparin [Lovenox] 40 mg SUBCUT DAILY 11/13/20 14:00 Furosemide [Lasix] 20 mg PO BIDDIURETIC 11/13/20 19:48 traZODone 50 mg PO BEDTIME PRN 11/13/20 21:00 Rosuvastatin [Crestor] 10 mg PO BEDTIME Sertraline [Zoloft] 100 mg PO BEDTIME amLODIPine [Norvasc] 10 mg PO BEDTIME - Plan Plan:: The patient is a 60-year-old lady who had been admitted to the hospital out of concern for hypoxia. Patient also had elevation of her BNP and a history of COVID-19. I have ordered a 2D echocardiogram to help exclude cardiomyopathy due to COVID-19. The patient also likely has obesity associated pulmonary hypoventilation. She does use a CPAP device at home. With the patient's current nasal packing she is likely unable to use her CPAP device. She will be kept on facemask to help deliver oxygen to keep her saturations around 92%. The patient's pain will be controlled with the use of narcotics as necessary. She will have a regular diet as tolerated. Repeat laboratory studies have been ordered for the morning. The patient has been encouraged to ambulate. DVT prophylaxis will be with the use of Lovenox 30 mg subcutaneous on a daily basis.
[2020-11-14] MEDS: FLUTICASONE INH SCH (08:04)
[2020-11-14] MEDS: VILANTEROL INH SCH (08:04)
[2020-11-14 08:05] VITALS: PULSE 63
[2020-11-14] MEDS: Potassium Chloride 20 MEQ Tab.ER PO SCH (08:10)
[2020-11-14] MEDS: Enoxaparin 40 MG/0.4 ML Syringe SUBCUT SCH (08:10)
[2020-11-14] MEDS: Hydrochlorothiazide 25 MG Tab PO SCH (08:11)
[2020-11-14] MEDS: HYDROmorphone 1 MG/ML Syringe IVPUSH PRN ×2 (08:23→12:43)
--- NOTE | 2020-11-14 08:46 | PCM.DCSUM1 ---
Discharge Summary - Hospital Course HPI Initial Comments: The patient was admitted secondary to hypoxia and elevation of her BNP Diagnosis: Stroke: No - Discharge Data Discharge Date: 11/14/20 Discharge Disposition: Home, Self-Care 01 Condition: Good - Referral to Home Health Primary Care Physician: Irina Rabago MD - Discharge Diagnosis/Problem(s) (1) Hypoxia SNOMED Code(s): 889239899 ICD Code: R09.02 - HYPOXEMIA Status: Acute Priority: High Current Visit: Yes (2) CHF (congestive heart failure) SNOMED Code(s): 58039916 ICD Code: I50.9 - HEART FAILURE, UNSPECIFIED Status: Ruled-out Priority: High Current Visit: Yes Qualifiers: Heart failure type: unspecified Heart failure chronicity: acute Qualified Code(s): I50.9 - Heart failure, unspecified (3) Obesity with sleep apnea SNOMED Code(s): 68578810 ICD Code: G47.30 - SLEEP APNEA, UNSPECIFIED; E66.9 - OBESITY, UNSPECIFIED Status: Chronic Priority: Medium Current Visit: Yes (4) Nausea and vomiting SNOMED Code(s): 38035259 ICD Code: R11.2 - NAUSEA WITH VOMITING, UNSPECIFIED Status: Resolved Priority: High Current Visit: Yes Qualifiers: Vomiting type: bilious vomiting Qualified Code(s): R11.14 - Bilious vomiting (5) Post-operative pain SNOMED Code(s): 386536571 ICD Code: G89.18 - OTHER ACUTE POSTPROCEDURAL PAIN Status: Chronic Priority: Medium Current Visit: Yes - Patient Summary/Data Hospital Course: The patient is a 60-year-old lady who had been recently discharged from [place] for bilateral maxillary and ethmoid sinus surgery. The patient was discharged on November 09, 2020. The patient had presented to the emergency department primarily out of concern for pain control. The patient was noted to be very hypoxic in the emergency department and she also related shortness of breath. A 2D echocardiogram was obtained November 13, 2020 and revealed left ventricular ejection fraction estimated at 60 to 65% with normal right ventricular systolic function. She had trace mitral valve regurgitation and mild tricuspid valve regurgitation. Her right ventricular systolic pressure was at 43.4 mmHg. The patient had been given a prescription for low-dose of Lasix 20 mg p.o. daily. The patient may be able to come off of this at a later date. The patient has reported that she is feeling better. The patient has been tolerating her heart healthy diet. She had improved sufficiently to be discharged and feels like she can go home today. The patient has a follow-up appointment with ENT surgeon. The patient has been recommended to continue with her heart healthy diet as tolerated. She has activity as tolerated. The patient has been discharged from acute hospitalization with the recommendations listed above. - Patient Instructions Diet: Heart Healthy Diet Activity: As Tolerated - Discharge Plan *PRESCRIPTION DRUG MONITORING PROGRAM REVIEWED*: Not Applicable *COPY OF PRESCRIPTION DRUG MONITORING REPORT IN PATIENT RAND: Not Applicable Prescriptions/Med Rec: HYDROmorphone [Dilaudid] 4 mg PO Q4H PRN #16 tablet PRN Reason: Post op surgical pain Furosemide [Lasix] 20 mg PO DAILY #30 tablet Home Medications: Home Meds Sertraline [Zoloft] 100 mg PO BEDTIME 03/26/16 [History] amLODIPine [Norvasc] 10 mg PO BEDTIME 04/23/20 [History] hydroCHLOROthiazide [Hydrochlorothiazide] 25 mg PO DAILY 04/23/20 [History] Albuterol [Proventil HFA] 2 puff INH Q4H PRN #1 inhaler 04/28/20 [Rx] Fluticasone/Vilanterol [Breo Ellipta 200-25 MCG Inhalation Kit] 1 dose INH DAILY 11/12/20 [History] HYDROmorphone [Dilaudid] 4 mg PO Q4H PRN #16 tablet 11/12/20 [Rx] Ondansetron [Zofran ODT] 4 mg SL ASDIRECTED PRN 11/12/20 [History] Potassium Chloride [Klor-Con M20] 20 meq PO DAILY 11/12/20 [History] Rosuvastatin [Crestor] 10 mg PO BEDTIME 11/12/20 [History] oxyCODONE HCl [Oxycodone HCl] 5 mg PO ASDIRECTED PRN 11/12/20 [History] Acetaminophen [Tylenol Extra Strength] 2 cap PO Q6HR PRN 11/13/20 [History] Furosemide [Lasix] 20 mg PO DAILY #30 tablet 11/14/20 [Rx] Oxygen Therapy Mode: Nasal Cannula Oxygen Flow Rate (L/min): 2 Patient Handouts: Heart Failure Action Plan Forms: ED Department Discharge Referrals: Irina Rabago MD [Primary Care Provider] - - Discharge Summary/Plan Comment DC Time >30 min.: Yes - General Info Date of Service: 11/14/20 Admission Dx/Problem (Free Text: Admission Diagnosis/Problem Admission Diagnosis/Problem Hypoxia, post maxillary sinus surgery Subjective Update: Overall, the patient is doing better today. She has been tolerating her diet. Her pain is being controlled. She feels like she can go home today. Functional Status: Reports: Pain Controlled, Tolerating Diet - Review of Systems General: Reports: No Symptoms HEENT: Reports: No Symptoms Pulmonary: Reports: No Symptoms Cardiovascular: Reports: No Symptoms Gastrointestinal: Reports: No Symptoms Genitourinary: Reports: No Symptoms Musculoskeletal: Reports: No Symptoms Skin: Reports: No Symptoms Neurological: Reports: No Symptoms Psychiatric: Reports: No Symptoms - Patient Data Vitals - Most Recent: Last Vital Signs Temp 36.8 C 11/14/20 07:45 Pulse 63 11/14/20 07:45 Resp 20 11/14/20 07:45 BP 142/72 H 11/14/20 07:45 Pulse Ox 94 L 11/14/20 08:17 Weight - Most Recent: 97.84 kg I&O - Last 24 hours: Intake & Output 11/13/20 11/14/20 11/14/20 22:59 06:59 14:59 Intake Total 1427 500 Output Total 1550 875 Balance -123 -375 Lab Results - Last 24 hrs: Laboratory Results - last 24 hr 11/14/20 11/14/20 Range/Units 06:01 06:01 WBC 13.36 H (3.98-10.04) K/mm3 RBC 4.71 (3.98-5.22) M/mm3 Hgb 13.1 (11.2-15.7) gm/dl Hct 40.9 (34.1-44.9) % MCV 86.8 (79.4-94.8) fl MCH 27.8 (25.6-32.2) pg MCHC 32.0 L (32.2-35.5) g/dl RDW Std Deviation 45.1 (36.4-46.3) fL Plt Count 444 H D (182-369) K/mm3 MPV 10.0 (9.4-12.3) fl Neut % (Auto) 72.2 H (34.0-71.1) % Lymph % (Auto) 15.7 L (19.3-51.7) % Bent % (Auto) 8.5 (4.7-12.5) % Eos % (Auto) 3.0 (0.7-5.8) Baso % (Auto) 0.2 (0.1-1.2) % Neut # (Auto) 9.63 H (1.56-6.13) K/mm3 Lymph # (Auto) 2.10 (1.18-3.74) K/mm3 Bent # (Auto) 1.14 H (0.24-0.36) K/mm3 Eos # (Auto) 0.40 H (0.04-0.36) K/mm3 Baso # (Auto) 0.03 (0.01-0.08) K/mm3 Sodium 143 (136-145) mEq/L Potassium 3.2 L (3.5-5.1) mEq/L Chloride 99 (98-107) mEq/L Carbon Dioxide 36 H (21-32) mEq/L Anion Gap 11.2 (5-15) BUN 11 (7-18) mg/dL Creatinine 0.8 (0.55-1.02) mg/dL Est Cr Clr Drug Dosing 57.67 mL/min Estimated GFR (MDRD) > 60 (>60) mL/min BUN/Creatinine Ratio 13.8 L (14-18) Glucose 101 H (70-99) mg/dL Calcium 9.1 (8.5-10.1) mg/dL Magnesium 2.1 (1.8-2.4) mg/dL Total Bilirubin 0.5 (0.2-1.0) mg/dL AST 14 L (15-37) U/L ALT 29 (14-59) U/L Alkaline Phosphatase 70 (46-116) U/L Total Protein 7.6 (6.4-8.2) g/dl Albumin 3.4 (3.4-5.0) g/dl Globulin 4.2 gm/dL Albumin/Globulin Ratio 0.8 L (1-2) Med Orders - Current: Current Medications Albuterol (Albuterol 6.7 Gm Inhaler) 0 gm INH Q4H PRN PRN Reason: Shortness of Breath Amlodipine Besylate (Amlodipine 10 Mg Tab) 10 mg PO BEDTIME [facility] Last Admin: 11/13/20 21:07 Dose: 10 mg Documented by: Enoxaparin Sodium (Enoxaparin 40 Mg/0.4 Ml Syringe) 40 mg SUBCUT DAILY [facility] Last Admin: 11/14/20 08:10 Dose: 40 mg Documented by: Furosemide (Furosemide 20 Mg Tab) 20 mg PO BIDDIURETIC [facility] Last Admin: 11/14/20 05:39 Dose: 20 mg Documented by: Hydrochlorothiazide (Hydrochlorothiazide 25 Mg Tab) 25 mg PO DAILY [facility] Last Admin: 11/14/20 08:11 Dose: 25 mg Documented by: Hydromorphone HCl (Hydromorphone 1 Mg/Ml Syringe) 1 mg IVPUSH Q3H PRN PRN Reason: Pain Last Admin: 11/14/20 08:23 Dose: 1 mg Documented by: Metoclopramide HCl (Metoclopramide 10 Mg/2 Ml Sdv) 10 mg IVPUSH Q6H PRN PRN Reason: Nausea Fluticasone/Vilanterol 200 Mcg/25 McgPtom 1 dose INH DAILY [facility] Last Admin: 11/14/20 08:04 Dose: 1 dose Documented by: Potassium Chloride (Potassium Chloride 20 Meq Tab.Er) 20 meq PO DAILY [facility] Last Admin: 11/14/20 08:10 Dose: 20 meq Documented by: Rosuvastatin Calcium (Rosuvastatin 10 Mg Tab) 10 mg PO BEDTIME [facility] Last Admin: 11/13/20 21:07 Dose: 10 mg Documented by: Sertraline HCl (Sertraline 50 Mg Tab) 100 mg PO BEDTIME [facility] Last Admin: 11/13/20 21:07 Dose: 100 mg Documented by: Trazodone HCl (Trazodone 50 Mg Tab) 50 mg PO BEDTIME PRN PRN Reason: Sleep Last Admin: 11/13/20 21:08 Dose: 50 mg Documented by: Discontinued Medications Diphenhydramine HCl (Diphenhydramine 50 Mg/Ml Sdv) 25 mg IVPUSH ONETIME ONE Stop: 11/12/20 19:29 Last Admin: 11/12/20 19:57 Dose: 25 mg Documented by: Furosemide (Furosemide 40 Mg/4 Ml Vial) 40 mg IVPUSH NOW ONE Stop: 11/12/20 20:43 Last Admin: 11/12/20 20:53 Dose: 40 mg Documented by: Furosemide (Furosemide 20 Mg/2 Ml Vial) 40 mg IVPUSH ONETIME ONE Stop: 11/13/20 06:01 Last Admin: 11/13/20 06:19 Dose: 40 mg Documented by: Hydromorphone HCl (Hydromorphone 1 Mg/Ml Syringe) 1 mg IVPUSH ONETIME ONE Stop: 11/12/20 19:30 Last Admin: 11/12/20 19:57 Dose: 0.5 mg Documented by: Dextrose/Sodium Chloride (Dextrose 5%-Normal Saline) 1,000 mls @ 999 mls/hr IV ASDIRECTED [facility] Last Admin: 11/12/20 19:56 Dose: 999 mls/hr Documented by: Sodium Chloride (Normal Saline) 1,000 mls @ 100 mls/hr IV ASDIRECTED [facility] Last Admin: 11/12/20 23:10 Dose: 100 mls/hr Documented by: Potassium Chloride 10 meq/ (Premix) 100 mls @ 100 mls/hr IV Q1H [facility] Stop: 11/13/20 03:59 Last Admin: 11/13/20 04:39 Dose: 100 mls/hr Documented by: Sodium Chloride (Normal Saline) 1,000 mls @ 100 mls/hr IV ASDIRECTED [facility] Last Admin: 11/13/20 09:20 Dose: 100 mls/hr Documented by: Magnesium Hydroxide (Magnesium Hydroxide 400 Mg/5 Ml Susp 30 Ml Cup) 30 ml PO ONETIME ONE Stop: 11/13/20 14:16 Last Admin: 11/13/20 14:35 Dose: 30 ml Documented by: Metoclopramide HCl (Metoclopramide 10 Mg/2 Ml Sdv) 7.5 mg IVPUSH ONETIME ONE Stop: 11/12/20 19:29 Last Admin: 11/12/20 19:57 Dose: 7.5 mg Documented by: - Exam Quality Assessment: Reports: Supplemental Oxygen General: Reports: Alert, Oriented, Cooperative HEENT: Reports: Pupils Equal, Pupils Reactive, EOMI, Mucous Membr. Moist/[place] Neck: Reports: Supple, Trachea Midline Lungs: Reports: Clear to Auscultation, Normal Respiratory Effort Cardiovascular: Reports: Regular Rate, Regular Rhythm GI/Abdominal Exam: Normal Bowel Sounds, Soft, No Distention. No: Guarding, Rigid (Female) Exam: Deferred Rectal (Female) Exam: Deferred Back Exam: Reports: Normal Inspection, Full Range of Motion Extremities: Normal Inspection, Normal Range of Motion, No Pedal Edema Skin: Reports: Warm, Dry, Intact Neurological: Reports: No New Focal Deficit Psy/Mental Status: Reports: Alert, Normal Affect, Normal Mood
[2020-11-14] MEDS ORDERED: Potassium Chloride 20 MEQ Tab.ER PO ONE (11:30)
[2020-11-14 14:23] VITALS: BP 133/82
== END 2020-11-14 15:30 | disposition home or self-care (01) | DRG 206 ==
LOC: JD.ED 19:09 → JD.MS 22:57
PROVIDERS: ADMIT Internal Medicine; ATTEND Internal Medicine
DX: R09.02 Hypoxemia (principal); F32.9 Major depressive disorder, single episode, unspecified; F41.9 Anxiety disorder, unspecified; E03.9 Hypothyroidism, unspecified; G47.30 Sleep apnea, unspecified; G89.18 Other acute postprocedural pain; Z86.16 Personal history of COVID-19; E66.9 Obesity, unspecified; Z68.39 Body mass index [BMI] 39.0-39.9, adult
CPT/HCPCS: 36415; 36600; 71045; 71045-26; 71275; 71275-26; 80053; 82553; 82803; 83735; 83880; 84484; 85025; 86140; 93005; 93010; 93306; 94640; 94762; 96374; 96375; 99222; 99239; 99285; 99285-25; A9270-GY; J1170; J1200; J1650; J1940; J2765; J3480; J7030; J7042

== ENCOUNTER 2024-05-09 08:18 | Inpatient (IN) | payer OTHER ==
[2024-05-09] MEDS: Albuterol/Ipratropium 3.0-0.5 MG/3 ML Neb Soln NEB SCH ×2 (08:50→15:25)
[2024-05-09 08:55] LABS: BASOPHILS ABSOLUTE AUTO 0.1 K/mm3 (0.0-0.2); BASOPHILS PERCENT AUTO 0.4 % (0.0-1.0); EOSINOPHILS PERCENT AUTO 0.3 % (0.0-6.0); HEMATOCRIT 38.2 % (37.0-47.0); HEMOGLOBIN 12.6 gm/dl (12.0-16.0); IMMATURE GRAN ABSOLUTE AUTO 0.08 K/mm3 (0.00-0.05); IMMATURE GRAN PERCENT AUTO 0.6 % (0.0-0.4); LYMPHOCYTES ABSOLUTE AUTO 1.9 K/mm3 (1.0-4.8); LYMPHOCYTES PERCENT AUTO 13.5 % (24.0-44.0); MONOCYTES ABSOLUTE AUTO 1.5 K/mm3 (0.0-0.8); MONOCYTES PERCENT AUTO 10.3 % (0.0-8.0); NEUTROPHILS ABSOLUTE AUTO 10.5 K/mm3 (1.8-7.7); NEUTROPHILS PERCENT AUTO 74.9 % (41.0-71.0); PLATELET COUNT,PLT 292 K/mm3 (150-400); RED BLOOD CELL COUNT 4.34 M/mm3 (4.10-5.30); WHITE BLOOD CELL COUNT,WBC 14.01 K/mm3 (3.9-11.3)
[2024-05-09] MEDS: methylPREDNISolone Sodium Succinate 125 MG/2 ML SDV IVPUSH ONE (09:03)
[2024-05-09] MEDS: Sodium Chloride 0.9% 10 ML Syringe FLUSH PRN (09:05)
[2024-05-09 09:20] LABS: LACTIC ACID 1.1 mmol/L (0.4-2.0)
[2024-05-09 09:23] LABS: A/G RATIO 0.9 (1-2); ALBUMIN 3.6 g/dl (3.4-5.0); ANION GAP 9.8 (5-15); BILIRUBIN TOTAL 0.7 mg/dL (0.2-1.0); BUN/CREATININE RATIO 17.3 (14-18); CALCIUM 8.9 mg/dL (8.5-10.1); CREATININE 1.1 mg/dL (0.55-1.02); EST CRCL DRUG DOSING (CG) 39.79 mL/min; POTASSIUM,K 3.8 mEq/L (3.5-5.1); PROTEIN TOTAL,TP 7.6 g/dl (6.4-8.2)
[2024-05-09 09:35] LABS: CORONAVIRUS COVID-19 NAA NEGATIVE (NEGATIVE); INFLUENZA A NAA POSITIVE (NEGATIVE); RESPIRATORY SYNCYTIAL VIR NAA NEGATIVE (NEGATIVE)
[2024-05-09] MEDS ORDERED: cefTRIAXone 1 GM in Sodium Chloride 0.9% 50 ML IV ONE (11:25)
[2024-05-09] MEDS: cefTRIAXone 1 GM in Sodium Chloride 0.9% 100 ML IV ONE (12:04)
[2024-05-09] MEDS: Doxycycline Monohydrate 100 MG Cap PO ONE (12:04)
[2024-05-09] MEDS ORDERED: Oseltamivir 75 MG Cap PO SCH (13:15)
[2024-05-09] MEDS ORDERED: Oseltamivir 30 MG Cap PO SCH (13:15)
[2024-05-09] MEDS ORDERED: Docusate Sodium 100 MG Cap PO PRN (13:24)
[2024-05-09] MEDS ORDERED: oxyCODONE 5 MG Tab PO PRN (13:24)
[2024-05-09] MEDS ORDERED: Ondansetron 4 MG/2 ML SDV IV PRN (13:24)
[2024-05-09] MEDS ORDERED: Ondansetron 4 MG Tab.DIS PO PRN (13:24)
[2024-05-09] MEDS ORDERED: Polyethylene Glycol 3350 Powder 17 GM Packet PO PRN (13:24)
[2024-05-09] MEDS ORDERED: Albuterol 0.083% 2.5 MG/3 ML Neb Soln NEB PRN (13:24)
[2024-05-09] MEDS: Oseltamivir 75 MG Cap PO ONE (13:27)
[2024-05-09] MEDS: guaiFENesin/Dextromethorphan 100-10 MG/5 ML Soln 5 ML Cup PO SCH (16:46)
[2024-05-09] MEDS: Oseltamivir 30 MG Cap PO SCH (22:16)
[2024-05-09] MEDS: Rosuvastatin 10 MG Tab PO SCH (22:16)
[2024-05-09] MEDS: Sertraline 50 MG Tab PO SCH (22:16)
[2024-05-09] MEDS: amLODIPine 10 MG Tab PO SCH (22:17)
[2024-05-10 04:51] LABS: BASOPHILS PERCENT AUTO 0.1 % (0.0-1.0); HEMATOCRIT 36.1 % (37.0-47.0); HEMOGLOBIN 12.1 gm/dl (12.0-16.0); IMMATURE GRAN ABSOLUTE AUTO 0.13 K/mm3 (0.00-0.05); IMMATURE GRAN PERCENT AUTO 0.8 % (0.0-0.4); LYMPHOCYTES ABSOLUTE AUTO 1.5 K/mm3 (1.0-4.8); LYMPHOCYTES PERCENT AUTO 9.3 % (24.0-44.0); MEAN CORPUSCULAR HEMOGLOBIN 28.7 pg (28.0-32.0); MEAN CORPUSCULAR HGB CONC 33.5 g/dl (32.0-36.0); MEAN CORPUSCULAR VOLUME 85.5 fl (83.0-99.0); MEAN PLATELET VOLUME 10.4 fl (9.4-12.3); MONOCYTES ABSOLUTE AUTO 1.4 K/mm3 (0.0-0.8); MONOCYTES PERCENT AUTO 8.6 % (0.0-8.0); NEUTROPHILS PERCENT AUTO 81.2 % (41.0-71.0); PLATELET COUNT,PLT 294 K/mm3 (150-400); RED BLOOD CELL COUNT 4.22 M/mm3 (4.10-5.30); WHITE BLOOD CELL COUNT,WBC 16.08 K/mm3 (3.9-11.3)
[2024-05-10 05:25] LABS: A/G RATIO 0.8 (1-2); ALBUMIN 3.1 g/dl (3.4-5.0); BILIRUBIN TOTAL 0.3 mg/dL (0.2-1.0); C-REACTIVE PROTEIN 9.22 mg/dL (<0.30); CALCIUM 9.2 mg/dL (8.5-10.1); EST CRCL DRUG DOSING (CG) 43.77 mL/min; MAGNESIUM 2.2 mg/dL (1.8-2.4); PROTEIN TOTAL,TP 7.2 g/dl (6.4-8.2)
[2024-05-10] MEDS: Furosemide 20 MG Tab PO SCH (08:59)
[2024-05-10] MEDS ORDERED: Non-Formulary Medication 1 Each (Fluticasone/Vilanterol [Breo Ellipta 200-25 Mcg Inhalatio INH SCH (09:00)
[2024-05-10] MEDS ORDERED: Non-Formulary Medication 1 Each (Fluticasone/Umeclidin/Vilanter [Trelegy Ellipta 200-62.5- INH SCH (09:00)
[2024-05-10] MEDS: LORazepam 0.5 MG Tab PO SCH (09:05)
[2024-05-10] MEDS ORDERED: LORazepam 0.5 MG Tab PO PRN (09:06)
[2024-05-10] MEDS: Enoxaparin 40 MG/0.4 ML Syringe SUBCUT SCH (12:45)
[2024-05-10] MEDS: Acetaminophen 325 MG Tab PO PRN (19:47)
[2024-05-10] MEDS: Oseltamivir 75 MG Cap PO SCH (21:26)
[2024-05-11 04:26] LABS: BASOPHILS ABSOLUTE AUTO 0.1 K/mm3 (0.0-0.2); BASOPHILS PERCENT AUTO 0.4 % (0.0-1.0); EOSINOPHILS ABSOLUTE AUTO 0.1 K/mm3 (0.0-0.4); HEMOGLOBIN 11.5 gm/dl (12.0-16.0); IMMATURE GRAN ABSOLUTE AUTO 0.09 K/mm3 (0.00-0.05); IMMATURE GRAN PERCENT AUTO 0.7 % (0.0-0.4); LYMPHOCYTES ABSOLUTE AUTO 2.9 K/mm3 (1.0-4.8); LYMPHOCYTES PERCENT AUTO 21.5 % (24.0-44.0); MEAN CORPUSCULAR HEMOGLOBIN 28.5 pg (28.0-32.0); MEAN CORPUSCULAR HGB CONC 32.9 g/dl (32.0-36.0); MEAN CORPUSCULAR VOLUME 86.8 fl (83.0-99.0); MEAN PLATELET VOLUME 10.4 fl (9.4-12.3); MONOCYTES ABSOLUTE AUTO 1.2 K/mm3 (0.0-0.8); MONOCYTES PERCENT AUTO 9.1 % (0.0-8.0); NEUTROPHILS ABSOLUTE AUTO 9.1 K/mm3 (1.8-7.7); NEUTROPHILS PERCENT AUTO 67.3 % (41.0-71.0); PLATELET COUNT,PLT 300 K/mm3 (150-400); RED BLOOD CELL COUNT 4.03 M/mm3 (4.10-5.30); WHITE BLOOD CELL COUNT,WBC 13.52 K/mm3 (3.9-11.3)
[2024-05-11 04:55] LABS: A/G RATIO 0.8 (1-2); ALBUMIN 2.9 g/dl (3.4-5.0); ANION GAP 13.5 (5-15); BILIRUBIN TOTAL 0.2 mg/dL (0.2-1.0); BUN/CREATININE RATIO 23.8 (14-18); C-REACTIVE PROTEIN 3.91 mg/dL (<0.30); CALCIUM 8.4 mg/dL (8.5-10.1); CREATININE 0.8 mg/dL (0.55-1.02); EST CRCL DRUG DOSING (CG) 54.71 mL/min; MAGNESIUM 1.9 mg/dL (1.8-2.4); POTASSIUM,K 3.5 mEq/L (3.5-5.1); PROTEIN TOTAL,TP 6.4 g/dl (6.4-8.2)
[2024-05-11] MEDS ORDERED: Codeine/guaiFENesin 10-100 MG/5 ML Syrup 5 ML Cup PO PRN (10:20)
[2024-05-11] MEDS: Codeine/guaiFENesin 10-100 MG/5 ML Syrup 5 ML Cup PO SCH (11:40)
[2024-05-11] MEDS: Benzocaine/Cetylpyridinium/Menthol Lozenge MUCMEM PRN (18:19)
[2024-05-12 04:38] LABS: BASOPHILS PERCENT AUTO 0.4 % (0.0-1.0); EOSINOPHILS ABSOLUTE AUTO 0.3 K/mm3 (0.0-0.4); EOSINOPHILS PERCENT AUTO 3.6 % (0.0-6.0); HEMATOCRIT 35.4 % (37.0-47.0); HEMOGLOBIN 11.8 gm/dl (12.0-16.0); IMMATURE GRAN ABSOLUTE AUTO 0.04 K/mm3 (0.00-0.05); IMMATURE GRAN PERCENT AUTO 0.4 % (0.0-0.4); LYMPHOCYTES PERCENT AUTO 31.8 % (24.0-44.0); MEAN CORPUSCULAR HEMOGLOBIN 28.8 pg (28.0-32.0); MEAN CORPUSCULAR HGB CONC 33.3 g/dl (32.0-36.0); MEAN CORPUSCULAR VOLUME 86.3 fl (83.0-99.0); MEAN PLATELET VOLUME 9.7 fl (9.4-12.3); MONOCYTES PERCENT AUTO 10.3 % (0.0-8.0); NEUTROPHILS ABSOLUTE AUTO 5.1 K/mm3 (1.8-7.7); NEUTROPHILS PERCENT AUTO 53.5 % (41.0-71.0); PLATELET COUNT,PLT 301 K/mm3 (150-400); WHITE BLOOD CELL COUNT,WBC 9.56 K/mm3 (3.9-11.3)
[2024-05-12 05:12] LABS: A/G RATIO 0.8 (1-2); ALBUMIN 2.9 g/dl (3.4-5.0); ANION GAP 11.8 (5-15); BILIRUBIN TOTAL 0.3 mg/dL (0.2-1.0); BUN/CREATININE RATIO 17.5 (14-18); C-REACTIVE PROTEIN 2.8 mg/dL (<0.30); CALCIUM 8.8 mg/dL (8.5-10.1); CREATININE 0.8 mg/dL (0.55-1.02); EST CRCL DRUG DOSING (CG) 54.71 mL/min; MAGNESIUM 1.7 mg/dL (1.8-2.4); POTASSIUM,K 3.8 mEq/L (3.5-5.1); PROTEIN TOTAL,TP 6.5 g/dl (6.4-8.2)
[2024-05-12 05:36] LABS: SLIDE REVIEW ABNORMAL SMEAR
[2024-05-12] MEDS: Potassium Chloride 20 MEQ Tab.ER PO ONE ×2 (12:33→15:05)
[2024-05-12] MEDS: Magnesium Sulfate/Water Premix 2 GM in Premix Bag 1 BAG IV ONE (12:34)
[2024-05-12 14:56] VITALS: BP 158/64; PULSE 76
== END 2024-05-12 15:20 | disposition home or self-care (01) | DRG 193 ==
LOC: JD.ED 08:18 → JD.MS 11:49
PROVIDERS: ADMIT Student in an Organized Health Care Education/Training Program; ATTEND Student in an Organized Health Care Education/Training Program
DX: J10.1 Influenza due to other identified influenza virus with other respiratory manifestations (principal); J96.01 Acute respiratory failure with hypoxia; Z68.41 Body mass index [BMI] 40.0-44.9, adult; I50.9 Heart failure, unspecified; H54.7 Unspecified visual loss; E78.00 Pure hypercholesterolemia, unspecified; I11.0 Hypertensive heart disease with heart failure; G47.30 Sleep apnea, unspecified; F41.9 Anxiety disorder, unspecified; F32.A Depression, unspecified; E03.9 Hypothyroidism, unspecified; R79.89 Other specified abnormal findings of blood chemistry; J18.9 Pneumonia, unspecified organism; E66.9 Obesity, unspecified; I08.1 Rheumatic disorders of both mitral and tricuspid valves; Z79.899 Other long term (current) drug therapy; Z87.01 Personal history of pneumonia (recurrent); Z86.16 Personal history of COVID-19; Z98.890 Other specified postprocedural states; Z98.49 Cataract extraction status, unspecified eye
CPT/HCPCS: 0241U; 36415; 71045; 71045-26; 80053; 83605; 83735; 83880; 84484; 85025; 86140; 87040; 93005; 93010; 93306; 94640; 94668; 94760; 94761; 96374; 99223; 99232; 99239; 99285; 99285-25; A9270-GY; J0696; J1650; J2919; J3475; J3490; J7620-GY

== ENCOUNTER 2024-09-28 07:54 | Day surgery (SDC) | payer OTHER ==
[~2024-09-28 07:54] MED LIST: Sodium Chloride 0.9% 10 ML Syringe FLUSH PRN; Sodium Chloride 0.9% 10 ML Syringe FLUSH SCH
[2024-09-28] MEDS: Lactated Ringers 1,000 ML IV SCH (08:20)
[2024-09-28] MEDS ORDERED: Propofol 200 MG/20 ML SDV ONE (08:25)
[2024-09-28] MEDS ORDERED: Lidocaine 2% 5 ML SDV ONE (08:25)
[2024-09-28 10:41] VITALS: BP 140/82; PULSE 76
== END 2024-09-28 10:20 | disposition home or self-care (01) ==
LOC: JD.SDS 07:54
PROVIDERS: ATTEND Surgery
DX: Z12.11 Encounter for screening for malignant neoplasm of colon (principal); K57.30 Diverticulosis of large intestine without perforation or abscess without bleeding; G47.33 Obstructive sleep apnea (adult) (pediatric); I10 Essential (primary) hypertension; F41.9 Anxiety disorder, unspecified; Z79.899 Other long term (current) drug therapy
CPT/HCPCS: 45330; J2003; J2704; J7120; 00812

== ENCOUNTER 2025-05-20 15:54 | Emergency (ER) | payer OTHER ==
[2025-05-20 16:13] VITALS: PULSE 66
[2025-05-20] MEDS ORDERED: Sodium Chloride 0.9% 10 ML Syringe FLUSH PRN (16:34)
[2025-05-20 17:09] LABS: BASOPHILS ABSOLUTE AUTO 0.1 K/mm3 (0.0-0.2); BASOPHILS PERCENT AUTO 0.5 % (0.0-1.0); EOSINOPHILS ABSOLUTE AUTO 0.5 K/mm3 (0.0-0.4); EOSINOPHILS PERCENT AUTO 4.6 % (0.0-6.0); IMMATURE GRAN ABSOLUTE AUTO 0.08 K/mm3 (0.00-0.05); IMMATURE GRAN PERCENT AUTO 0.7 % (0.0-0.4); LYMPHOCYTES ABSOLUTE AUTO 3.0 K/mm3 (1.0-4.8); LYMPHOCYTES PERCENT AUTO 26.4 % (24.0-44.0); MEAN PLATELET VOLUME 9.6 fl (9.4-12.3); MONOCYTES ABSOLUTE AUTO 0.7 K/mm3 (0.0-0.8); MONOCYTES PERCENT AUTO 6.5 % (0.0-8.0); NEUTROPHILS ABSOLUTE AUTO 7.0 K/mm3 (1.8-7.7); NEUTROPHILS PERCENT AUTO 61.3 % (41.0-71.0); NRBC ABSOLUTE 0.00 (0.00-0.02); NRBC PERCENT 0.0 % (0.0-0.2); PLATELET COUNT,PLT 360 K/mm3 (150-400); RED BLOOD CELL COUNT 4.90 M/mm3 (4.10-5.30); WHITE BLOOD CELL COUNT,WBC 11.38 K/mm3 (3.9-11.3)
[2025-05-20 17:28] LABS: A/G RATIO 1.1 (1-2); ALANINE AMINOTRANSFERASE,ALT 45.0 U/L (14-59); ASPARTATE AMNIOTRANSFERASE,AST 21.0 U/L (15-37); BILIRUBIN TOTAL 0.3 mg/dL (0.2-1.0); BLOOD UREA NITROGEN,BUN 16.0 mg/dL (7-18); CARBON DIOXIDE,CO2 28.0 mEq/L (21-32); CHLORIDE,CL 105.0 mEq/L (98-107); CREATININE 0.8 mg/dL (0.55-1.02); EST CRCL DRUG DOSING (CG) 53.97 mL/min; ESTIMATED GFR 81.0 mL/min (>60); GLUCOSE RANDOM 107.0 mg/dL (70-99); POTASSIUM,K 3.6 mEq/L (3.5-5.1); PROTEIN TOTAL,TP 7.7 g/dl (6.4-8.2); SODIUM,NA 144.0 mEq/L (136-145); TROPONIN I HIGH SENSITIVITY 20.0 pg/mL (<=51)
[2025-05-20 21:00] VITALS: BP 144/74
== END 2025-05-20 20:34 | disposition home or self-care (01) ==
LOC: JD.ED 15:54
DX: M79.89 Other specified soft tissue disorders (principal); I11.0 Hypertensive heart disease with heart failure; I50.9 Heart failure, unspecified; E78.00 Pure hypercholesterolemia, unspecified; Z86.16 Personal history of COVID-19; Z79.899 Other long term (current) drug therapy
CPT/HCPCS: 36415; 80053; 83735; 84484; 85025; 93005; 93971-26-LT; 93971-LT; 99284